=== PATIENT | female | born 1940 | race Caucasian/White ===

== ENCOUNTER 2018-10-07 23:15 | Emergency (ER) | payer MEDICARE, OTHER, SELFPAY ==
[2018-10-07 23:17] VITALS: BP 166/95; PULSE 90; RESP 18; TEMP 36.7; O2SAT 96; BMI 34.9
--- NOTE | 2018-10-07 23:49 | ED.VISSUMM ---
- ER Visit Summary Date of Service: 10/07/18 Chief Complaint: Abdominal pain History of Present Illness: The patient is a 78 F who presents with abdominal pain. Symptoms began about 4 hours ago. She ate some tortilla chips with guacamole tonight which she states was spicy. She complains of a tightness around her upper abdomen all the way around to her back. She also complains of feeling bloated. She has been having intermittent similar symptoms for about the past year but is always gone away on its own. Patient symptoms were more consistent tonight so she presented here. She currently rates her pain as an 8 out of 10. She denies any nausea vomiting diarrhea fevers chest pain shortness of breath. She has not noticed any exacerbating or relieving factors. She denies any history of abdominal surgery. No cough. No shortness of breath. Physical Examination: Afebrile blood pressure 166/95 Moist mucous membranes Heart regular rate and rhythm Lungs are clear Abdomen soft nondistended she does have some epigastric and left upper quadrant tenderness no guarding no rebound no [place] sign Back nontender no CVA tenderness Alert Test Results: CBC CMP lipase notable for BUN 42, creatinine 1.25. Hemoglobin 10.9. CT of the abdomen and pelvis shows no acute findings. KG shows normal sinus rhythm at a rate of 76. Emergency Department Course and Treatment: Patient was treated here with IV fluids and Toradol. Initial concern was that this may be related to biliary colic. Workup as above is unremarkable. On reevaluation patient is resting comfortably no distress. It may be related to stomach pathology such as gastritis. We will start on proton pump inhibitor therapy and the patient was advised to follow-up with her primary care physician. She understands to return for new or worsening symptoms. She was discharged. Treatment Plan: [] Disposition: Discharge Impression: Epigastric abdominal pain This note was generated with MyWants dictation software. It may contain incorrect words, spelling, and punctuation that were not noted in review of the chart prior to signing ED Disposition - Plan for ED Patient: Instructions: ED Abdominal Pain Unkn Cause Prescriptions: Omeprazole [Prilosec] 20 mg PO DAILY #30 cap Referrals: Sukhjinder Garcia MD [Primary Care Provider] -
[2018-10-07] MEDS: Ketorolac 30 MG/ML Syringe 15 MG IV (23:56)
[2018-10-07] MEDS: 0.9% Normal Saline 1,000 ML 1000 ML IV (23:56)
[2018-10-07 23:57] LABS: Absolute Lymphocyte Count 2.23 X10^3/ul (0.83-4.51); Absolute Neutrophil Count 4.5 X10^3/uL (2.0-7.7); Basophil# 0.02 X10^3/uL; Basophil% 0.3 % (0-1); Eosinophil# 0.29 X10^3/uL; Eosinophils% 3.8 % (0-5); Hematocrit 35.1 % (37-47); Hemoglobin 10.9 g/dl (12.0-15.0); Lymphocyte # 2.23 X10^3/ul (4.0); Lymphocyte % 28.9 % (19-41); Mean Corp Hgb Conc 31.1 g/gl (32-36); Mean Corpuscular Hgb 29.1 pg (27.0-32.0); Mean Corpuscular Volume 93.9 fL (81-99); Mean Platelet Vol. 10.7 fl (6.2-12.0); Monocyte% 9.1 % (0-10); Neutrophil # 4.45 X10^3/uL (2.7-7.7); Neutrophil % 57.6 % (47-70); POSITIVE COUNT NO; POSITIVE DIFFERENTIAL NO; POSITIVE MORPHOLOGY NO; Platelet Count 194 K/mm3 (150-450); RBC Distribution Width CV 14.7 % (11.6-14.6); RBC Distribution Width SD 47.4 fl (35.1-43.9); Red Blood Count 3.74 M/mm3 (4.2-5.4); White Blood Count 7.7 K/mm3 (4.4-11.0)
[2018-10-08 00:13] LABS: ALB/GLOB Ratio 1.1 RATIO (0.9-2.4); AST(SGOT) 18 U/L (15-37); Alanine Aminotransfer ALT/SGPT 24 U/L (13-56); Albumin, Serum 3.4 g/dL (3.2-5.0); Alkaline Phosphatase 63 U/L (45-117); Anion Gap 6 (5-15); BUN 42 mg/dL (7-18); BUN/Creat Ratio 33.6 RATIO (10-20); Calcium,Total 8.5 mg/dL (8.5-10.1); Chloride 104 mmol/L (98-107); Creatinine, Serum 1.25 mg/dL (0.55-1.02); EST Glomerular Filtration Rate 44 mL/min (>60); Est Glom Filt Rate - Afr Amer 53 mL/min (>60); Estimated Creatinine Clearance 27.99 ml/min; Globulin 3.2 g/dL (2.2-4.2); Glucose 194 mg/dL (74-106); Lipase 194 U/L (73-393); Potassium 4.2 mmol/L (3.5-5.1); Protein, Total 6.6 g/dL (6.4-8.2); Sodium Level 137 mmol/L (136-145)
[2018-10-08 00:37] LABS: Bacteria 0 SEEN /hpf (None Seen); Mucous, Urine 0 SEEN /hpf (<or=2+); Red Blood Cells-Urine 0 SEEN /hpf (0-5); Squamous Epithelial Cells - UA 0 SEEN /hpf (5-10)
[2018-10-08 00:39] LABS: Color, Urine Yellow (Yellow); Glucose, Dipstick Normal (Normal); Ketone-Dipstick Negative (Negative); Leukocyte Esterase-Dipstick 500 /ul (Negative); Nitrite-Dipstick Negative (Negative); Occult Blood-Urine Negative /ul (Negative); Protein-Dipstick Negative (Negative); Urine Bilirubin Dipstick Negative (Negative); Urine Clarity Clear (Clear); Urine Urobilinogen Normal (Normal)
[2018-10-08 00:45] LABS: White Blood Cells 10-25 SEEN /hpf (0-5)
--- NOTE | 2018-10-08 02:26 | EKG12_ITS ---
Test Reason : ABD PAIN Blood Pressure : / mmHG Vent. Rate : 076 BPM Atrial Rate : 076 BPM P-R Int : 164 ms QRS Dur : 090 ms QT Int : 360 ms P-R-T Axes : 069 011 046 degrees QTc Int : 405 ms Normal sinus rhythm Consider precordial lead misplacement (V1-V3) Recommend repeat ECG Confirmed by IRAIDA ROWLAND, RADHA ([id number]), assistant production editor BENITO HEAD ([id number]) on 10/11/2018 2:07:34 PM Referred By: ROSANNE Confirmed By:RADHA KHOURY MD
--- NOTE | 2018-10-08 02:27 | ED.DEP ---
ED Disposition - Plan for ED Patient: Instructions: ED Abdominal Pain Unkn Cause Prescriptions: Omeprazole [Prilosec] 20 mg PO DAILY #30 cap Referrals: Sukhjinder Garcia MD [Primary Care Provider] -
[2018-10-08 03:09] VITALS: RESP 16
--- NOTE | 2018-10-08 23:48 | CT_ITS ---
STUDY: CT ABDOMEN AND PELVIS WITH CONTRAST REASON FOR EXAM: Female, 78 years old. Abdominal pain RADIATION DOSAGE (If Supplied By Facility): CTDIvol = ( 21.82 ) mGy, DLP = ( 1107.81 ) mGycm TECHNIQUE: Transaxial images were obtained from the dome of the diaphragm to the symphysis pubis without oral contrast. 100ML IV Isovue 300 was administered. Sagittal and coronal images were reconstructed. Individualized dose optimization techniques were used for this CT. COMPARISON: None. FINDINGS: The lung bases are clear. The liver is normal. No dilated intrahepatic biliary radicles. The gallbladder is markedly contracted and contains no calculi. The spleen is normal. The pancreas is normal. Both adrenals are normal. The kidneys are normal with no masses, calculi or hydronephrosis The stomach is normal. There is no bowel distention, acute appendicitis or diverticulitis. No constricting lesions are seen in large bowel. The abdominal wall is intact with no hernias. There is no ascites or any free intraperitoneal air. No indication of epiploic appendagitis The vascular structures in the retroperitoneum are normal. There is no retrocrural, retroperitoneal or mesenteric adenopathy. Degenerative changes of the lower thoracic and upper lumbosacral spine The urinary bladder is normal.--The uterus is normal. There is no inguinal or pelvic adenopathy. There is no inguinal hernia. . CT/Abdomen/Pelvis W IV Cont ONLY IMPRESSION: No acute findings in the abdomen and pelvis. Specifically there is no acute appendicitis or diverticulitis. No renal calculi. No hydronephrosis Electronically Signed: Jeff Bauer MD at 2:20 EDT Tel , Service support ,
== END 2018-10-08 03:09 | disposition home or self-care (01) ==
LOC: ED 23:56
PROVIDERS: Emergency Provider Emergency Medicine; Family Provider Family Medicine; PCP Family Medicine
DX: R10.13 Epigastric pain (principal); I10 Essential (primary) hypertension; E11.9 Type 2 diabetes mellitus without complications; Z79.84 Long term (current) use of oral hypoglycemic drugs; Z79.899 Other long term (current) drug therapy
CPT/HCPCS: 74177; 80053; 81001; 83690; 85025; 93005; 96361; 96374; 99283; J7030; Q9967; A4216

== ENCOUNTER 2020-03-21 14:41 | Inpatient (IN) | payer MEDICARE, OTHER, SELFPAY ==
[2020-03-21] VITALS (10 sets, daily range): BP systolic 105–177; BP diastolic 45–90; PULSE 77–113; RESP 16–34; TEMP 36.7–39.4; O2SAT 92–97; BMI 35.4; BMI 35.6
--- NOTE | 2020-03-21 15:02 | ED.VISSUMM ---
- ER Visit Summary Date of Service: 03/21/20 Chief Complaint: Elevated blood sugar History of Present Illness: The patient is a 79 F presenting with elevated blood sugar. Patient states that her blood sugar has been running in the 200s. Over last 2 days it has been running in 300s. She took her 's Flomax 2 days ago. She is unsure if this is related. She denies fever. Denies chest pain or shortness of breath. Denies abdominal pain, nausea, vomiting. Denies urinary complaints. Denies other complaints. Physical Examination: Vitals are stable. Patient is afebrile. Alert no acute distress. HEENT exam is unremarkable. Neck is supple. Lungs are clear and equal bilaterally. Heart is regular rate and rhythm. Abdomen is soft nontender nondistended. No guarding or rebound Extremities are unremarkable. Skin is warm and dry. No focal neurologic deficit. Remainder of exam is unremarkable. Emergency Department Course and Treatment: CBC shows white count 18.3. Chemistries show sodium 130, glucose 326, BUN 42, creatinine 2.17. Previous creatinine 1.25. Chest x-ray shows no acute process. Urinalysis shows 50-100 white blood cells, 4+ bacteria. Urine culture was sent. Acetone negative. Patient was given Rocephin IV, IV fluids. Discussed with the hospitalist for admission. Disposition: Admission Impression: Cystitis, SOLO, hyponatremia This note was generated with KARAL[employer] dictation software. It may contain incorrect words, spelling, and punctuation that were not noted in review of the chart prior to signing ED Disposition - Plan for ED Patient: Referrals: Sukhjinder Garcia MD [Primary Care Provider] -
[2020-03-21 15:22] LABS: Absolute Lymphocyte Count 0.56 X10^3/uL (0.83-4.51); Absolute Neutrophil Count 15.9 X10^3/uL (2.0-7.7); Basophil# 0.03 X10^3/uL; Basophil% 0.2 % (0-1); Eosinophil# 0.21 X10^3/uL; Eosinophils% 1.2 % (0-5); Hematocrit 35.7 % (37-47); Hemoglobin 11.7 g/dL (12.0-15.0); Lymphocyte # 0.56 X10^3/ul (4.0); Lymphocyte % 3.1 % (19-41); Mean Corp Hgb Conc 32.8 g/dL (32-36); Mean Corpuscular Hgb 30.2 pg (27.0-32.0); Mean Platelet Vol. 11.6 fl (6.2-12.0); Monocyte# 1.11 X10^3/uL; Monocyte% 6.1 % (0-10); NRBC Flagged by Analyzer 0 % (0-5); Neutrophil # 15.87 X10^3/uL (2.7-7.7); Neutrophil % 86.8 % (47-70); POSITIVE DIFFERENTIAL YES; POSITIVE MORPHOLOGY YES; Platelet Count 172 K/mm3 (150-450); RBC Distribution Width CV 13.7 % (11.6-14.6); RBC Distribution Width SD 46.4 fl (35.1-43.9); Red Blood Count 3.88 M/mm3 (4.2-5.4); White Blood Count 18.3 K/mm3 (4.4-11.0)
[2020-03-21 15:27] LABS: Differential Indicated SCAN CRITERIA MET
--- NOTE | 2020-03-21 15:45 | RAD_ITS ---
STUDY: X-RAY CHEST REASON FOR EXAM: Female, 79 years old. SOB TECHNIQUE: Single AP portable view of the chest. COMPARISON: None. FINDINGS: The lungs are clear and expanded. There is no demonstrated pleural abnormality. Normal size heart. Normal mediastinum and eleuterio. Normal visualized pulmonary arteries. Normal visualized aortic arch and descending thoracic aorta. Normal visualized thoracic spine. Normal visualized ribs, clavicles, and shoulders. There is no demonstrated abnormality of the visualized soft tissue structures of the upper abdomen. RAD/Chest 1 View (Portable) IMPRESSION: Normal x-ray examination of the chest. Electronically Signed: Hermes Whitehead MD at 16:06 EDT Tel , Service support ,
[2020-03-21 15:51] LABS: Anion Gap 9 (5-15); BUN 42 mg/dL (7-18); BUN/Creat Ratio 19.4 RATIO (10-20); Calcium,Total 9.7 mg/dL (8.5-10.1); Chloride 99 mmol/L (98-107); Creatinine, Serum 2.17 mg/dL (0.55-1.02); EST Glomerular Filtration Rate 23 mL/min (>60); Est Glom Filt Rate - Afr Amer 28 mL/min (>60); Estimated Creatinine Clearance 15.86 ml/min; Glucose 326 mg/dL (74-106); Potassium 4.4 mmol/L (3.5-5.1); Sodium Level 130 mmol/L (136-145)
[2020-03-21 16:10] LABS: Mucous, Urine 0 SEEN /hpf (<or=2+); Squamous Epithelial Cells - UA 0 SEEN /hpf (5-10)
[2020-03-21 16:33] LABS: Color, Urine Yellow (Yellow); Glucose, Dipstick 1000 mg/dl (Normal); Ketone-Dipstick 50 mg/dl (Negative); Leukocyte Esterase-Dipstick 500 /ul (Negative); Nitrite-Dipstick Negative (Negative); Occult Blood-Urine 250 /ul (Negative); Protein-Dipstick 100 mg/dl (Negative); Urine Bilirubin Dipstick Negative (Negative); Urine Clarity Cloudy (Clear); Urine Urobilinogen Normal (Normal)
[2020-03-21 17:02] LABS: Bacteria 4+ /hpf (None Seen); White Blood Cells 50-100 SEEN /hpf (0-5)
[2020-03-21 17:03] LABS: Red Blood Cells-Urine 5-10 SEEN /hpf (0-5)
--- NOTE | 2020-03-21 17:13 | NURSING ---
DR TESSA AYALA
--- NOTE | 2020-03-21 17:34 | NURSING ---
MED SURG TERELETSSATISH OBS CYSTITIS, SOLO
--- NOTE | 2020-03-21 17:35 | PCM.HP.STD ---
Problem List (1) UTI (urinary tract infection) Status: Acute (2) SOLO (acute kidney injury) Status: Acute (3) Hyponatremia Status: Chronic (4) HTN (hypertension) Status: Chronic (5) Diabetes Status: Chronic Qualifiers: Diabetes mellitus type: type 2 History of Present Illness Date of Admission: 03/21/20 Chief Complaint: high blood sugar The patient is a 79 year old F with pmhx DMt2, HTN, obesity who presented to the ER with concern of her blood sugar running high,. She has noticed that her blood sugars have been running in the 200s. She has also noticed fevers and chills at home for 2 days. She denies dysuria, but did notice that she has had urinary incontinence. She took one of her husbands flomax pills because she thought that might help. In the ER she appears to have a UTI, SOLO, and elevated blood sugar. Her PCP treated her for UTI about 2 months ago as an outpatient. [] Past Medical History Past Medical History (Chronic Problems): Chronic Problems HTN (hypertension) (Chronic) Diabetes (Chronic) Hyponatremia (Chronic) Allergies diphenhydramine HCl [From Benadryl] Adverse Reaction (Verified 03/21/20 14:45) Other CAN'T SLEEP SLEEPING PILL Adverse Reaction (Uncoded 03/21/20 14:45) Other CAUSES ANXIETY, NERVOUS FEELING Home Medications: Ambulatory Orders Medication Instructions Recorded Fish Oil/Dha/Epa [Fish Oil 1,200 1 each PO BID 11/06/15 mg Fish Oil] Glimepiride [Amaryl] 4 mg PO BID 11/06/15 Lisinopril [Zestril] 5 mg PO DAILY 11/06/15 Cholecalciferol (Vitamin D3) 5,000 unit PO DAILY 03/21/20 [Vitamin D3] Garlic 1,000 mg PO DAILY 03/21/20 Turmeric Root Extract [Turmeric] 500 mg PO DAILY 03/21/20 Ubidecarenone [Co Q-10] 100 mg PO DAILY 03/21/20 Surgical History: no surgical history Psychiatric History: No pertinent psych hx 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 Denies: Weight Change HEENT: Denies: Head Aches, Sinus Congestion, Sinus Drainage Cardiovascular: Denies: Chest Pain, Chest Pressure, Chest Tightness, Palpitations, Syncope Respiratory: Denies: Cough, Shortness of Breath, Shortness of breath at rest, Shortness of breath upon exertion, Sputum production Gastrointestinal: Denies: Abdominal Pain, Diarrhea, Nausea, Vomiting Genitourinary: Reports: Incontinence. Denies: Dysuria, Frequency, Urgency Musculoskeletal: Denies: Joint Pain, Joint Tenderness Skin: Denies: Rash, Wounds Neurological: Denies: Numbness, Tingling, Focal weakness Psychiatric: Denies: Anxiety, Depression, Homicidal Ideations, Suicidal Ideations Hematologic/ Lymphatic: Denies: Easy Bruising, Easy Bleeding VTE Information - Inpt Only VTE Present on Admission: No VTE Mechan Device Prophylaxis: None VTE Pharm Prophylaxis ordered?: Yes Patient Problems: Active and Suspected Problems UTI (urinary tract infection) (Acute) SOLO (acute kidney injury) (Acute) - Physical Exam Vitals/I&O's: Vital Signs Temp Pulse Resp BP Pulse Ox 98.0 F 83 18 105/48 L 95 03/21/20 14:42 03/21/20 16:24 03/21/20 16:24 03/21/20 16:24 03/21/20 16:24 Oxygen Delivery Method Room Air Weight: 187 lb 2.759 oz Body Mass Index (BMI) 35.4 Finger Stick Blood Glucose 211 Intake and Output for Last 24 Hours 03/19/20 03/20/20 03/21/20 23:59 23:59 23:59 Intake Total 1000 / 1000 Balance 1000 / 1000 General: Alert, Oriented x3, Cooperative HEENT: Atraumatic, PERRLA, EOMI, Normocephalic Neck: Supple, No JVD, Negative Carotid Bruits Lungs: Clear to auscultation, Normal air movement Cardiovascular: Regular rate, No murmurs Abdomen: Bowel Sounds Present, Soft, Non Tender Extremities: No edema, Capillary Refill Less than 3 Seconds Skin: No rashes, No breakdown Musculoskeletal: No Tenderness to Palpation of Joints or Extremities Neurological: Cranial nerves II-XII grossly intact Psych/Mental Status: Normal Affect, Appropriate, Alert and oriented to time, place, person, mood and affect Laboratory Results 03/21/20 15:10: WBC 18.3 H, RBC 3.88 L, Hgb 11.7 L, Hct 35.7 L, MCV 92.0, MCH 30.2, MCHC 32.8, RDW Std Deviation 46.4 H, RDW Coeff of Angelina 13.7, Plt Count 172, MPV 11.6, Immature Gran % (Auto) 2.600 H, Neut % (Auto) 86.8 H, Lymph % (Auto) 3.1 L, [place] % (Auto) 6.1, Eos % (Auto) 1.2, Baso % (Auto) 0.2, Absolute Neuts (auto) 15.9 H, Absolute Lymphs (auto) 0.56 L, Nucleated RBC % 0, Differential Comment COMMENT 03/21/20 15:10: Sodium 130 L, Potassium 4.4, Chloride 99, Carbon Dioxide 22.0, Anion Gap 9, BUN 42 H, Creatinine 2.17 H, Estim Creat Clear Calc 15.86, Est GFR (MDRD) Af Amer 28 L, Est GFR (MDRD) Non-Af 23 L, BUN/Creatinine Ratio 19.4, Glucose 326 H, Calcium 9.7 03/21/20 15:10: Acetone Level NEGATIVE 03/21/20 16:00: Urine Color Yellow, Urine Clarity Cloudy, Urine pH 5.0, Ur Specific [place] 1.020, Urine Protein 100 H, Urine Glucose (UA) 1000 H, Urine Ketones 50 H, Urine Occult Blood 250 H, Urine Nitrite Negative, Urine Bilirubin Negative, Urine Urobilinogen Normal, Ur Leukocyte Esterase 500 H, Urine RBC 5-10 SEEN, Urine WBC 50-100 SEEN, Ur Squamous Epith Cells 0 SEEN, Urine Bacteria 4+, Urine Mucus 0 SEEN Current Medications Ceftriaxone Sodium (Rocephin) 1 gm in 50 mls @ 100 mls/hr IV X1 ONE Stop: 03/21/20 17:43 Assessment/Plan All Active Problems UTI (urinary tract infection) (Acute) SOLO (acute kidney injury) (Acute) 1. Acute cystitis - + UA, + WBC elevation. No other evidence to suggest sepsis. Start rocephin and await cx. 2. SOLO - likely due to dehydration and UTI - hydrate with IVF overnight. hold lisinopril. 3. Hyponatremia - suspect Hypovolemic - IV NS overnight. 4. DMt2 with hyperglycemia - add SSI 5. HTN - hold lisinopril DVT ppx: heparin This patient was seen by Pancho White PA-C under the supervision of Dr. Macias.
[2020-03-21] MEDS: Ceftriaxone 1 GM/50 ML BAG IV (17:44)
[2020-03-21] MEDS: 0.9% Normal Saline 1,000 ML 150 ML IV (18:43)
[2020-03-21 18:51] LABS: Bedside Glucose 274 mg/dL (70-110)
[2020-03-21] MEDS: Acetaminophen 325 MG Tablet 650 MG PO (19:44)
--- NOTE | 2020-03-21 19:53 | CT_ITS ---
STUDY: CT ABDOMEN AND PELVIS WITHOUT CONTRAST REASON FOR EXAM: Female, 79 years old. LEFT FLANK PAIN, CONCERN FOR STONE, HX UTI,SOLO, HTN, DIAB RADIATION DOSAGE (If Supplied By Facility): CTDIvol = ( 21.91 ) mGy, DLP = ( 1039.75 ) mGycm TECHNIQUE: Transaxial images were obtained from the dome of the diaphragm to the symphysis pubis without oral contrast, and without intravenous contrast. Sagittal and coronal images were reconstructed. Individualized dose optimization techniques were used for this CT. COMPARISON: CT of abdomen and pelvis dated October 08, 2018 FINDINGS: Tiny right pleural effusion with minimal pleural thickening and subsegmental atelectasis is noted. Minor pleural thickening is present at posterior aspect of the left lower lobe. Some interstitial fibrotic changes are also present in both lung bases. Significant mitral valve calcifications are present. Normal liver. The gallbladder is contracted. Normal spleen. Normal pancreas. Normal bilateral adrenal glands. Mild right hydronephrosis and hydroureter and perinephric stranding as well as mild enlargement of the right kidney is present. No visualized radiopaque stone of the kidney or ureter or bladder. High probability a recently passed right kidney stone obscured by the fluid in the bladder. Normal left kidney. Normal visualized stomach. Normal small intestine. There are multiple colonic diverticula consistent with diverticulosis. The appendix is visualized and appears normal. There is diffuse atherosclerotic calcification of the abdominal aorta, without a demonstrated aneurysm. Normal inferior vena cava. Normal retroperitoneum. Normal urinary bladder. Unremarkable uterus and adnexal regions. Normal abdominal wall. There are diffuse degenerative changes of the visualized lumbar spine. CT/Abdomen/Pelvis without Cont IMPRESSION: Mild right hydronephrosis and hydroureter and perinephric stranding as well as mild enlargement of the right kidney is present. No visualized radiopaque stone of the kidney or ureter or bladder. High probability a recently passed right kidney stone obscured by the fluid in the bladder. Colonic diverticulosis. Electronically Signed: Andrew Powers MD at 21:07 EDT , Service support ,
[2020-03-21] MEDS: 0.9% Normal Saline 1,000 ML 999 ML IV ×2 (20:01→22:04)
[2020-03-21 21:14] LABS: Lactic Acid 1.7 mmol/L (0.4-1.9)
[2020-03-21] MEDS: Insulin Lispro 100 UNIT/ML INSULN.PEN SC (21:58)
[2020-03-21 22:50] LABS: Bedside Glucose 249 mg/dL (70-110)
[2020-03-22 03:27] VITALS: BP 121/61; PULSE 90; RESP 18; TEMP 36.9; O2SAT 96
[2020-03-22] MEDS: 0.9% Normal Saline 1,000 ML 150 ML IV ×2 (03:29→09:46)
[2020-03-22 06:31] LABS: Absolute Neutrophil Count 13.6 X10^3/uL (2.0-7.7); Basophil# 0.04 X10^3/uL; Basophil% 0.3 % (0-1); Eosinophils% 1.3 % (0-5); Hematocrit 33.9 % (37-47); Lymphocyte % 3.3 % (19-41); Mean Corp Hgb Conc 32.4 g/dL (32-36); Mean Corpuscular Hgb 30.6 pg (27.0-32.0); Mean Corpuscular Volume 94.4 fL (81-99); Mean Platelet Vol. 10.5 fl (6.2-12.0); Monocyte# 0.68 X10^3/uL; Monocyte% 4.4 % (0-10); NRBC Flagged by Analyzer 0 % (0-5); Neutrophil # 13.64 X10^3/uL (2.7-7.7); Neutrophil % 88.6 % (47-70); POSITIVE DIFFERENTIAL YES; POSITIVE MORPHOLOGY YES; Platelet Count 132 K/mm3 (150-450); RBC Distribution Width CV 13.8 % (11.6-14.6); RBC Distribution Width SD 48.2 fl (35.1-43.9); Red Blood Count 3.59 M/mm3 (4.2-5.4); White Blood Count 15.4 K/mm3 (4.4-11.0)
[2020-03-22 06:33] LABS: Differential Indicated SCAN CRITERIA MET
[2020-03-22] MEDS: Insulin Lispro 100 UNIT/ML INSULN.PEN SC ×2 (06:45→16:53)
[2020-03-22 06:50] LABS: Differential Comment SCANNED
[2020-03-22 06:50] LABS: Bedside Glucose 237 mg/dL (70-110)
[2020-03-22 06:56] LABS: Anion Gap 7 (5-15); BUN 42 mg/dL (7-18); BUN/Creat Ratio 23.1 RATIO (10-20); Calcium,Total 8.4 mg/dL (8.5-10.1); Chloride 107 mmol/L (98-107); Creatinine, Serum 1.82 mg/dL (0.55-1.02); EST Glomerular Filtration Rate 28 mL/min (>60); Est Glom Filt Rate - Afr Amer 34 mL/min (>60); Glucose 232 mg/dL (74-106); Potassium 4.2 mmol/L (3.5-5.1); Sodium Level 137 mmol/L (136-145)
[2020-03-22 07:41] VITALS: BP 158/68; PULSE 93; RESP 18; TEMP 38.2; O2SAT 98
--- NOTE | 2020-03-22 07:42 | PCM.PN.HOSP ---
Patient Problems: Active and Suspected Problems UTI (urinary tract infection) (Acute) SOLO (acute kidney injury) (Acute) Vitals/I&O's: Vital Signs Temp Pulse Resp BP Pulse Ox 100.7 F H 93 18 158/68 H 98 03/22/20 07:41 03/22/20 07:41 03/22/20 07:41 03/22/20 07:41 03/22/20 07:41 Oxygen Delivery Method Room Air Weight: 188 lb 11.451 oz Body Mass Index (BMI) 35.6 Finger Stick Blood Glucose 211 Intake and Output for Last 24 Hours 03/20/20 03/21/20 03/22/20 23:59 23:59 23:59 Intake Total 3405.0 / 3555.0 1155 / 1155 Balance 3405.0 / 3555.0 1155 / 1155 Laboratory Results 03/21/20 15:10: WBC 18.3 H, RBC 3.88 L, Hgb 11.7 L, Hct 35.7 L, MCV 92.0, MCH 30.2, MCHC 32.8, RDW Std Deviation 46.4 H, RDW Coeff of Angelina 13.7, Plt Count 172, MPV 11.6, Immature Gran % (Auto) 2.600 H, Neut % (Auto) 86.8 H, Lymph % (Auto) 3.1 L, [place] % (Auto) 6.1, Eos % (Auto) 1.2, Baso % (Auto) 0.2, Absolute Neuts (auto) 15.9 H, Absolute Lymphs (auto) 0.56 L, Nucleated RBC % 0, Differential Comment COMMENT 03/21/20 15:10: Sodium 130 L, Potassium 4.4, Chloride 99, Carbon Dioxide 22.0, Anion Gap 9, BUN 42 H, Creatinine 2.17 H, Estim Creat Clear Calc 15.86, Est GFR (MDRD) Af Amer 28 L, Est GFR (MDRD) Non-Af 23 L, BUN/Creatinine Ratio 19.4, Glucose 326 H, Calcium 9.7 03/21/20 15:10: Acetone Level NEGATIVE 03/21/20 16:00: Urine Color Yellow, Urine Clarity Cloudy, Urine pH 5.0, Ur Specific [place] 1.020, Urine Protein 100 H, Urine Glucose (UA) 1000 H, Urine Ketones 50 H, Urine Occult Blood 250 H, Urine Nitrite Negative, Urine Bilirubin Negative, Urine Urobilinogen Normal, Ur Leukocyte Esterase 500 H, Urine RBC 5-10 SEEN, Urine WBC 50-100 SEEN, Ur Squamous Epith Cells 0 SEEN, Urine Bacteria 4+, Urine Mucus 0 SEEN 03/21/20 18:39: POC Glucose 274 H 03/21/20 20:23: Lactic Acid 1.7 03/21/20 21:54: POC Glucose 249 H 03/22/20 06:15: WBC 15.4 H, RBC 3.59 L, Hgb 11.0 L, Hct 33.9 L, MCV 94.4, MCH 30.6, MCHC 32.4, RDW Std Deviation 48.2 H, RDW Coeff of Angelina 13.8, Plt Count 132 L, MPV 10.5, Immature Gran % (Auto) 2.100 H, Neut % (Auto) 88.6 H, Lymph % (Auto) 3.3 L, [place] % (Auto) 4.4, Eos % (Auto) 1.3, Baso % (Auto) 0.3, Absolute Neuts (auto) 13.6 H, Absolute Lymphs (auto) 0.50 L, Nucleated RBC % 0, Differential Comment SCANNED 03/22/20 06:15: Sodium 137, Potassium 4.2, Chloride 107, Carbon Dioxide 23.0, Anion Gap 7, BUN 42 H, Creatinine 1.82 H, Estim Creat Clear Calc 18.60, Est GFR (MDRD) Af Amer 34 L, Est GFR (MDRD) Non-Af 28 L, BUN/Creatinine Ratio 23.1 H, Glucose 232 H, Calcium 8.4 L 03/22/20 06:15: Hemoglobin A1c Pending 03/22/20 06:43: POC Glucose 237 H Current Medications Acetaminophen (Tylenol) 650 mg PO Q4H PRN PRN PRN Reason: Pain Score 1-10/Temp > 100.7 F Al Hydroxide/Mg Hydroxide (Mylanta Ii) 30 ml PO Q6H PRN PRN PRN Reason: Gastric Burning Albuterol Sulfate (Ventolin Aerosols) 2.5 mg INHALATION Q2H PRN PRN PRN Reason: Dyspnea, wheezing Bisacodyl (Dulcolax) 10 mg PO DAILY PRN PRN PRN Reason: Constipation Docusate Sodium (Colace) 200 mg PO BID PRN PRN PRN Reason: Constipation Hydralazine HCl (Apresoline Iv) 10 mg IV Q4H PRN PRN PRN Reason: SBP > 160 Sodium Chloride () 1,000 mls @ 150 mls/hr IV .[id number] [facility] Last Admin: 03/22/20 03:29 Dose: 150 mls/hr Documented by: Ceftriaxone Sodium 2 gm/ (Sodium Chloride) 50 mls @ 100 mls/hr IV Q24 [facility] Insulin Human Lispro (Humalog Kwikpen (Bkc)) 0 unit SC ACHS [facility]; Protocol Last Admin: 03/22/20 06:45 Dose: 6 unit Documented by: Morphine Sulfate () 1 - 2 mg IV Q4H PRN PRN PRN Reason: Pain Score 4-5/10 Morphine Sulfate () 2 - 4 mg IV Q3H PRN PRN PRN Reason: Pain Score 6-10/10 Morphine Sulfate () 2 - 4 mg IV Q3H PRN PRN PRN Reason: Pain Score 6-10/10 Ondansetron HCl (Zofran) 4 mg IV Q8H PRN PRN PRN Reason: Nausea Oxycodone HCl (Oxyir) 5 mg PO Q4H PRN PRN PRN Reason: Pain Score 4-5/10 Polyethylene Glycol (Miralax) 17 gm PO DAILY [facility] Prochlorperazine Edisylate (Compazine Iv) 10 mg IV Q6H PRN PRN PRN Reason: Nausea/Vomiting Sodium Chloride () 10 - 40 ml IV UD PRN PRN Reason: SALINE FLUSH STROKE Vital Signs/Narrative: Vital Signs Temp Pulse Resp BP Pulse Ox 03/22/20 07:41 100.7 F H 93 18 158/68 H 98 Medical Necessity - Tobacco Use Smoking Status: Never smoker Tobacco Use: Non-smoker Assessment/Plan All Active Problems UTI (urinary tract infection) (Acute) SOLO (acute kidney injury) (Acute) 1. Acute cystitis - + UA, + WBC elevation. No other evidence to suggest sepsis. Start rocephin and await cx. 2. SOLO - likely due to dehydration and UTI - hydrate with IVF overnight. hold lisinopril. 3. Hyponatremia - suspect Hypovolemic - IV NS overnight. 4. DMt2 with hyperglycemia - add SSI 5. HTN - hold lisinopril DVT ppx: heparin
[2020-03-22] MEDS: Acetaminophen 325 MG Tablet 650 MG PO ×2 (07:48→21:02)
[2020-03-22 08:49] LABS: Hemoglobin A1c 8.1 % (3.8-5.6)
--- NOTE | 2020-03-22 10:10 | CASEMGMT ---
RN CM Face to Face with patient for initial transition planning/care coordination assessment. RN CM introduced self and role at [facility]. Patient lying in bed, alert and oriented. Patient willing to participate in assessment and is able to answer all questions appropriately. Care providers, pharmacy, and demographics verified. Patient wishes to discharge home, denies need for home health at this time. Patient states he has no further needs or concerns at this time. CM to follow for discharge planning needs that may arise. PCP: Radha Specialists: none Preferred Pharmacy: [facility] Insurance: Moira LOU Prescription Benefit: yes Living Will/HPOA: yes, Kvng Hdz LNOK: Living Arrangements: Patient lives with in a 2 story home with bed and bath on the first floor. Patient states she is independent at home. Transportation: self, DME/HHC: Patient states she has raised toilet at home. Patient denies additional DME. Patient denies previous HHC Disposition Plan: Patient to discharge home with family support and follow-up plans in place. Za HARPER, RN, CM
--- NOTE | 2020-03-22 10:16 | PCM.CONS.GEN ---
Problem List (1) Hydronephrosis Status: Acute (2) History of kidney stones Status: Acute (3) UTI (urinary tract infection) Status: Acute (4) SOLO (acute kidney injury) Status: Acute Reason for Consult Date of Consultation: 03/22/20 Reason for Consultation: Urinary tract infection, acute kidney injury, hydronephrosis and history of kidney stones History of Present Illness: The patient is a 80 year old F admitted to the hospital secondary to an evaluation for high blood sugars with fever. She was identified as having a significant urinary tract infection and her creatinine was elevated above 2 and white blood count elevated. She reports having 2 to 3 days of urge incontinence at home which is not normal for her. She complains of diffuse abdominal and low back pain bilaterally. No specific flank pain. She normally voids 4-5 times during the day and 3-4 times at night with no incontinence. She denies hematuria. She has had no increased urgency or frequency. She denies a sensation of pelvic organ prolapse. She has no history of pelvic surgery. There is no history of female cancers, coagulopathy and she is a non-smoker. She does report recent constipation but has had a good bowel movement today. She does have a history of kidney stones, approximately 3 years ago requiring surgical intervention. She does not have much further information aside from this. Past Medical History Past Medical History (Chronic Problems): Chronic Problems HTN (hypertension) (Chronic) Diabetes (Chronic) Hyponatremia (Chronic) Allergies diphenhydramine HCl [From Benadryl] Adverse Reaction (Verified 03/21/20 14:45) Other CAN'T SLEEP SLEEPING PILL Adverse Reaction (Uncoded 03/21/20 14:45) Other CAUSES ANXIETY, NERVOUS FEELING Home Medications: Ambulatory Orders Medication Instructions Recorded Fish Oil/Dha/Epa [Fish Oil 1,200 1 each PO BID 11/06/15 mg Fish Oil] Glimepiride [Amaryl] 4 mg PO BID 11/06/15 Lisinopril [Zestril] 5 mg PO DAILY 11/06/15 Cholecalciferol (Vitamin D3) 5,000 unit PO DAILY 03/21/20 [Vitamin D3] Garlic 1,000 mg PO DAILY 03/21/20 Turmeric Root Extract [Turmeric] 500 mg PO DAILY 03/21/20 Ubidecarenone [Co Q-10] 100 mg PO DAILY 03/21/20 Surgical History: no surgical history Psychiatric History: No pertinent psych hx FLORAL MERCHANDISER History: No pertinent FLORAL MERCHANDISER history Lives: Spouse/ Significant Other Smoking Status: Never smoker Tobacco Use: Non-smoker Alcohol: None Drugs: None - *Family History Maternal History Items: Diabetes Paternal History Items: No pertinent history Review of Systems Constitutional: Reports: Chills, Fever Eyes: Denies: Vision Change HEENT: Denies: Difficulty Swallowing, Visual Changes Cardiovascular: Denies: Chest Pain Respiratory: Denies: Shortness of Breath Gastrointestinal: Reports: Abdominal Pain, Constipation, Nausea. Denies: Vomiting Genitourinary: Reports: Incontinence, Nocturia. Denies: Dysuria, Frequency, Hematuria, Hesitancy, Retention, Urgency Gynecological: Denies: Vaginal bleeding Musculoskeletal: Denies: Muscle pain Skin: Denies: Wounds Neurological: Denies: Difficulty swallowing Patient Problems: Active and Suspected Problems UTI (urinary tract infection) (Acute) SOLO (acute kidney injury) (Acute) Hydronephrosis (Acute) History of kidney stones (Acute) - Physical Exam Vitals/I&O's: Vital Signs Temp Pulse Resp BP Pulse Ox 100.7 F H 93 18 158/68 H 98 03/22/20 07:41 03/22/20 07:41 03/22/20 07:41 03/22/20 07:41 03/22/20 07:41 Oxygen Delivery Method Room Air Weight: 85.6 kg Body Mass Index (BMI) 35.6 Finger Stick Blood Glucose 211 Intake and Output for Last 24 Hours 03/20/20 03/21/20 03/22/20 23:59 23:59 23:59 Intake Total 3405.0 / 3555.0 7.5 / 2096.5 Balance 3405.0 / 3555.0 2096. / 2096.5 General: Alert, Oriented x3, Cooperative, No apparent distress HEENT: Atraumatic, Normocephalic Oral: Moist Mucosa Neck: Supple, Trachea Midline Lungs: Normal air movement Cardiovascular: Regular rate Abdomen: Soft, Non-Distended, Tender - mild diffuse tenderness, no guarding Extremities: No cyanosis Skin: No rashes Musculoskeletal: No Muscle Wasting Neurological: Cranial nerves II-XII grossly intact Psych/Mental Status: Normal Affect Comment: No significant hydronephrosis on the CT, no stone. bilat stranding Laboratory Results 03/21/20 15:10: WBC 18.3 H, RBC 3.88 L, Hgb 11.7 L, Hct 35.7 L, MCV 92.0, MCH 30.2, MCHC 32.8, RDW Std Deviation 46.4 H, RDW Coeff of Angelina 13.7, Plt Count 172, MPV 11.6, Immature Gran % (Auto) 2.600 H, Neut % (Auto) 86.8 H, Lymph % (Auto) 3.1 L, Mathews % (Auto) 6.1, Eos % (Auto) 1.2, Baso % (Auto) 0.2, Absolute Neuts (auto) 15.9 H, Absolute Lymphs (auto) 0.56 L, Nucleated RBC % 0, Differential Comment COMMENT 03/21/20 15:10: Sodium 130 L, Potassium 4.4, Chloride 99, Carbon Dioxide 22.0, Anion Gap 9, BUN 42 H, Creatinine 2.17 H, Estim Creat Clear Calc 15.86, Est GFR (MDRD) Af Amer 28 L, Est GFR (MDRD) Non-Af 23 L, BUN/Creatinine Ratio 19.4, Glucose 326 H, Calcium 9.7 03/21/20 15:10: Acetone Level NEGATIVE 03/21/20 16:00: Urine Color Yellow, Urine Clarity Cloudy, Urine pH 5.0, Ur Specific [place] 1.020, Urine Protein 100 H, Urine Glucose (UA) 1000 H, Urine Ketones 50 H, Urine Occult Blood 250 H, Urine Nitrite Negative, Urine Bilirubin Negative, Urine Urobilinogen Normal, Ur Leukocyte Esterase 500 H, Urine RBC 5-10 SEEN, Urine WBC 50-100 SEEN, Ur Squamous Epith Cells 0 SEEN, Urine Bacteria 4+, Urine Mucus 0 SEEN 03/21/20 18:39: POC Glucose 274 H 03/21/20 20:23: Lactic Acid 1.7 03/21/20 21:54: POC Glucose 249 H 03/22/20 06:15: WBC 15.4 H, RBC 3.59 L, Hgb 11.0 L, Hct 33.9 L, MCV 94.4, MCH 30.6, MCHC 32.4, RDW Std Deviation 48.2 H, RDW Coeff of Angelina 13.8, Plt Count 132 L, MPV 10.5, Immature Gran % (Auto) 2.100 H, Neut % (Auto) 88.6 H, Lymph % (Auto) 3.3 L, Mathews % (Auto) 4.4, Eos % (Auto) 1.3, Baso % (Auto) 0.3, Absolute Neuts (auto) 13.6 H, Absolute Lymphs (auto) 0.50 L, Nucleated RBC % 0, Differential Comment SCANNED 03/22/20 06:15: Sodium 137, Potassium 4.2, Chloride 107, Carbon Dioxide 23.0, Anion Gap 7, BUN 42 H, Creatinine 1.82 H, Estim Creat Clear Calc 18.60, Est GFR (MDRD) Af Amer 34 L, Est GFR (MDRD) Non-Af 28 L, BUN/Creatinine Ratio 23.1 H, Glucose 232 H, Calcium 8.4 L 03/22/20 06:15: Hemoglobin A1c 8.1 H 03/22/20 06:43: POC Glucose 237 H Current Medications Acetaminophen (Tylenol) 650 mg PO Q4H PRN PRN PRN Reason: Pain Score 1-10/Temp > 100.7 F Last Admin: 03/22/20 07:48 Dose: 650 mg Documented by: Al Hydroxide/Mg Hydroxide (Mylanta Ii) 30 ml PO Q6H PRN PRN PRN Reason: Gastric Burning Albuterol Sulfate (Ventolin Aerosols) 2.5 mg INHALATION Q2H PRN PRN PRN Reason: Dyspnea, wheezing Bisacodyl (Dulcolax) 10 mg PO DAILY PRN PRN PRN Reason: Constipation Docusate Sodium (Colace) 200 mg PO BID PRN PRN PRN Reason: Constipation Hydralazine HCl (Apresoline Iv) 10 mg IV Q4H PRN PRN PRN Reason: SBP > 160 Sodium Chloride () 1,000 mls @ 150 mls/hr IV .Q6H40M [facility] Last Admin: 03/22/20 09:46 Dose: 150 mls/hr Documented by: Ceftriaxone Sodium 2 gm/ (Sodium Chloride) 50 mls @ 100 mls/hr IV Q24 [facility] Last Admin: 03/22/20 09:43 Dose: 100 mls/hr Documented by: Insulin Human Lispro (Humalog Allison (Bkc)) 0 unit SC ACHS [facility]; Protocol Last Admin: 03/22/20 06:45 Dose: 6 unit Documented by: Morphine Sulfate () 1 - 2 mg IV Q4H PRN PRN PRN Reason: Pain Score 4-5/10 Morphine Sulfate () 2 - 4 mg IV Q3H PRN PRN PRN Reason: Pain Score 6-10/10 Morphine Sulfate () 2 - 4 mg IV Q3H PRN PRN PRN Reason: Pain Score 6-10/10 Ondansetron HCl (Zofran) 4 mg IV Q8H PRN PRN PRN Reason: Nausea Oxycodone HCl (Oxyir) 5 mg PO Q4H PRN PRN PRN Reason: Pain Score 4-5/10 Polyethylene Glycol (Miralax) 17 gm PO DAILY [facility] Last Admin: 03/22/20 09:46 Dose: Not Given Documented by: Prochlorperazine Edisylate (Compazine Iv) 10 mg IV Q6H PRN PRN PRN Reason: Nausea/Vomiting Sodium Chloride () 10 - 40 ml IV UD PRN PRN Reason: SALINE FLUSH Assessment/Plan All Active Problems UTI (urinary tract infection) (Acute) SOLO (acute kidney injury) (Acute) Hydronephrosis (Acute) History of kidney stones (Acute) Given the improvement in her creatinine with 1 day of hydration, improvement in white blood cell count and unimpressive hydronephrosis on the CT scan, I would prefer to continue supportive care and antibiotics, await culture results and be prepared to place ureteral stent if necessary. I would recommend that we check a post void residual. We should start vaginal estrogen, d-mannose and vitamin C, aggressive management of any constipation, and that she have a cystoscopy in the outpatient setting for evaluation and prevention of urinary tract infection. Thank you for the privilege of this consult, I will follow with you
[2020-03-22 11:11] LABS: Bedside Glucose 192 mg/dL (70-110)
--- NOTE | 2020-03-22 13:48 | PN_ITS ---
<ParmjitIllia CARDING SUPERVISOR - Last Filed: 03/22/20 14:06> Patient Problems: Active and Suspected Problems UTI (urinary tract infection) (Acute) SOLO (acute kidney injury) (Acute) Hydronephrosis (Acute) History of kidney stones (Acute) Subjective: Patient seen and examined. Continues to have lower back pain. Denies fever, c hills. Denies nausea, vomiting. States she feels tired. - Physical Exam Vitals/I&O's: Vital Signs Temp Pulse Resp BP Pulse Ox 100.7 F H 93 18 158/68 H 98 03/22/20 07:41 03/22/20 07:41 03/22/20 07:41 03/22/20 07:41 03/22/20 07:41 Oxygen Delivery Method Room Air Weight: 188 lb 11.451 oz Body Mass Index (BMI) 35.6 Finger Stick Blood Glucose 211 Intake and Output for Last 24 Hours 03/20/20 03/21/20 03/22/20 23:59 23:59 23:59 Intake Total 3405.0 / 3555.0 2997.5 / 2997.5 Output Total 650 / 650 Balance 3405.0 / 3555.0 2347.5 / 2347.5 General: Alert, Oriented x3, Cooperative HEENT: Atraumatic, PERRLA, EOMI, Normocephalic Neck: Supple, No JVD, Negative Carotid Bruits Lungs: Clear to auscultation, Normal air movement Cardiovascular: Regular rate, No murmurs Abdomen: Bowel Sounds Present, Soft, Non Tender Extremities: No clubbing, No cyanosis, No edema, Capillary Refill Less than 3 Seconds Skin: No rashes, No breakdown Musculoskeletal: No Tenderness to Palpation of Joints or Extremities Neurological: Cranial nerves II-XII grossly intact, Neuro grossly intact Psych/Mental Status: Normal Affect, Appropriate Microbiology Past 72 Hours 03/21/20 16:00 Urine, Clean Catch Urine Culture - Preliminary GNR lactose liquor bridge operator helper Laboratory Results 03/21/20 15:10: WBC 18.3 H, RBC 3.88 L, Hgb 11.7 L, Hct 35.7 L, MCV 92.0, MCH 30.2, MCHC 32.8, RDW Std Deviation 46.4 H, RDW Coeff of Angelina 13.7, Plt Count 172, MPV 11.6, Immature Gran % (Auto) 2.600 H, Neut % (Auto) 86.8 H, Lymph % (Auto) 3.1 L, [place] % (Auto) 6.1, Eos % (Auto) 1.2, Baso % (Auto) 0.2, Absolute Neuts (auto) 15.9 H, Absolute Lymphs (auto) 0.56 L, Nucleated RBC % 0, Differential Comment COMMENT 03/21/20 15:10: Sodium 130 L, Potassium 4.4, Chloride 99, Carbon Dioxide 22.0, Anion Gap 9, BUN 42 H, Creatinine 2.17 H, Estim Creat Clear Calc 15.86, Est GFR (MDRD) Af Amer 28 L, Est GFR (MDRD) Non-Af 23 L, BUN/Creatinine Ratio 19.4, Glucose 326 H, Calcium 9.7 03/21/20 15:10: Acetone Level NEGATIVE 03/21/20 16:00: Urine Color Yellow, Urine Clarity Cloudy, Urine pH 5.0, Ur Specific [place] 1.020, Urine Protein 100 H, Urine Glucose (UA) 1000 H, Urine Ketones 50 H, Urine Occult Blood 250 H, Urine Nitrite Negative, Urine Bilirubin Negative, Urine Urobilinogen Normal, Ur Leukocyte Esterase 500 H, Urine RBC 5-10 SEEN, Urine WBC 50-100 SEEN, Ur Squamous Epith Cells 0 SEEN, Urine Bacteria 4+, Urine Mucus 0 SEEN 03/21/20 18:39: POC Glucose 274 H 03/21/20 20:23: Lactic Acid 1.7 03/21/20 21:54: POC Glucose 249 H 03/22/20 06:15: WBC 15.4 H, RBC 3.59 L, Hgb 11.0 L, Hct 33.9 L, MCV 94.4, MCH 30.6, MCHC 32.4, RDW Std Deviation 48.2 H, RDW Coeff of Angelina 13.8, Plt Count 132 L, MPV 10.5, Immature Gran % (Auto) 2.100 H, Neut % (Auto) 88.6 H, Lymph % (Auto) 3.3 L, [place] % (Auto) 4.4, Eos % (Auto) 1.3, Baso % (Auto) 0.3, Absolute Neuts (auto) 13.6 H, Absolute Lymphs (auto) 0.50 L, Nucleated RBC % 0, Differential Comment SCANNED 03/22/20 06:15: Sodium 137, Potassium 4.2, Chloride 107, Carbon Dioxide 23.0, Anion Gap 7, BUN 42 H, Creatinine 1.82 H, Estim Creat Clear Calc 18.60, Est GFR (MDRD) Af Amer 34 L, Est GFR (MDRD) Non-Af 28 L, BUN/Creatinine Ratio 23.1 H, Glucose 232 H, Calcium 8.4 L 03/22/20 06:15: Hemoglobin A1c 8.1 H 03/22/20 06:43: POC Glucose 237 H 03/22/20 11:07: POC Glucose 192 H Current Medications Acetaminophen (Tylenol) 650 mg PO Q4H PRN PRN PRN Reason: Pain Score 1-10/Temp > 100.7 F Last Admin: 03/22/20 07:48 Dose: 650 mg Documented by: Al Hydroxide/Mg Hydroxide (Mylanta Ii) 30 ml PO Q6H PRN PRN PRN Reason: Gastric Burning Albuterol Sulfate (Ventolin Aerosols) 2.5 mg INHALATION Q2H PRN PRN PRN Reason: Dyspnea, wheezing Ascorbic Acid (Vitamin C) 500 mg PO BIDCM [facility] Bisacodyl (Dulcolax) 10 mg PO DAILY PRN PRN PRN Reason: Constipation Estradiol (Estrace Vaginal Cream) 1 gm VAGINAL DAILY [facility] Hydralazine HCl (Apresoline Iv) 10 mg IV Q4H PRN PRN PRN Reason: SBP > 160 Sodium Chloride () 1,000 mls @ 150 mls/hr IV .Q6H40M [facility] Last Admin: 03/22/20 09:46 Dose: 150 mls/hr Documented by: Ceftriaxone Sodium 2 gm/ (Sodium Chloride) 50 mls @ 100 mls/hr IV Q24 [facility] Last Infusion: 03/22/20 10:15 Dose: Infused Documented by: Insulin Human Lispro (Humalog Kwikpen (Bkc)) 0 unit SC ACHS [facility]; Protocol Last Admin: 03/22/20 11:45 Dose: Not Given Documented by: Morphine Sulfate () 1 - 2 mg IV Q4H PRN PRN PRN Reason: Pain Score 4-5/10 Morphine Sulfate () 2 - 4 mg IV Q3H PRN PRN PRN Reason: Pain Score 6-10/10 Morphine Sulfate () 2 - 4 mg IV Q3H PRN PRN PRN Reason: Pain Score 6-10/10 Ondansetron HCl (Zofran) 4 mg IV Q8H PRN PRN PRN Reason: Nausea Oxycodone HCl (Oxyir) 5 mg PO Q4H PRN PRN PRN Reason: Pain Score 4-5/10 Polyethylene Glycol (Miralax) 17 gm PO DAILY [facility] Last Admin: 03/22/20 09:46 Dose: Not Given Documented by: Prochlorperazine Edisylate (Compazine Iv) 10 mg IV Q6H PRN PRN PRN Reason: Nausea/Vomiting Psyllium Hydrophilic Mucilloid (Metamucil) 1 packet PO DAILY [facility] Senna/Docusate Sodium (Senokot-S, Syeda-Colace) 2 tablet PO BID PRN PRN PRN Reason: constipation Sodium Chloride () 10 - 40 ml IV UD PRN PRN Reason: SALINE FLUSH Medical Necessity - Tobacco Use Smoking Status: Never smoker Tobacco Use: Non-smoker Assessment/Plan All Active Problems UTI (urinary tract infection) (Acute) SOLO (acute kidney injury) (Acute) Hydronephrosis (Acute) History of kidney stones (Acute) 1. Acute cystitis with probable pyelonephritis-continue IV Rocephin. Urine and blood cultures pending. Urology consulted. Plan to continue current treatment with outpatient follow-up for cystoscopy. 2. Acute kidney injury-improving. Continue IV fluids. Trend BMP. 3. History of kidney stones-CT demonstrates high probability of recently passed right kidney stone. Follow-up with urology as outpatient as noted above. 4. Hypovolemic hyponatremia-resolved. 5. Type 2 diabetes mellitus-hemoglobin A1c 8.1%. Accu-Cheks with sliding scale insulin. ADA diet. 6. Hypertension-hold lisinopril. As needed hydralazine for systolic blood pressure greater than 160. DVT prophylaxis- SCDs This patient was seen by BE Hernandez under the supervision of Dr. Lorenz. <Ricardo Lorenz - Last Filed: 03/22/20 14:19> Subjective: Patient states she has UTI about 2-3 months ago but denies history of recurrent UTI. She has history of kidney stone for which she required urologic intervention about 3 years ago. She also has urge incontinence and sometimes retention of urine. Complain of burning micturition. Denies constipation. CT abdomen reviewed with the patient. Objective: Physical exam General: Alert, Oriented x3, Cooperative HEENT: Atraumatic, PERRLA, EOMI, Normocephalic Oral: No Gingival or Mucosal Lesions/ Ulcerations Neck: Supple, No JVD, Negative Carotid Bruits Lungs: Air entry diminished in bilateral lung bases. No crepitation/rhonchi Cardiovascular: Regular rate, Regular Rhythm, Normal S1, Normal S2, No murmurs Abdomen: Bowel Sounds Present, Soft, Non Tender, Non-Distended : Bilateral renal angle tenderness, right more than left. No suprapubic tenderness. Urine is dark-colored. Extremities: No edema, Capillary Refill Less than 3 Seconds Skin: No rashes, No breakdown Musculoskeletal: No Tenderness to Palpation of Joints or Extremities Neurological: Cranial nerves II-XII grossly intact, Deep Tendon Reflexes 2+/4 and Symmetrical, Neuro grossly intact Psych/Mental Status: Normal Affect, Appropriate. - Physical Exam Vitals/I&O's: Vital Signs Temp Pulse Resp BP Pulse Ox 100.7 F H 93 18 158/68 H 98 03/22/20 07:41 03/22/20 07:41 03/22/20 07:41 03/22/20 07:41 03/22/20 07:41 Oxygen Delivery Method Room Air Weight: 188 lb 11.451 oz Body Mass Index (BMI) 35.6 Finger Stick Blood Glucose 211 Intake and Output for Last 24 Hours 03/20/20 03/21/20 03/22/20 23:59 23:59 23:59 Intake Total 3405.0 / 3555.0 2997.5 / 2997.5 Output Total 650 / 650 Balance 3405.0 / 3555.0 2347.5 / 2347.5 Microbiology Past 72 Hours 03/21/20 16:00 Urine, Clean Catch Urine Culture - Preliminary GNR lactose liquor bridge operator helper Laboratory Results 03/21/20 15:10: WBC 18.3 H, RBC 3.88 L, Hgb 11.7 L, Hct 35.7 L, MCV 92.0, MCH 30.2, MCHC 32.8, RDW Std Deviation 46.4 H, RDW Coeff of Angelina 13.7, Plt Count 172, MPV 11.6, Immature Gran % (Auto) 2.600 H, Neut % (Auto) 86.8 H, Lymph % (Auto) 3.1 L, [place] % (Auto) 6.1, Eos % (Auto) 1.2, Baso % (Auto) 0.2, Absolute Neuts (auto) 15.9 H, Absolute Lymphs (auto) 0.56 L, Nucleated RBC % 0, Differential Comment COMMENT 03/21/20 15:10: Sodium 130 L, Potassium 4.4, Chloride 99, Carbon Dioxide 22.0, Anion Gap 9, BUN 42 H, Creatinine 2.17 H, Estim Creat Clear Calc 15.86, Est GFR (MDRD) Af Amer 28 L, Est GFR (MDRD) Non-Af 23 L, BUN/Creatinine Ratio 19.4, Glucose 326 H, Calcium 9.7 03/21/20 15:10: Acetone Level NEGATIVE 03/21/20 16:00: Urine Color Yellow, Urine Clarity Cloudy, Urine pH 5.0, Ur Specific [place] 1.020, Urine Protein 100 H, Urine Glucose (UA) 1000 H, Urine Ketones 50 H, Urine Occult Blood 250 H, Urine Nitrite Negative, Urine Bilirubin Negative, Urine Urobilinogen Normal, Ur Leukocyte Esterase 500 H, Urine RBC 5-10 SEEN, Urine WBC 50-100 SEEN, Ur Squamous Epith Cells 0 SEEN, Urine Bacteria 4+, Urine Mucus 0 SEEN 03/21/20 18:39: POC Glucose 274 H 03/21/20 20:23: Lactic Acid 1.7 03/21/20 21:54: POC Glucose 249 H 03/22/20 06:15: WBC 15.4 H, RBC 3.59 L, Hgb 11.0 L, Hct 33.9 L, MCV 94.4, MCH 30.6, MCHC 32.4, RDW Std Deviation 48.2 H, RDW Coeff of Angelina 13.8, Plt Count 132 L, MPV 10.5, Immature Gran % (Auto) 2.100 H, Neut % (Auto) 88.6 H, Lymph % (Auto) 3.3 L, [place] % (Auto) 4.4, Eos % (Auto) 1.3, Baso % (Auto) 0.3, Absolute Neuts (auto) 13.6 H, Absolute Lymphs (auto) 0.50 L, Nucleated RBC % 0, Differential Comment SCANNED 03/22/20 06:15: Sodium 137, Potassium 4.2, Chloride 107, Carbon Dioxide 23.0, Anion Gap 7, BUN 42 H, Creatinine 1.82 H, Estim Creat Clear Calc 18.60, Est GFR (MDRD) Af Amer 34 L, Est GFR (MDRD) Non-Af 28 L, BUN/Creatinine Ratio 23.1 H, Glucose 232 H, Calcium 8.4 L 03/22/20 06:15: Hemoglobin A1c 8.1 H 03/22/20 06:43: POC Glucose 237 H 03/22/20 11:07: POC Glucose 192 H Current Medications Acetaminophen (Tylenol) 650 mg PO Q4H PRN PRN PRN Reason: Pain Score 1-10/Temp > 100.7 F Last Admin: 03/22/20 07:48 Dose: 650 mg Documented by: Al Hydroxide/Mg Hydroxide (Mylanta Ii) 30 ml PO Q6H PRN PRN PRN Reason: Gastric Burning Albuterol Sulfate (Ventolin Aerosols) 2.5 mg INHALATION Q2H PRN PRN PRN Reason: Dyspnea, wheezing Ascorbic Acid (Vitamin C) 500 mg PO BIDCM [facility] Bisacodyl (Dulcolax) 10 mg PO DAILY PRN PRN PRN Reason: Constipation Estradiol (Estrace Vaginal Cream) 1 gm VAGINAL DAILY [facility] Hydralazine HCl (Apresoline Iv) 10 mg IV Q4H PRN PRN PRN Reason: SBP > 160 Sodium Chloride () 1,000 mls @ 150 mls/hr IV .Q6H40M [facility] Last Admin: 03/22/20 09:46 Dose: 150 mls/hr Documented by: Ceftriaxone Sodium 2 gm/ (Sodium Chloride) 50 mls @ 100 mls/hr IV Q24 [facility] Last Infusion: 03/22/20 10:15 Dose: Infused Documented by: Insulin Human Lispro (Humalog Kwikpen (Bkc)) 0 unit SC [facility]; Protocol Last Admin: 03/22/20 11:45 Dose: Not Given Documented by: Morphine Sulfate () 1 - 2 mg IV Q4H PRN PRN PRN Reason: Pain Score 4-5/10 Morphine Sulfate () 2 - 4 mg IV Q3H PRN PRN PRN Reason: Pain Score 6-10/10 Morphine Sulfate () 2 - 4 mg IV Q3H PRN PRN PRN Reason: Pain Score 6-10/10 Ondansetron HCl (Zofran) 4 mg IV Q8H PRN PRN PRN Reason: Nausea Oxycodone HCl (Oxyir) 5 mg PO Q4H PRN PRN PRN Reason: Pain Score 4-5/10 Polyethylene Glycol (Miralax) 17 gm PO DAILY [facility] Last Admin: 03/22/20 09:46 Dose: Not Given Documented by: Prochlorperazine Edisylate (Compazine Iv) 10 mg IV Q6H PRN PRN PRN Reason: Nausea/Vomiting Psyllium Hydrophilic Mucilloid (Metamucil) 1 packet PO DAILY [facility] Last Admin: 03/22/20 13:49 Dose: 1 packet Documented by: Senna/Docusate Sodium (Senokot-S, Syeda-Colace) 2 tablet PO BID PRN PRN PRN Reason: constipation Sodium Chloride () 10 - 40 ml IV UD PRN PRN Reason: SALINE FLUSH Assessment/Plan This patient was seen in conjunction with Lilia CAMARENA. I have independently interviewed and examined the patient and reviewed pertinent history, examination findings, laboratory and plan of management. I have reviewed the note and agree with the documented findings with the few additional points. In brief, patient is 80-year-old female with history of kidney stone is admitted with fever, urge incontinence and retention and burning micturition along with bilateral nonspecific vague abdominal pain. CT abdomen shows mild right hydronephrosis and hydroureter and perinephric stranding and mild enlargement of right kidney. No radiopaque stone visualized. Colonic diverticulosis. Urology consult was called and discussed with Dr. Asif. She advised to continue antibiotic and start vaginal estrogen cream, vitamin C and d-mannose. Pharmacy does not have d-mannose. Patient currently does not have constipation but is on oral laxatives. Advised outpatient cystoscopy for further evaluation and prevention of UTI. She has complicated UTI with evidence of right hydroureter and pyelonephritis along with acute kidney injury. Creatinine improving. Hypotonic, hypovolemic hyponatremia: Resolved with IV fluid. I have discussed my assessment with Lilia CAMARENA and orders have been reviewed. Clinical Impression(s) from Imaging Studies Chest X-Ray 03/21/20 15:45 IMPRESSION: Normal x-ray examination of the chest. Electronically Signed: Hermes Whitehead MD at 16:06 EDT Tel , Service support , Abdomen/Pelvis CT 03/21/20 19:53 IMPRESSION: Mild right hydronephrosis and hydroureter and perinephric stranding as well as mild enlargement of the right kidney is present. No visualized radiopaque stone of the kidney or ureter or bladder. High probability a recently passed right kidney stone obscured by the fluid in the bladder. Colonic diverticulosis. Electronically Signed: Andrew Powers MD at 21:07 EDT , Service support , Inpatient E&M: [id number] Subs Hosp L3
[2020-03-22] MEDS: Psyllium 1 PACKET PO (13:49)
--- NOTE | 2020-03-22 14:18 | CHAPLAIN ---
Type of Pastoral Visit _x__ Initial Visit ___ Follow-up Visit ___ On-call Visit ___ General Patient Visit ___ Spiritual Assessment ___ Family Conference ___ Bereavement ___ Rapid Response ___ Code Blue ___ Other (describe below) Pastoral Care Referral From _x__ Patient _x__ Family ___ Nurse ___ Physician ___ Launch Leader ___ Elastic Attacher Chainstitch ___ Other (describe below) Sacrament/Intervention _x__ Active listening ___ Anointing ___ Mandaeism ___ Bereavement ___ Communion _x__ Tammy exploration ___ _x__ Life review _x__ Prayer ___ Reconciliation ___ Sacrament of Sick _x__ Supportive presence ___ Wedding ___ Other (describe below) Pastoral Comments
[2020-03-22] MEDS: 0.9% Normal Saline 1,000 ML 75 ML IV ×2 (14:35→22:05)
[2020-03-22 14:40] VITALS: BP 165/64; PULSE 89; RESP 18; TEMP 37.2; O2SAT 98
[2020-03-22] MEDS: Ondansetron 4 MG/2 ML Vial IV (15:39)
[2020-03-22] MEDS: 0.9% Saline Lock 10 ML Syringe IV ×2 (15:39→22:21)
[2020-03-22] MEDS: Morphine 2 MG/ML Syringe IV (15:40)
[2020-03-22 16:20] LABS: Bedside Glucose 163 mg/dL (70-110)
[2020-03-22] MEDS: Ascorbic Acid 500 MG Tablet PO (17:42)
[2020-03-22 20:30] VITALS: BP 160/80; PULSE 92; RESP 24; TEMP 38.2; O2SAT 93
--- NOTE | 2020-03-22 22:00 | NURSING ---
pt has a moist cough, states she also feels like she is sob, lungs with crackles to the bases with exp wheezing, temp 100.8, resp tachy. dr. aguilar notified per the charge histotechnologist, bryanna ordered and ivf dc'd. tylenol given for her temp.
[2020-03-22] MEDS: Furosemide 20 MG/2 ML VIAL IV (22:21)
[2020-03-22 22:30] VITALS: BP 130/62; PULSE 84; RESP 20; TEMP 37.3; O2SAT 100
[2020-03-23 00:11] LABS: Bedside Glucose 143 mg/dL (70-110)
[2020-03-23 02:56] VITALS: BP 143/71; PULSE 76; RESP 20; TEMP 37; O2SAT 98
[2020-03-23 06:16] LABS: Hematocrit 31.9 % (37-47); Mean Corp Hgb Conc 31.3 g/dL (32-36); Mean Corpuscular Hgb 29.2 pg (27.0-32.0); Mean Corpuscular Volume 93.3 fL (81-99); Platelet Count 144 K/mm3 (150-450); RBC Distribution Width CV 14.4 % (11.6-14.6); RBC Distribution Width SD 49.5 fl (35.1-43.9); Red Blood Count 3.42 M/mm3 (4.2-5.4); White Blood Count 14.2 K/mm3 (4.4-11.0)
[2020-03-23 06:33] LABS: Anion Gap 5 (5-15); BUN 37 mg/dL (7-18); Calcium,Total 8.3 mg/dL (8.5-10.1); Chloride 110 mmol/L (98-107); Creatinine, Serum 1.54 mg/dL (0.55-1.02); EST Glomerular Filtration Rate 34 mL/min (>60); Est Glom Filt Rate - Afr Amer 42 mL/min (>60); Estimated Creatinine Clearance 21.99 ml/min; Glucose 94 mg/dL (74-106); Potassium 3.3 mmol/L (3.5-5.1); Sodium Level 139 mmol/L (136-145)
[2020-03-23 07:21] LABS: Bedside Glucose 85 mg/dL (70-110)
[2020-03-23 10:40] VITALS: BP 151/70; PULSE 90; RESP 18; TEMP 36.9; O2SAT 96
[2020-03-23] MEDS: Bisacodyl 10 MG Suppository RECTAL (10:54)
[2020-03-23] MEDS: 0.9% Saline Lock 10 ML Syringe IV ×2 (10:58→11:03)
[2020-03-23] MEDS: Furosemide 40 MG/4 ML Vial IV (10:58)
[2020-03-23] MEDS: Psyllium 1 PACKET PO (11:02)
[2020-03-23] MEDS: Ascorbic Acid 500 MG Tablet PO (11:03)
[2020-03-23] MEDS: guaiFENesin 1,200 MG Tablet 1200 MG PO ×2 (11:26→21:58)
[2020-03-23] MEDS: Senna/Docusate Sodium 1 Tablet 2 TABLET PO (11:27)
[2020-03-23] MEDS: Magnesium Citrate 300 ML 150 ML PO (11:32)
[2020-03-23 11:46] LABS: Bedside Glucose 109 mg/dL (70-110)
--- NOTE | 2020-03-23 13:42 | PCM.PROGNOTE ---
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 Complains of constipation. Patient reports ongoing left-sided abdominal pain following meals which she states is been ongoing for the past few months. Denies fever, chills. Denies further lower back pain. Patient complained of shortness of breath overnight and was noted to have crackles in her lung bases. Improved following IV Lasix. - Physical Exam Vitals/I&O's: Vital Signs Temp Pulse Resp BP Pulse Ox 98.6 F 76 20 H 143/71 H 98 03/23/20 02:56 03/23/20 02:56 03/23/20 02:56 03/23/20 02:56 03/23/20 02:56 Oxygen Flow Rate (L/min) 2 Oxygen Delivery Method Room Air Weight: 188 lb 11.451 oz Body Mass Index (BMI) 35.6 Finger Stick Blood Glucose 211 Intake and Output for Last 24 Hours 03/21/20 03/22/20 03/23/20 23:59 23:59 23:59 Intake Total 3405.0 / 3555.0 5491.25 / 5641.25 200 / 200 Output Total 650 / 650 400 / 400 Balance 3405.0 / 3555.0 4841.25 / 4991.25 -200 / -200 General: Alert, Oriented x3, Cooperative HEENT: Atraumatic, PERRLA, EOMI, Normocephalic Neck: Supple, No JVD, Negative Carotid Bruits Lungs: Clear to auscultation, Diminished Cardiovascular: Regular rate, No murmurs Abdomen: Bowel Sounds Present, Soft, Non Tender, Distended, Obese Extremities: No clubbing, No cyanosis, No edema, Capillary Refill Less than 3 Seconds Skin: No rashes, No breakdown Musculoskeletal: No Tenderness to Palpation of Joints or Extremities Neurological: Cranial nerves II-XII grossly intact, Neuro grossly intact Psych/Mental Status: Normal Affect, Appropriate Microbiology Past 72 Hours 03/21/20 16:00 Urine, Clean Catch Urine Culture - Final Escherichia coli Laboratory Results 03/22/20 16:15: POC Glucose 163 H 03/22/20 21:20: POC Glucose 143 H 03/23/20 05:50: WBC 14.2 H, RBC 3.42 L, Hgb 10.0 L, Hct 31.9 L, MCV 93.3, MCH 29.2, MCHC 31.3 L, RDW Std Deviation 49.5 H, RDW Coeff of Angelina 14.4, Plt Count 144 L, MPV 11.0 03/23/20 05:50: Sodium 139, Potassium 3.3 L, Chloride 110 H, Carbon Dioxide 24.0, Anion Gap 5, BUN 37 H, Creatinine 1.54 H, Estim Creat Clear Calc 21.99, Est GFR (MDRD) Af Amer 42 L, Est GFR (MDRD) Non-Af 34 L, BUN/Creatinine Ratio 24.0 H, Glucose 94, Calcium 8.3 L 03/23/20 06:55: POC Glucose 85 03/23/20 11:39: POC Glucose 109 Current Medications Acetaminophen (Tylenol) 650 mg PO Q4H PRN PRN PRN Reason: Pain Score 1-10/Temp > 100.7 F Last Admin: 03/22/20 21:02 Dose: 650 mg Documented by: Al Hydroxide/Mg Hydroxide (Mylanta Ii) 30 ml PO Q6H PRN PRN PRN Reason: Gastric Burning Albuterol Sulfate (Ventolin Aerosols) 2.5 mg INHALATION Q2H PRN PRN PRN Reason: Dyspnea, wheezing [facility] Last Admin: 03/23/20 11:03 Dose: 500 mg Documented by: Bisacodyl (Dulcolax) 10 mg PO DAILY PRN PRN PRN Reason: Constipation Estradiol (Estrace Vaginal Cream) 1 gm VAGINAL DAILY [facility] Last Admin: 03/22/20 14:37 Dose: 1 gm Documented by: Guaifenesin (Mucinex) 1,200 mg PO BID [facility] Last Admin: 03/23/20 11:26 Dose: 1,200 mg Documented by: Hydralazine HCl (Apresoline Iv) 10 mg IV Q4H PRN PRN PRN Reason: SBP > 160 Ceftriaxone Sodium 2 gm/ (Sodium Chloride) 50 mls @ 100 mls/hr IV Q24 [facility] Last Infusion: 03/23/20 12:43 Dose: Infused Documented by: Ibuprofen (Motrin) 400 mg PO Q8H PRN PRN PRN Reason: MODERATE ARTHRITIS PAIN Insulin Human Lispro (Humalog Kwikpen (Bkc)) 0 unit SC [facility]; Protocol Last Admin: 03/23/20 11:40 Dose: Not Given Documented by: Morphine Sulfate () 1 - 2 mg IV Q4H PRN PRN PRN Reason: Pain Score 4-5/10 Last Admin: 03/22/20 15:40 Dose: 2 mg Documented by: Morphine Sulfate () 2 - 4 mg IV Q3H PRN PRN PRN Reason: Pain Score 6-10/10 Morphine Sulfate () 2 - 4 mg IV Q3H PRN PRN PRN Reason: Pain Score 6-10/10 Ondansetron HCl (Zofran) 4 mg IV Q8H PRN PRN PRN Reason: Nausea Last Admin: 03/22/20 15:39 Dose: 4 mg Documented by: Oxycodone HCl (Oxyir) 5 mg PO Q4H PRN PRN PRN Reason: Pain Score 4-5/10 Polyethylene Glycol (Miralax) 17 gm PO DAILY [facility] Last Admin: 03/23/20 11:06 Dose: Not Given Documented by: Prochlorperazine Edisylate (Compazine Iv) 10 mg IV Q6H PRN PRN PRN Reason: Nausea/Vomiting Psyllium Hydrophilic Mucilloid (Metamucil) 1 packet PO DAILY [facility] Last Admin: 03/23/20 11:02 Dose: 1 packet Documented by: Senna/Docusate Sodium (Senokot-S, Syeda-Colace) 2 tablet PO BID [facility] Last Admin: 03/23/20 11:27 Dose: 2 tablet Documented by: Sodium Chloride () 10 - 40 ml IV UD PRN PRN Reason: SALINE FLUSH Last Admin: 03/23/20 11:03 Dose: 10 ml Documented by: Medical Necessity - Tobacco Use Smoking Status: Never smoker Tobacco Use: Non-smoker Assessment/Plan All Active Problems UTI (urinary tract infection) (Acute) SOLO (acute kidney injury) (Acute) Hydronephrosis (Acute) History of kidney stones (Acute) 1. Acute E. coli cystitis with probable pyelonephritis-continue IV Rocephin. Urine culture growing E. coli. Blood cultures pending. Urology consulted. Plan to continue current treatment with outpatient follow-up for cystoscopy. Plan for transition to oral antibiotics tomorrow. 2. Acute kidney injury-improving. IV fluids discontinued due to shortness of breath, suspected fluid overload. Trend BMP. 3. History of kidney stones-CT demonstrates high probability of recently passed right kidney stone. Follow-up with urology as outpatient as noted above. 4. Hypovolemic hyponatremia-resolved. 5. Type 2 diabetes mellitus-hemoglobin A1c 8.1%. Accu-Cheks with sliding scale insulin. ADA diet. 6. Hypertension-hold lisinopril. As needed hydralazine for systolic blood pressure greater than 160. 7. Constipation-initiate aggressive bowel regimen. DVT prophylaxis- SCDs This patient was seen by BE Hernandez under the supervision of Dr. Lorenz. <Ricardo Lorenz - Last Filed: 03/23/20 14:03> Objective: Patient complains of mild left renal angle and left abdominal pain. Patient was also short of breath and was found fluid overload with pulmonary congestion and was given Lasix 20 mg IV. Patient still feels bloated, constipated. Was seen and examined. Discussed with urologist. Physical exam General: Alert, Oriented x3, Cooperative HEENT: Atraumatic, PERRLA, EOMI, Normocephalic Oral: No Gingival or Mucosal Lesions/ Ulcerations Neck: Supple, No JVD, Negative Carotid Bruits Lungs: Air entry diminished in bilateral lung bases. intermittent fine crackles present on right lung base Cardiovascular: Regular rate, Regular Rhythm, Normal S1, Normal S2, No murmurs Abdomen: Mild tenderness on left renal angle and left anterior abdomen. No palpable mass. Bowel Sounds Present, Soft, Non Tender, Non-Distended : Left renal angle tenderness. No suprapubic tenderness. Extremities: No edema, Capillary Refill Less than 3 Seconds Skin: No rashes, No breakdown Musculoskeletal: No Tenderness to Palpation of Joints or Extremities Neurological: Cranial nerves II-XII grossly intact, Deep Tendon Reflexes 2+/4 and Symmetrical, Neuro grossly intact Psych/Mental Status: Normal Affect, Appropriate. - Physical Exam Vitals/I&O's: Vital Signs Temp Pulse Resp BP Pulse Ox 98.4 F 90 18 151/70 H 96 03/23/20 10:40 03/23/20 10:40 03/23/20 10:40 03/23/20 10:40 03/23/20 10:40 Oxygen Flow Rate (L/min) 2 Oxygen Delivery Method Room Air Weight: 188 lb 11.451 oz Body Mass Index (BMI) 35.6 Finger Stick Blood Glucose 211 Intake and Output for Last 24 Hours 03/21/20 03/22/20 03/23/20 23:59 23:59 23:59 Intake Total 3405.0 / 3555.0 5491.25 / 5641.25 200 / 200 Output Total 650 / 650 400 / 400 Balance 3405.0 / 3555.0 4841.25 / 4991.25 -200 / -200 Microbiology Past 72 Hours 03/21/20 16:00 Urine, Clean Catch Urine Culture - Final Escherichia coli Laboratory Results 03/22/20 16:15: POC Glucose 163 H 03/22/20 21:20: POC Glucose 143 H 03/23/20 05:50: WBC 14.2 H, RBC 3.42 L, Hgb 10.0 L, Hct 31.9 L, MCV 93.3, MCH 29.2, MCHC 31.3 L, RDW Std Deviation 49.5 H, RDW Coeff of Angelina 14.4, Plt Count 144 L, MPV 11.0 03/23/20 05:50: Sodium 139, Potassium 3.3 L, Chloride 110 H, Carbon Dioxide 24.0, Anion Gap 5, BUN 37 H, Creatinine 1.54 H, Estim Creat Clear Calc 21.99, Est GFR (MDRD) Af Amer 42 L, Est GFR (MDRD) Non-Af 34 L, BUN/Creatinine Ratio 24.0 H, Glucose 94, Calcium 8.3 L 03/23/20 06:55: POC Glucose 85 03/23/20 11:39: POC Glucose 109 Current Medications Acetaminophen (Tylenol) 650 mg PO Q4H PRN PRN PRN Reason: Pain Score 1-10/Temp > 100.7 F Last Admin: 03/22/20 21:02 Dose: 650 mg Documented by: Al Hydroxide/Mg Hydroxide (Mylanta Ii) 30 ml PO Q6H PRN PRN PRN Reason: Gastric Burning Albuterol Sulfate (Ventolin Aerosols) 2.5 mg INHALATION Q2H PRN PRN PRN Reason: Dyspnea, wheezing Asc[facility] Last Admin: 03/23/20 11:03 Dose: 500 mg Documented by: Bisacodyl (Dulcolax) 10 mg PO DAILY PRN PRN PRN Reason: Constipation Estradiol (Estrace Vaginal Cream) 1 gm VAGINAL DAILY [facility] Last Admin: 03/22/20 14:37 Dose: 1 gm Documented by: Guaifenesin (Mucinex) 1,200 mg PO BID [facility] Last Admin: 03/23/20 11:26 Dose: 1,200 mg Documented by: Hydralazine HCl (Apresoline Iv) 10 mg IV Q4H PRN PRN PRN Reason: SBP > 160 Ceftriaxone Sodium 2 gm/ (Sodium Chloride) 50 mls @ 100 mls/hr IV Q24 [facility] Last Infusion: 03/23/20 12:43 Dose: Infused Documented by: Ibuprofen (Motrin) 400 mg PO Q8H PRN PRN PRN Reason: MODERATE ARTHRITIS PAIN Last Admin: 03/23/20 13:54 Dose: 400 mg Documented by: Insulin Human Lispro (Humalog Kwikpen (Bkc)) 0 unit SC [facility]; Protocol Last Admin: 03/23/20 11:40 Dose: Not Given Documented by: Morphine Sulfate () 1 - 2 mg IV Q4H PRN PRN PRN Reason: Pain Score 4-5/10 Last Admin: 03/22/20 15:40 Dose: 2 mg Documented by: Morphine Sulfate () 2 - 4 mg IV Q3H PRN PRN PRN Reason: Pain Score 6-10/10 Morphine Sulfate () 2 - 4 mg IV Q3H PRN PRN PRN Reason: Pain Score 6-10/10 Ondansetron HCl (Zofran) 4 mg IV Q8H PRN PRN PRN Reason: Nausea Last Admin: 03/22/20 15:39 Dose: 4 mg Documented by: Oxycodone HCl (Oxyir) 5 mg PO Q4H PRN PRN PRN Reason: Pain Score 4-5/10 Polyethylene Glycol (Miralax) 17 gm PO DAILY [facility] Last Admin: 03/23/20 11:06 Dose: Not Given Documented by: Prochlorperazine Edisylate (Compazine Iv) 10 mg IV Q6H PRN PRN PRN Reason: Nausea/Vomiting Psyllium Hydrophilic Mucilloid (Metamucil) 1 packet PO DAILY [facility] Last Admin: 03/23/20 11:02 Dose: 1 packet Documented by: Senna/Docusate Sodium (Senokot-S, Syeda-Colace) 2 tablet PO BID [facility] Last Admin: 03/23/20 11:27 Dose: 2 tablet Documented by: Sodium Chloride () 10 - 40 ml IV UD PRN PRN Reason: SALINE FLUSH Last Admin: 03/23/20 11:03 Dose: 10 ml Documented by: Assessment/Plan This patient was seen in conjunction with Lilia CAMARENA. I have independently interviewed and examined the patient and reviewed pertinent history, examination findings, laboratory and plan of management. I have reviewed the note and agree with the documented findings with the few additional points. In brief, patient is 80-year-old female with history of kidney stone is admitted with fever, urge incontinence and retention and burning micturition along with bilateral nonspecific vague abdominal pain. CT abdomen shows mild right hydronephrosis and hydroureter and perinephric stranding and mild enlargement of right kidney. No radiopaque stone visualized. Colonic diverticulosis. Urology consult was called and discussed with Dr. Asif. She advised to continue antibiotic and start vaginal estrogen cream, vitamin C and d-mannose. Pharmacy does not have d-mannose. Patient currently does not have constipation but is on oral laxatives. Advised outpatient cystoscopy for further evaluation and prevention of UTI. She has complicated UTI with evidence of right hydroureter and pyelonephritis along with acute kidney injury. Creatinine improving. 03/23: Patient seen and examined with Dr. Salas. We agreed that right hydroureter was not significant and patient improving on IV fluid antibiotic therefore no urology intervention at present. There is outpatient plan for ultrasound kidneys and bladder in 4 to 6-week and follow-up with Dr. Salas. Patient also has fluid overload with pulmonary congestion. Lasix 40 mg IV given in the morning, along with a stool softener and magnesium citrate. Hypotonic, hypovolemic hyponatremia: Resolved with IV fluid. I have discussed my assessment with Lilia CAMARENA and orders have been reviewed. Clinical Impression(s) from Imaging Studies Chest X-Ray 03/21/20 15:45 IMPRESSION: Normal x-ray examination of the chest. Electronically Signed: Hermes Whitehead MD at 16:06 EDT Tel , Service support , Abdomen/Pelvis CT 03/21/20 19:53 IMPRESSION: Mild right hydronephrosis and hydroureter and perinephric stranding as well as mild enlargement of the right kidney is present. No visualized radiopaque stone of the kidney or ureter or bladder. High probability a recently passed right kidney stone obscured by the fluid in the bladder. Colonic diverticulosis. Inpatient E&M: 45072 Subs Hosp L2
[2020-03-23] MEDS: Ibuprofen 400 MG Tablet PO ×2 (13:54→21:58)
[2020-03-23 16:01] VITALS: BP 112/58; PULSE 91; RESP 18; TEMP 37.7; O2SAT 96
--- NOTE | 2020-03-23 16:35 | US_ITS ---
STUDY: RENAL ULTRASOUND - COMPLETE REASON FOR EXAM: Female, 80 years old. pyelonephritis TECHNIQUE: Ultrasound evaluation of the kidneys was performed with real-time and static elam-scale imaging. COMPARISON: None. FINDINGS: RIGHT KIDNEY: Normal location of the right kidney, which is normal in size. The right kidney measures 11.5 x 5.3 x 5.8 cm. There is a normal cortex of the right kidney. The renal cortex measures 1.6 cm. There is no right renal mass or cyst. There are no right renal calculi. There is no right hydronephrosis. DISTAL RIGHT URETER: There is non-visualization of the distal right ureter. There is no demonstrated right ureterovesical junction calculus. There is no demonstrated right ureteral jet. LEFT KIDNEY: Normal location of the left kidney, which is normal in size. The left kidney measures 11.6 x 4.6 x 5.6 cm. There is a normal cortex of the left kidney. The renal cortex measures 2.0 cm. There is no left renal mass or cyst. There are no left renal calculi. There is no left hydronephrosis. DISTAL LEFT URETER: There is non-visualization of the distal left ureter. There is no demonstrated left ureterovesical junction calculus. There is no demonstrated left ureteral jet. BLADDER: The distended urinary bladder has a volume of 11 ml. There is a normal wall thickness of the distended urinary bladder. Bladder wall thickness is 5 mm. There is no demonstrated mass within the urinary bladder. There are no demonstrated bladder calculi. US/Kidney and Bladder IMPRESSION: Normal ultrasound of the kidneys and urinary bladder. Electronically Signed: Rafael Xavier MD at 19:51 EDT , Service support ,
--- NOTE | 2020-03-23 16:38 | NURSING ---
Dr. Salas here, saw pt, talked with this nurse. updated on temp of 99.8 and rest of recent vitals. Also aware that pt is c/o pain to rt flank area and Lt middle of back/lower area radiating into abd. I'm miserable. Pt reports pain is worse after she gets done eating. No appetite.
--- NOTE | 2020-03-23 16:50 | PCM.PN.GU ---
Physical Exam Subjective: Reports feeling little better than when came in. Voiding without difficulty. Still with some low back pain, more on the left.Not eating much. - Physical Exam Vital Signs Temp 99.8 F H 03/23/20 16:01 Pulse 91 03/23/20 16:01 Resp 18 03/23/20 16:01 BP 112/58 L 03/23/20 16:01 Pulse Ox 96 03/23/20 16:01 Intake & Output 03/21/20 03/22/20 03/23/20 23:59 23:59 23:59 Intake Total 3405.0 / 3555.0 5491.25 / 5641.25 440 / 440 Output Total 650 / 650 400 / 400 Balance 3405.0 / 3555.0 4841.25 / 4991.25 40 / 40 Weight: 85.6 kg 85.6 kg Intake: Oral 2110 / 2260 390 / 390 Intake, IV Amount 3405.0 / 3405.0 3381.25 / 3381.25 50 / 50 0.9% Normal Saline 1,000 ML @ 355.0 / 355.0 3331.25 / 3331.25 75 mls/hr IV .[id number] [facility] Rx#: [id number] 0.9% Normal Saline 1,000 ML @ 1000 / 1000 999 mls/hr IV .Q1H1M [facility] Rx#: [id number] 0.9% Normal Saline 1,000 ML @ 1000 / 1000 999 mls/hr IV .Q1H1M [facility] Rx#: [id number] 0.9% Normal Saline 500 ML @ 500 / 500 1000 mls/hr IV .Q30M [facility] Rx#: [id number] 0.9% Normal Saline 500 ML @ 999 500 / 500 mls/hr IV .Q31M [facility] Rx#: [id number] Ceftriaxone 2 GM In 0.9% Normal 50 / 50 50 / 50 Saline 50 ML @ 100 mls/hr IV Q24 [facility] Rx#:[id number] Rocephin 1 gm In 50 ml @ 100 50 / 50 mls/hr IV X1 [facility] Rx#:[id number] Output: Urine 650 / 650 400 / 400 Other: Number of Voids 3 2 General: Alert, Oriented x3, Cooperative HEENT: Atraumatic, Normocephalic Oral: Moist Mucosa Neck: Supple, Trachea Midline Cardiovascular: Regular rate Abdomen: Soft, Non Tender, Non-Distended, - - left low back tenderness to palpation Rectal: Exam deferred Skin: No rashes Musculoskeletal: No Muscle Wasting Neurological: Cranial nerves II-XII grossly intact Psych/Mental Status: Normal Affect Microbiology Past 72 Hours 03/21/20 16:00 Urine Culture - Final Urine, Clean Catch Escherichia coli Laboratory Tests Past 24 Hrs 03/23/20 03/23/20 05:50 05:50 WBC 14.2 H RBC 3.42 L Hgb 10.0 L Hct 31.9 L MCV 93.3 MCH 29.2 MCHC 31.3 L RDW Std Deviation 49.5 H RDW Coeff of Angelina 14.4 Plt Count 144 L MPV 11.0 Sodium 139 Potassium 3.3 L Chloride 110 H Carbon Dioxide 24.0 Anion Gap 5 BUN 37 H Creatinine 1.54 H Estim Creat Clear Calc 21.99 Est GFR (MDRD) Af Amer 42 L Est GFR (MDRD) Non-Af 34 L BUN/Creatinine Ratio 24.0 H Glucose 94 Calcium 8.3 L Medical Necessity - Tobacco Use Smoking Status: Never smoker Tobacco Use: Non-smoker Assessment/Plan All Active Problems UTI (urinary tract infection) (Acute) SOLO (acute kidney injury) (Acute) Hydronephrosis (Acute) History of kidney stones (Acute) Given continued pain, temp above 99, will check renal ultrasound prior to discharge continue antibiotics and supportive care for pyelonephritis, pansensitive Ecoli growing will need cystoscopy etc as outpatient will follow with you.
[2020-03-23 17:35] LABS: Bedside Glucose 100 mg/dL (70-110)
--- NOTE | 2020-03-23 18:40 | RAD_ITS ---
STUDY: X-RAY - ABDOMEN/PELVIS REASON FOR EXAM: Female, 80 years old. abdomen pain, bloating, constipation TECHNIQUE: Two AP supine views of the abdomen and pelvis. COMPARISON: Prior study of 07/20/2017 FINDINGS: Normal visualized lung bases. There is an unremarkable bowel gas pattern. There is no demonstrated free abdominal air. The visualized liver, spleen and kidneys are grossly normal in size and morphology. There are vascular calcifications of the left upper quadrant of the abdomen. There are diffuse degenerative changes of the visualized thoracolumbar spine. RAD/Abdomen Single View (Portable) IMPRESSION: No evidence of ileus or obstruction. Vascular calcifications are seen in the left upper quadrant of the abdomen. Electronically Signed: Rafael Xavier MD at 19:10 EDT , Service support ,
[2020-03-23 20:21] VITALS: BP 149/60; PULSE 83; RESP 16; TEMP 37.1; O2SAT 96
[2020-03-23 22:05] LABS: Bedside Glucose 118 mg/dL (70-110)
[2020-03-24 02:08] VITALS: BP 145/70; PULSE 81; RESP 16; TEMP 36.9; O2SAT 97
[2020-03-24 06:45] LABS: Bedside Glucose 126 mg/dL (70-110)
[2020-03-24 07:13] LABS: Hematocrit 31.4 % (37-47); Hemoglobin 9.9 g/dL (12.0-15.0); Mean Corp Hgb Conc 31.5 g/dL (32-36); Mean Corpuscular Hgb 29.3 pg (27.0-32.0); Mean Corpuscular Volume 92.9 fL (81-99); Mean Platelet Vol. 11.5 fl (6.2-12.0); Platelet Count 168 K/mm3 (150-450); RBC Distribution Width CV 14.5 % (11.6-14.6); RBC Distribution Width SD 49.1 fl (35.1-43.9); Red Blood Count 3.38 M/mm3 (4.2-5.4); White Blood Count 10.2 K/mm3 (4.4-11.0)
[2020-03-24 08:07] LABS: Anion Gap 9 (5-15); BUN 40 mg/dL (7-18); BUN/Creat Ratio 25.3 RATIO (10-20); Calcium,Total 8.5 mg/dL (8.5-10.1); Chloride 107 mmol/L (98-107); Creatinine, Serum 1.58 mg/dL (0.55-1.02); EST Glomerular Filtration Rate 33 mL/min (>60); Est Glom Filt Rate - Afr Amer 41 mL/min (>60); Estimated Creatinine Clearance 21.43 ml/min; Glucose 116 mg/dL (74-106); Potassium 3.5 mmol/L (3.5-5.1); Sodium Level 139 mmol/L (136-145)
[2020-03-24 10:33] VITALS: BP 156/77; PULSE 85; RESP 18; TEMP 37.6; O2SAT 97
[2020-03-24] MEDS: Ascorbic Acid 500 MG Tablet PO (10:35)
[2020-03-24] MEDS: guaiFENesin 1,200 MG Tablet 1200 MG PO (10:36)
[2020-03-24] MEDS: 0.9% Saline Lock 10 ML Syringe IV (10:42)
--- NOTE | 2020-03-24 11:38 | DCINST_ITS ---
- Discharge Diagnoses Current Active Problems: Current Active and Chronic Problems HTN (hypertension) (Chronic) Diabetes (Chronic) UTI (urinary tract infection) (Acute) SOLO (acute kidney injury) (Acute) Hyponatremia (Chronic) Hydronephrosis (Acute) History of kidney stones (Acute) You will use the following diet at home:: Calorie/Carbohydrate Controlled (specify 1200, 1400, etc) Discharge Activity: Return to Normal Activity Call your doctor if you observe: Shortness of breath, Dizziness, Fainting spells, Chest pain Allergies/Adverse Reactions: Allergies diphenhydramine HCl [From Benadryl] Adverse Reaction (Verified 03/21/20 14:45) Other CAN'T SLEEP SLEEPING PILL Adverse Reaction (Uncoded 03/21/20 14:45) Other CAUSES ANXIETY, NERVOUS FEELING Medications to take at Discharge Fish Oil/Dha/Epa [Fish Oil 1,200 mg Fish Oil] 1 each PO BID 11/06/15 Glimepiride [Amaryl] 4 mg PO BID 11/06/15 Lisinopril [Zestril] 5 mg PO DAILY 11/06/15 Cholecalciferol (Vitamin D3) [Vitamin D3] 5,000 unit PO DAILY 03/21/20 Garlic 1,000 mg PO DAILY 03/21/20 Turmeric Root Extract [Turmeric] 500 mg PO DAILY 03/21/20 Ubidecarenone [Co Q-10] 100 mg PO DAILY 03/21/20 Pindolol [Pindolol (Beta Jacqueline)] 5 mg PO DAILY 03/22/20 Ascorbic Acid [Vitamin C] 500 mg PO BIDCM #60 tab 03/24/20 Cefadroxil Hydrate [Duricef] 500 mg PO DAILY #5 cap 03/24/20 Estradiol [Estrace] 1 gm VAGINAL DAILY #1 bottle 03/24/20 Isosorbide Mononitrate [Monoket] 20 mg PO BID #60 tab 03/24/20 The following prescriptions were given: Cefadroxil Hydrate [Duricef] 500 mg PO DAILY #5 cap Transmission Status: Pending to [facility] Estradiol [Estrace] 1 gm VAGINAL DAILY #1 bottle Transmission Status: Pending to [facility] Isosorbide Mononitrate [Monoket] 20 mg PO BID #60 tab Transmission Status: Received by [id number] Ascorbic Acid [Vitamin C] 500 mg PO BIDCM #60 tab Transmission Status: Pending to [facility] Primary Care Physician: Sukhjinder Garcia MD [Primary Care Provider] - Please follow up with your Primary Care Physician in: 1 Week Test Results: Test results from this visit will be discussed in further detail at your follow- up appointment, if applicable. Please Follow Up With: Agustina Salas MD When: 1 Week Please Follow Up With: Celso Anderson MD - Vascular surgery When: 2 Weeks Proposed Discharge Date: 03/24/20
--- NOTE | 2020-03-24 11:40 | DS.PCM_ITS ---
<Lilia Parnell [employer] - Last Filed: 03/24/20 12:07> Discharge Date and Diagnosis Date of Admission: 03/21/20 Date of Discharge: 03/24/20 - Primary Discharge Diagnosis Acute Problems: Active Problems 1. Acute E. coli cystitis with pyelonephritis 2. Acute kidney injury 3. History of kidney stones 4. Hypovolemic hyponatremia 5. Type 2 diabetes mellitus 6. Hypertension 7. Constipation 8. Suspected mesenteric ischemia - Secondary Discharge Diagnosis Chronic Problems: Chronic Problems HTN (hypertension) (Chronic) Diabetes (Chronic) Hyponatremia (Chronic) Hospital Course and Treatment Imaging Results: Diagnostic Data Chest X-Ray 03/21/20 15:45 IMPRESSION: Normal x-ray examination of the chest. Electronically Signed: Hermes Whitehead MD at 16:06 EDT Tel , Service support , Abdomen/Pelvis CT 03/21/20 19:53 IMPRESSION: Mild right hydronephrosis and hydroureter and perinephric stranding as well as mild enlargement of the right kidney is present. No visualized radiopaque stone of the kidney or ureter or bladder. High probability a recently passed right kidney stone obscured by the fluid in the bladder. Colonic diverticulosis. Electronically Signed: Andrwe Powers MD at 21:07 EDT , Service support , Renal Ultrasound 03/23/20 16:35 IMPRESSION: Normal ultrasound of the kidneys and urinary bladder. Electronically Signed: Rafael Xavier MD at 19:51 EDT , Service support , KUB X-Ray 03/23/20 18:40 IMPRESSION: No evidence of ileus or obstruction. Vascular calcifications are seen in the left upper quadrant of the abdomen. Electronically Signed: Rafael Xavier MD at 19:10 EDT , Service support , Dr. Salas- Urology Operations: None Procedures: None Summary of Care Provided: The patient is a 80 year old F admitted 03/21/2020 due to concern for high blood glucose. 1. Acute complicated E. coli cystitis with pyelonephritis-IV Rocephin during admission. Urine culture growing E. coli. Blood cultures with no growth thus far. Urology consulted. Renal ultrasound unremarkable. Plan to continue current treatment with outpatient follow-up for cystoscopy. Duricef renally dosed 500 mg daily for 5 days at discharge. Follow-up with urology in 1 week. Per urology recommendations, initiated on vaginal estrogen, d-mannose and vitamin C. 2. Acute kidney injury-improved. IV fluids discontinued due to shortness of breath, suspected fluid overload. Recommend repeat BMP in 1 week by primary care provider. 3. History of kidney stones-CT demonstrates high probability of recently passed right kidney stone. Follow-up with urology as outpatient as noted above. 4. Hypovolemic hyponatremia-resolved. 5. Type 2 diabetes mellitus-hemoglobin A1c 8.1%. Continue home oral regimen with further outpatient adjustment. 6. Hypertension-hold lisinopril. As needed hydralazine for systolic blood pressure greater than 160. 7. Constipation-resolved following aggressive bowel regimen. 8. Suspected mesenteric ischemia-patient reports for the past 6 months she has had left-sided abdominal pain which is worse following meals. CT of abdomen and KUB unremarkable with the exception of vascular calcifications in the left upper quadrant. Initiated on isosorbide 20 mg twice daily and referred to vascular surgery for further outpatient evaluation. General: Alert, Oriented x3, Cooperative HEENT: Atraumatic, PERRLA, EOMI, Normocephalic Neck: Supple, No JVD, Negative Carotid Bruits Lungs: Clear to auscultation, Diminished Cardiovascular: Regular rate, No murmurs Abdomen: Bowel Sounds Present, Soft, Non Tender, Distended, Obese Extremities: No clubbing, No cyanosis, No edema, Capillary Refill Less than 3 Seconds Skin: No rashes, No breakdown Musculoskeletal: No Tenderness to Palpation of Joints or Extremities Neurological: Cranial nerves II-XII grossly intact, Neuro grossly intact Psych/Mental Status: Normal Affect, Appropriate Patient seen and examined prior to discharge. Physical assessment as noted above. Patient is stable for discharge with follow up recommendations as noted above. This patient was seen by BE Hernandez under the supervision of Dr. Lorenz. - Physical Exam Vitals/I&O's: Vital Signs Temp Pulse Resp BP Pulse Ox 99.6 F H 85 18 156/77 H 97 03/24/20 10:33 03/24/20 10:33 03/24/20 10:33 03/24/20 10:33 03/24/20 10:33 Oxygen Flow Rate (L/min) 2 Oxygen Delivery Method Room Air Weight: 188 lb 11.451 oz Body Mass Index (BMI) 35.6 Finger Stick Blood Glucose 211 Intake and Output for Last 24 Hours 03/22/20 03/23/20 03/24/20 23:59 23:59 23:59 Intake Total 5491.25 / 5641.25 440 / 440 Output Total 650 / 650 400 / 400 Balance 4841.25 / 4991.25 40 / 40 Microbiology Past 72 Hours 03/21/20 16:00 Urine, Clean Catch Urine Culture - Final Escherichia coli Laboratory Results 03/23/20 11:39: POC Glucose 109 03/23/20 17:30: POC Glucose 100 03/23/20 21:56: POC Glucose 118 H 03/24/20 05:15: WBC 10.2, RBC 3.38 L, Hgb 9.9 L, Hct 31.4 L, MCV 92.9, MCH 29.3, MCHC 31.5 L, RDW Std Deviation 49.1 H, RDW Coeff of Angelina 14.5, Plt Count 168, MPV 11.5 03/24/20 05:15: Sodium 139, Potassium 3.5, Chloride 107, Carbon Dioxide 23.0, Anion Gap 9, BUN 40 H, Creatinine 1.58 H, Estim Creat Clear Calc 21.43, Est GFR (MDRD) Af Amer 41 L, Est GFR (MDRD) Non-Af 33 L, BUN/Creatinine Ratio 25.3 H, Glucose 116 H, Calcium 8.5 03/24/20 06:39: POC Glucose 126 H Current Medications Acetaminophen (Tylenol) 650 mg PO Q4H PRN PRN PRN Reason: Pain Score 1-10/Temp > 100.7 F Last Admin: 03/22/20 21:02 Dose: 650 mg Documented by: Al Hydroxide/Mg Hydroxide (Mylanta Ii) 30 ml PO Q6H PRN PRN PRN Reason: Gastric Burning Albuterol Sulfate (Ventolin Aerosols) 2.5 mg INHALATION Q2H PRN PRN PRN Reason: Dyspnea, wheezing [facility] Last Admin: 03/24/20 10:35 Dose: 500 mg Documented by: Bisacodyl (Dulcolax) 10 mg PO DAILY PRN PRN PRN Reason: Constipation Estradiol (Estrace Vaginal Cream) 1 gm VAGINAL DAILY [facility] Last Admin: 03/24/20 10:39 Dose: 1 gm Documented by: Guaifenesin (Mucinex) 1,200 mg PO BID [facility] Last Admin: 03/24/20 10:36 Dose: 1,200 mg Documented by: Hydralazine HCl (Apresoline Iv) 10 mg IV Q4H PRN PRN PRN Reason: SBP > 160 Ceftriaxone Sodium 2 gm/ (Sodium Chloride) 50 mls @ 100 mls/hr IV Q24 [facility] Last Admin: 03/24/20 10:42 Dose: 100 mls/hr Documented by: Ibuprofen (Motrin) 400 mg PO Q8H PRN PRN PRN Reason: MODERATE ARTHRITIS PAIN Last Admin: 03/23/20 21:58 Dose: 400 mg Documented by: Insulin Human Lispro (Humalog Kwikpen (Bkc)) 0 unit SC [facility]; Protocol Last Admin: 03/24/20 06:41 Dose: Not Given Documented by: Morphine Sulfate () 1 - 2 mg IV Q4H PRN PRN PRN Reason: Pain Score 4-5/10 Last Admin: 03/22/20 15:40 Dose: 2 mg Documented by: Morphine Sulfate () 2 - 4 mg IV Q3H PRN PRN PRN Reason: Pain Score 6-10/10 Morphine Sulfate () 2 - 4 mg IV Q3H PRN PRN PRN Reason: Pain Score 6-10/10 Ondansetron HCl (Zofran) 4 mg IV Q8H PRN PRN PRN Reason: Nausea Last Admin: 03/22/20 15:39 Dose: 4 mg Documented by: Oxycodone HCl (Oxyir) 5 mg PO Q4H PRN PRN PRN Reason: Pain Score 4-5/10 Polyethylene Glycol (Miralax) 17 gm PO DAILY [facility] Last Admin: 03/24/20 10:36 Dose: Not Given Documented by: Prochlorperazine Edisylate (Compazine Iv) 10 mg IV Q6H PRN PRN PRN Reason: Nausea/Vomiting Psyllium Hydrophilic Mucilloid (Metamucil) 1 packet PO DAILY [facility] Last Admin: 03/24/20 10:36 Dose: Not Given Documented by: Senna/Docusate Sodium (Senokot-S, Syeda-Colace) 2 tablet PO BID [facility] Last Admin: 03/24/20 10:37 Dose: Not Given Documented by: Sodium Chloride () 10 - 40 ml IV UD PRN PRN Reason: SALINE FLUSH Last Admin: 03/24/20 10:42 Dose: 10 ml Documented by: Discharge Diet: Carb Control Diet Discharge Activity: Return to Normal Activity Call your doctor if you observe: Shortness of breath, Dizziness, Fainting spells, Chest pain Home Medications: Medications to take at Discharge Fish Oil/Dha/Epa [Fish Oil 1,200 mg Fish Oil] 1 each PO BID 11/06/15 Glimepiride [Amaryl] 4 mg PO BID 11/06/15 Lisinopril [Zestril] 5 mg PO DAILY 11/06/15 Cholecalciferol (Vitamin D3) [Vitamin D3] 5,000 unit PO DAILY 03/21/20 Garlic 1,000 mg PO DAILY 03/21/20 Turmeric Root Extract [Turmeric] 500 mg PO DAILY 03/21/20 Ubidecarenone [Co Q-10] 100 mg PO DAILY 03/21/20 Pindolol [Pindolol (Beta Jacqueline)] 5 mg PO DAILY 03/22/20 Ascorbic Acid [Vitamin C] 500 mg PO BIDCM #60 tab 03/24/20 Cefadroxil Hydrate [Duricef] 500 mg PO DAILY #5 cap 03/24/20 D-Mannose 1 gm MC TID 14 Days #1 bottle 03/24/20 Estradiol [Estrace] 1 gm VAGINAL DAILY #1 bottle 03/24/20 Isosorbide Mononitrate [Monoket] 20 mg PO BID #60 tab 03/24/20 Following Prescriptions Were Given to Patient: D-Mannose 1 gm MC TID 14 Days #1 bottle Transmission Status: Received by [id number] Cefadroxil Hydrate [Duricef] 500 mg PO DAILY #5 cap Transmission Status: Received by [id number] Estradiol [Estrace] 1 gm VAGINAL DAILY #1 bottle Transmission Status: Received by [id number] Isosorbide Mononitrate [Monoket] 20 mg PO BID #60 tab Transmission Status: Received by [id number] Ascorbic Acid [Vitamin C] 500 mg PO BIDCM #60 tab Transmission Status: Received by [id number] Primary Care Physician: Sukhjinder Garcia MD [Primary Care Provider] - Please follow up with your Primary Care Physician in: 1 Week Please Follow Up With: Agustina Salas MD When: 1 Week Please Follow Up With: Celso Anderson MD - Vascular surgery When: 2 Weeks Disposition: Home Minutes spent on discharge:: 35 Patient Condition:: Stable Medical Necessity - Tobacco Use Smoking Status: Never smoker Tobacco Use: Non-smoker Meaningful Use Info Meaningful Use Diagnoses (Choose all that apply): None applicable <Ricardo Lorenz - Last Filed: 03/24/20 13:16> Discharge Date and Diagnosis - Secondary Discharge Diagnosis Chronic Problems: Chronic Problems HTN (hypertension) (Chronic) Diabetes (Chronic) Hyponatremia (Chronic) Hospital Course and Treatment Summary of Care Provided: This patient was seen in conjunction with [employer], Lilia. I have independently interviewed and examined the patient and reviewed pertinent history, examination findings, laboratory and plan of management. I have reviewed the note and agree with the documented findings with the few additional points. In brief, patient is 80-year-old female with history of kidney stone is admitted with fever, urge incontinence and retention and burning micturition along with bilateral nonspecific vague abdominal pain. CT abdomen shows mild right hydronephrosis and hydroureter and perinephric stranding and mild enlargement of right kidney. No radiopaque stone visualized. Colonic diverticulosis. Urology consult was called and discussed with Dr. Asif. She advised to continue antibiotic and start vaginal estrogen cream, vitamin C and d-mannose. Pharmacy does not have d-mannose. Patient currently does not have constipation but is on oral laxatives. Advised outpatient cystoscopy for further evaluation and prevention of UTI. She has complicated UTI with evidence of right hydroureter and pyelonephritis along with acute kidney injury. Creatinine improving. 03/23: Patient seen and examined with Dr. Salas. We agreed that right hydroureter was not significant and patient improving on IV fluid antibiotic therefore no urology intervention at present. There is outpatient plan for ultrasound kidneys and bladder in 4 to 6-week and follow-up with Dr. Salas. Patient also has fluid overload with pulmonary congestion. Lasix 40 mg IV given in the morning, along with a stool softener and magnesium citrate. 03/24: It seems that patient has undiagnosed chronic mesenteric ischemia with typical symptoms of sitophobia, early satiety and abdominal pain worse in the food. Advised follow-up with Dr. Celso Anderson, vascular surgeon. Interim, patient was started on nitrate, Monoket immediate release 20 mg twice daily for relief. Patient will further need evaluation with vascular surgeon and CT angiogram. Patient is discharged on Duricef 500 mg twice daily for 5 more days. Follow-up with urologist urologist Dr. Salas in 2 to 4 weeks. Hypotonic, hypovolemic hyponatremia: Resolved with IV fluid. Discharge medication reconciliation done. Discharge follow-up instructions completed. Discharge process discussed with the patient and all questions were answered to patient's satisfaction. Total time spent, exact 35 minutes on discharge meds reconciliation, examination, coordination of care with nurses and ancillary staff, review of imaging and blood test and discussion with the patient on follow-up instructions I have discussed my assessment with [employer]Lilia and orders have been reviewed. [] Objective: Seen and examined. Patient complain of left to right upper abdominal pain moving across. This pain is ongoing, progressively worsening, for a few months but first discomfort probably 6 months ago. On further history she told it gets worse after eating and she feels early satiety and does not want to eat. KUB x-ray shows vascular calcification in the left upper quadrant which goes with calcification of mesenteric artery, splenic artery, branches of celiac trunk. Prior to that CT abdomen with IV contrast also shows the opacified vessels and diffuse atherosclerotic calcification of abdominal aorta. She had loose bowel movement to diarrhea after bowel regimen. Is getting normal. Physical exam General: Alert, Oriented x3, Cooperative HEENT: Atraumatic, PERRLA, EOMI, Normocephalic Oral: No Gingival or Mucosal Lesions/ Ulcerations Neck: Supple, No JVD, Negative Carotid Bruits Lungs: Air entry diminished in bilateral lung bases. intermittent fine crackles present on right lung base Cardiovascular: Regular rate, Regular Rhythm, Normal S1, Normal S2, No murmurs Abdomen: Soft, nontender, nondistended. No palpable mass. Bowel Sounds Present. : Mild left renal angle tenderness. No suprapubic tenderness. Extremities: No edema, Capillary Refill Less than 3 Seconds Skin: No rashes, No breakdown Musculoskeletal: No Tenderness to Palpation of Joints or Extremities Neurological: Cranial nerves II-XII grossly intact, Deep Tendon Reflexes 2+/4 and Symmetrical, Neuro grossly intact Psych/Mental Status: Normal Affect, Appropriate. - Physical Exam Vitals/I&O's: Vital Signs Temp Pulse Resp BP Pulse Ox 99.6 F H 85 18 156/77 H 97 03/24/20 10:33 03/24/20 10:33 03/24/20 10:33 03/24/20 10:33 03/24/20 10:33 Oxygen Flow Rate (L/min) 2 Oxygen Delivery Method Room Air Weight: 188 lb 11.451 oz Body Mass Index (BMI) 35.6 Finger Stick Blood Glucose 211 Intake and Output for Last 24 Hours 03/22/20 03/23/20 03/24/20 23:59 23:59 23:59 Intake Total 5491.25 / 5641.25 440 / 440 370 / 370 Output Total 650 / 650 400 / 400 Balance 4841.25 / 4991.25 40 / 40 370 / 370 Microbiology Past 72 Hours 03/21/20 16:00 Urine, Clean Catch Urine Culture - Final Escherichia coli Laboratory Results 03/23/20 17:30: POC Glucose 100 03/23/20 21:56: POC Glucose 118 H 03/24/20 05:15: WBC 10.2, RBC 3.38 L, Hgb 9.9 L, Hct 31.4 L, MCV 92.9, MCH 29.3, MCHC 31.5 L, RDW Std Deviation 49.1 H, RDW Coeff of Angelina 14.5, Plt Count 168, MPV 11.5 03/24/20 05:15: Sodium 139, Potassium 3.5, Chloride 107, Carbon Dioxide 23.0, Anion Gap 9, BUN 40 H, Creatinine 1.58 H, Estim Creat Clear Calc 21.43, Est GFR (MDRD) Af Amer 41 L, Est GFR (MDRD) Non-Af 33 L, BUN/Creatinine Ratio 25.3 H, Glucose 116 H, Calcium 8.5 03/24/20 06:39: POC Glucose 126 H 03/24/20 12:05: POC Glucose 195 H Current Medications Acetaminophen (Tylenol) 650 mg PO Q4H PRN PRN PRN Reason: Pain Score 1-10/Temp > 100.7 F Last Admin: 03/22/20 21:02 Dose: 650 mg Documented by: Al Hydroxide/Mg Hydroxide (Mylanta Ii) 30 ml PO Q6H PRN PRN PRN Reason: Gastric Burning Albuterol Sulfate (Ventolin Aerosols) 2.5 mg INHALATION Q2H PRN PRN PRN Reason: Dyspnea, wheezing [facility] Last Admin: 03/24/20 10:35 Dose: 500 mg Documented by: Bisacodyl (Dulcolax) 10 mg PO DAILY PRN PRN PRN Reason: Constipation Estradiol (Estrace Vaginal Cream) 1 gm VAGINAL DAILY [facility] Last Admin: 03/24/20 10:39 Dose: 1 gm Documented by: Guaifenesin (Mucinex) 1,200 mg PO BID [facility] Last Admin: 03/24/20 10:36 Dose: 1,200 mg Documented by: Hydralazine HCl (Apresoline Iv) 10 mg IV Q4H PRN PRN PRN Reason: SBP > 160 Ceftriaxone Sodium 2 gm/ (Sodium Chloride) 50 mls @ 100 mls/hr IV Q24 [facility] Last Infusion: 03/24/20 11:35 Dose: Infused Documented by: Ibuprofen (Motrin) 400 mg PO Q8H PRN PRN PRN Reason: MODERATE ARTHRITIS PAIN Last Admin: 03/24/20 12:22 Dose: 400 mg Documented by: Insulin Human Lispro (Humalog Kwmarispen (Bkc)) 0 unit SC [facility]; Protocol Last Admin: 03/24/20 12:19 Dose: 3 unit Documented by: Morphine Sulfate () 1 - 2 mg IV Q4H PRN PRN PRN Reason: Pain Score 4-5/10 Last Admin: 03/22/20 15:40 Dose: 2 mg Documented by: Morphine Sulfate () 2 - 4 mg IV Q3H PRN PRN PRN Reason: Pain Score 6-10/10 Morphine Sulfate () 2 - 4 mg IV Q3H PRN PRN PRN Reason: Pain Score 6-10/10 Ondansetron HCl (Zofran) 4 mg IV Q8H PRN PRN PRN Reason: Nausea Last Admin: 03/22/20 15:39 Dose: 4 mg Documented by: Oxycodone HCl (Oxyir) 5 mg PO Q4H PRN PRN PRN Reason: Pain Score 4-5/10 Polyethylene Glycol (Miralax) 17 gm PO DAILY [facility] Last Admin: 03/24/20 10:36 Dose: Not Given Documented by: Prochlorperazine Edisylate (Compazine Iv) 10 mg IV Q6H PRN PRN PRN Reason: Nausea/Vomiting Psyllium Hydrophilic Mucilloid (Metamucil) 1 packet PO DAILY [facility] Last Admin: 03/24/20 10:36 Dose: Not Given Documented by: Senna/Docusate Sodium (Senokot-S, Syeda-Colace) 2 tablet PO BID [facility] Last Admin: 03/24/20 10:37 Dose: Not Given Documented by: Sodium Chloride () 10 - 40 ml IV UD PRN PRN Reason: SALINE FLUSH Last Admin: 03/24/20 10:42 Dose: 10 ml Documented by: Inpatient E&M: [id number] Disch Hosp
[2020-03-24 12:11] LABS: Bedside Glucose 195 mg/dL (70-110)
[2020-03-24] MEDS: Insulin Lispro 100 UNIT/ML INSULN.PEN SC (12:19)
[2020-03-24] MEDS: Isosorbide DN 20 MG Tablet PO (12:19)
[2020-03-24] MEDS: Ibuprofen 400 MG Tablet PO (12:22)
[2020-03-24 15:03] VITALS: BP 122/73; PULSE 99; RESP 16; TEMP 37.2; O2SAT 96
== END 2020-03-24 16:49 | disposition home or self-care (01) | DRG 689 ==
LOC: ED 17:29 → MS3 17:57
PROVIDERS: Family Medicine; Nurse Practitioner Family; Admitting Provider Internal Medicine; Emergency Provider Emergency Medicine; PCP Family Medicine; Visit Provider Internal Medicine
DX: N30.00 Acute cystitis without hematuria (principal); K55.059 Acute (reversible) ischemia of intestine, part and extent unspecified; N17.9 Acute kidney failure, unspecified; E87.1 Hypo-osmolality and hyponatremia; N13.6 Pyonephrosis; B96.20 Unspecified Escherichia coli [E. coli] as the cause of diseases classified elsewhere; E86.1 Hypovolemia; I10 Essential (primary) hypertension; K59.00 Constipation, unspecified; E86.0 Dehydration; E11.65 Type 2 diabetes mellitus with hyperglycemia; E87.70 Fluid overload, unspecified; K57.90 Diverticulosis of intestine, part unspecified, without perforation or abscess without bleeding; N31.2 Flaccid neuropathic bladder, not elsewhere classified; N39.498 Other specified urinary incontinence; E66.9 Obesity, unspecified; Z68.35 Body mass index [BMI] 35.0-35.9, adult; Z87.442 Personal history of urinary calculi; Z87.440 Personal history of urinary (tract) infections; Z79.84 Long term (current) use of oral hypoglycemic drugs; Z79.899 Other long term (current) drug therapy
CPT/HCPCS: 36415; 71045; 74018; 74176; 76770; 80048; 81001; 82009; 82962; 83036; 83605; 85025; 85027; 87040; 87077; 87086; 87088; 87186; 99284; J7030; J7040; A4216; J0696; J1940; J2405

== ENCOUNTER → 2020-04-03 | Outpatient (CLI) | payer MEDICARE, OTHER, SELFPAY ==
[2020-03-21 18:27] VITALS: BMI 35.6
[2020-04-03 16:57] LABS: Mucous, Urine 0 SEEN /hpf (<or=2+)
[2020-04-03 17:52] LABS: Color, Urine Yellow (Yellow); Glucose, Dipstick Normal (Normal); Ketone-Dipstick Negative (Negative); Leukocyte Esterase-Dipstick 500 /ul (Negative); Nitrite-Dipstick Negative (Negative); Occult Blood-Urine 25 /ul (Negative); Protein-Dipstick 30 mg/dl (Negative); Specific Gravity, Urine 1.015 (1.002-1.030); Urine Bilirubin Dipstick Negative (Negative); Urine Urobilinogen Normal (Normal)
[2020-04-03 19:01] LABS: Red Blood Cells-Urine 0-5 SEEN /hpf (0-5); Squamous Epithelial Cells - UA 0-5 SEEN /hpf (5-10); Urine Clarity Sl Cldy (Clear); White Blood Cells 50-100 SEEN /hpf (0-5)
[2020-04-03 19:02] LABS: Amorphous Sediment 1+ URATE; Bacteria RARE /hpf (None Seen)
== END | disposition home or self-care (01) ==
LOC: LABSPEC 16:34
PROVIDERS: PCP Family Medicine; Referring Provider Nurse Practitioner Adult Health; Visit Provider Nurse Practitioner Adult Health
DX: N39.0 Urinary tract infection, site not specified (principal); R31.9 Hematuria, unspecified
CPT/HCPCS: 81001; 87077; 87086; 87088; 87186

== ENCOUNTER → 2020-04-12 16:07 | Outpatient (CLI) | payer MEDICARE, OTHER, SELFPAY ==
[2020-03-21 18:27] VITALS: BMI 35.6
== END ==
PROVIDERS: PCP Family Medicine; Referring Provider Nurse Practitioner Adult Health; Visit Provider Nurse Practitioner Adult Health
DX: N39.0 Urinary tract infection, site not specified (principal)
CPT/HCPCS: 87086; 87088

== ENCOUNTER 2020-08-14 00:48 | Emergency (ER) | payer MEDICARE, OTHER, SELFPAY ==
[2020-03-21 18:27] VITALS: BMI 35.6
[2020-08-14 00:49] VITALS: BP 190/89; PULSE 74; RESP 16; RESP 18; TEMP 37.2; O2SAT 97; O2SAT 98; BMI 37.5
--- NOTE | 2020-08-14 00:58 | EKG12_ITS ---
Test Reason : PALPITATIONS Blood Pressure : / mmHG Vent. Rate : 071 BPM Atrial Rate : 071 BPM P-R Int : 174 ms QRS Dur : 080 ms QT Int : 396 ms P-R-T Axes : 065 010 008 degrees QTc Int : 430 ms Normal sinus rhythm Nonspecific ST abnormality Abnormal ECG Confirmed by PAULY ROWLAND, ZULEIMA ([id number]), editorial clerk ATIF LOPEZ ([id number]) on 08/16/2020 7:31:16 AM Referred By: Confirmed By:ZULEIMA COATS MD
--- NOTE | 2020-08-14 01:09 | CT_ITS ---
STUDY: CT BRAIN WITHOUT CONTRAST REASON FOR EXAM: Female, 80 years old. Upper extremity paresthesias and heart palpitations RADIATION DOSAGE (If Supplied By Facility): CTDIvol = ( 44.99 ) mGy, DLP = ( 812.98 ) mGycm TECHNIQUE: Transaxial CT imaging of the brain was performed without administration of intravenous contrast material. Individualized dose optimization techniques were used for this CT. COMPARISON: No relevant priors. FINDINGS: Normal soft tissue structures. Normal calvarium. There is mild to moderate cerebral atrophy with widening of the extra-axial spaces and ventricular dilatation. There is mild bilateral periventricular and subcortical white matter hypoattenuation which is symmetric in distribution. Normal basal ganglia and thalami. Normal brainstem. Normal cerebellum. There is no intracranial hemorrhage. There are no findings of an acute ischemic infarction. There is mild mucoperiosteal thickening of the paranasal sinuses. CT/Brain/Head without Contrast IMPRESSION: 1. No evidence of an acute intracranial abnormality. 2. Mild bilateral periventricular and subcortical white matter chronic small vessel disease with age appropriate cerebral atrophy. 3. Mild chronic paranasal sinus disease Electronically Signed: Ed Nguyen MD at 1:35 EST Tel , Service support ,
--- NOTE | 2020-08-14 01:09 | RAD_ITS ---
STUDY: X-RAY CHEST REASON FOR EXAM: Female, 80 years old. Heart palpitations. TECHNIQUE: PA and lateral views of the chest. COMPARISON: None. FINDINGS: The lungs are clear and expanded. There is no demonstrated pleural abnormality. Normal size heart. Normal mediastinum and eleuterio. Normal visualized pulmonary arteries. There is atherosclerotic calcification of the aortic arch . Mild S-shaped scoliosis of the thoracolumbar spine with multilevel degenerative change. Normal visualized ribs, clavicles, and shoulders. There is no demonstrated abnormality of the visualized soft tissue structures of the upper abdomen. RAD/Chest PA and Lateral IMPRESSION: No acute cardiopulmonary disease Electronically Signed: Ed Nguyen MD at 1:53 EST Tel , Service support ,
[2020-08-14 01:17] LABS: Absolute Lymphocyte Count 1.97 X10^3/uL (0.83-4.51); Absolute Neutrophil Count 3.1 X10^3/uL (2.0-7.7); Basophil# 0.04 X10^3/uL; Basophil% 0.7 % (0-1); Eosinophils% 3.4 % (0-5); Hematocrit 36.8 % (37-47); Hemoglobin 11.6 g/dL (12.0-15.0); Lymphocyte # 1.97 X10^3/ul (4.0); Lymphocyte % 33.7 % (19-41); Mean Corp Hgb Conc 31.5 g/dL (32-36); Mean Corpuscular Hgb 29.7 pg (27.0-32.0); Mean Corpuscular Volume 94.4 fL (81-99); Mean Platelet Vol. 11.3 fl (6.2-12.0); Monocyte# 0.54 X10^3/uL; Monocyte% 9.2 % (0-10); NRBC Flagged by Analyzer 0 % (0-5); Neutrophil # 3.06 X10^3/uL (2.7-7.7); Neutrophil % 52.5 % (47-70); Platelet Count 162 K/mm3 (150-450); RBC Distribution Width CV 14.6 % (11.6-14.6); RBC Distribution Width SD 50.2 fl (35.1-43.9); White Blood Count 5.8 K/mm3 (4.4-11.0)
--- NOTE | 2020-08-14 01:28 | ED.DCSUM_ITS ---
History of Present Illness Chief Complaint: Palpitations Informant: Patient Onset: Today Context: Sudden Onset Narrative: Patient is an 80-year-old female with history of hypertension and diabetes mellitus presenting with a pounding sensation in her chest. She states she went to bed around 9 PM and felt that her heart was pounding. States it would let up for couple hours so she came to the emergency room. She states it has been gradually improving. She denies any associated chest pain or shortness of breath. She denies any fever, chills, upper respiratory symptoms or cough. She denies any change in bowel habits or urinary symptoms. She notes her is sick at home. She has been stressed out about that. Patient also states that 2 nights ago she had paresthesias in her hands and a crawling sensation. That has since resolved. In addition she has been doing some chronic back pain which she was taken ibuprofen for but her doctor told her to switch to Tylenol because of damage to her kidneys. Past Medical History - Allergies and Home Meds Allergies/Adverse Reactions: Allergies diphenhydramine HCl [From Benadryl] Adverse Reaction (Verified 03/21/20 14:45) Other CAN'T SLEEP SLEEPING PILL Adverse Reaction (Uncoded 03/21/20 14:45) Other CAUSES ANXIETY, NERVOUS FEELING Primary Care Physician: Sukhjinder Garcia MD [Primary Care Provider] - Past Medical History: - - Hypertension, diabetes mellitus, CKD, history of kidney stones Surgical History: no surgical history Lives: Spouse/ Significant Other Smoking Status: Never smoker - Family History Maternal Family History: Reports: Diabetes Paternal Family History: Reports: No pertinent history Review of Systems General: Denies: Chills, Fever, Sweats Eyes: Denies: Visual changes - bilaterally, Diplopia ENT: Denies: Rhinorrhea, Sore throat Cardiovascular: Reports: Heart racing, - - Sensation of heart pounding. Denies: Chest pain, Palpitations Respiratory: Denies: Dyspnea, Cough, Dyspnea on exertion Gastrointestinal: Denies: Abdominal pain, Nausea, Vomiting, Diarrhea, Melena, Hematochezia Genitourinary: Denies: Dysuria, Hematuria, Frequency Musculoskeletal: Denies: Back pain, Extremity Pain Skin: Denies: Rash, Wounds Neurological: Reports: Parasthesia - Arms, 2 days ago, currently resolved. Denies: Headache, Weakness, Numbness Physical Exam Vital Signs/Narrative: Vital Signs Temp Pulse Resp BP Pulse Ox 08/14/20 00:49 99.0 F 74 16 190/89 H 98 Inital Vital Signs reviewed: Yes General: Well nourished, Well developed, No Acute Distress Head: Normocephalic, Atraumatic Eyes: Perrl, EOMI ENT: Moist mucous membranes, No rhinorrhea Neck: Supple, Nontender, No JVD Cardiovascular: Regular rate, Regular rhythm, No murmurs Respiratory: No distress, CTA bilaterally, Chest nontender Abdomen: Soft, Nontender, Nondistended, Normal bowel sounds Back: Nontender, Normal Inspection. Negative for: CVA tenderness Extremities: Nontender, No edema Skin: Normal color, No rash Neurological: Alert, Oriented x3, Cranial nerves II-XII grossly intact, Normal Strength, Normal Sensation Psychological: Normal affect, Normal Mood Diagnostic/Tx/Re-eval Chest X-Ray - ED: 2 View, Read by ED Physician, Read by Radiologist, No Acute Disease Clinical Impression(s) from Imaging Studies Brain CT 08/14/20 01:09 IMPRESSION: 1. No evidence of an acute intracranial abnormality. 2. Mild bilateral periventricular and subcortical white matter chronic small vessel disease with age appropriate cerebral atrophy. 3. Mild chronic paranasal sinus disease Electronically Signed: Ed Nguyen MD at 1:35 EST Tel , Service support , Chest X-Ray 08/14/20 01:09 IMPRESSION: No acute cardiopulmonary disease Electronically Signed: Ed Nguyen MD at 1:53 EST Tel , Service support , Laboratory Data 08/14/20 08/14/20 08/14/20 00:57 00:57 01:25 WBC 5.8 RBC 3.90 L Hgb 11.6 L Hct 36.8 L MCV 94.4 MCH 29.7 MCHC 31.5 L RDW Std Deviation 50.2 H RDW Coeff of Angelina 14.6 Plt Count 162 MPV 11.3 Immature Gran % (Auto) 0.500 Neut % (Auto) 52.5 Lymph % (Auto) 33.7 Haakon % (Auto) 9.2 Eos % (Auto) 3.4 Baso % (Auto) 0.7 Absolute Neuts (auto) 3.1 Absolute Lymphs (auto) 1.97 Nucleated RBC % 0 PT 11.7 INR 0.9 Sodium 139 Potassium 4.8 Chloride 108 H Carbon Dioxide 26.0 Anion Gap 5 BUN 58 H Creatinine 1.45 H Estim Creat Clear Calc 23.35 Est GFR (MDRD) Af Amer 45 L Est GFR (MDRD) Non-Af 37 L BUN/Creatinine Ratio 40.0 H Glucose 164 H Calcium 9.2 Total Bilirubin 0.20 AST 20 ALT 20 Alkaline Phosphatase 55 Troponin I < 0.015 Total Protein 7.5 Albumin 3.6 Globulin 3.9 Albumin/Globulin Ratio 0.9 TSH 2.37 Urine Color Urine Clarity Urine pH Ur Specific [place] Urine Protein Urine Glucose (UA) Urine Ketones Urine Occult Blood Urine Nitrite Urine Bilirubin Urine Urobilinogen Ur Leukocyte Esterase Urine RBC Urine WBC Ur Squamous Epith Cells Urine Bacteria Urine Mucus 08/14/20 08/14/20 03:25 04:10 WBC RBC Hgb Hct MCV MCH MCHC RDW Std Deviation RDW Coeff of Angelina Plt Count MPV Immature Gran % (Auto) Neut % (Auto) Lymph % (Auto) Haakon % (Auto) Eos % (Auto) Baso % (Auto) Absolute Neuts (auto) Absolute Lymphs (auto) Nucleated RBC % PT INR Sodium Potassium Chloride Carbon Dioxide Anion Gap BUN Creatinine Estim Creat Clear Calc Est GFR (MDRD) Af Amer Est GFR (MDRD) Non-Af BUN/Creatinine Ratio Glucose Calcium Total Bilirubin AST ALT Alkaline Phosphatase Troponin I < 0.015 Total Protein Albumin Globulin Albumin/Globulin Ratio TSH Urine Color Yellow Urine Clarity Clear Urine pH 6.0 Ur Specific [place] 1.015 Urine Protein Negative Urine Glucose (UA) Normal Urine Ketones Negative Urine Occult Blood Negative Urine Nitrite Negative Urine Bilirubin Negative Urine Urobilinogen Normal Ur Leukocyte Esterase 500 H Urine RBC 0 SEEN Urine WBC 10-25 SEEN Ur Squamous Epith Cells 0-5 SEEN Urine Bacteria 0 SEEN Urine Mucus 0 SEEN - Rhythm Strip Rhythm Strip: Sinus Rhythm Rate: 71 Ectopy: None - EKG Initial EKG Interpretation: Sinus Rhythm, - - Normal sinus rhythm at a rate of 71 new intervals T wave inversion in lead III with no reciprocal changes Compared to prior EKG on 10/08/2018 patient has no acute changes Prior: Unchanged - Medical Decision Making Patient is evaluated for episode of a pounding sensation in her chest. She states her blood pressure is high. Sugar is also high. In addition 2 days ago patient had episode of paresthesias of her arm. Patient currently has an NIH is 0. She was nontoxic in no acute distress. She is hypertensive but this seems to be going down without any intervention while I am in the room. She is not currently have any chest pain. She really denies chest pain states it is more of a pounding sensation but does have a hard time describing it. Patient does have some cardiac risk factors advanced age so cardiac work-up is ordered. I also checked a TSH as she is on palpitations and performed a head CT she did have episode of paresthesias few days ago. Work-up is largely negative. Delta troponin is performed which is negative x2. She has not have any dynamic EKG changes. Patient does have 500 leuk esterase as well as 10-25 white blood cells in her urine. I will treat her empirically as a UTI. Urine culture sent. Prior urine cultures are reviewed which are mostly pansensitive. Patient was placed on a 7-day course of Keflex. Patient is counseled on signs and symptoms requiring return to the emergency room. Patient verbalizes agreement and understand this plan. Patient discharged home in stable and improved condition. ED Disposition - Plan for ED Patient: Disposition: Home or Assisted Living Diagnosis: Palpitations with regular cardiac rhythm, UTI (urinary tract infection) Instructions: ED Bladder Infection, Female (Adult), ED Palpitations Prescriptions: Cephalexin [Keflex] 500 mg PO Q12 #14 cap Prescription Printed
[2020-08-14 01:38] LABS: ALB/GLOB Ratio 0.9 RATIO (0.9-2.4); AST(SGOT) 20 U/L (15-37); Alanine Aminotransfer ALT/SGPT 20 U/L (13-56); Albumin, Serum 3.6 g/dL (3.2-5.0); Alkaline Phosphatase 55 U/L (45-117); Anion Gap 5 (5-15); BUN 58 mg/dL (7-18); Calcium,Total 9.2 mg/dL (8.5-10.1); Chloride 108 mmol/L (98-107); Creatinine, Serum 1.45 mg/dL (0.55-1.02); EST Glomerular Filtration Rate 37 mL/min (>60); Est Glom Filt Rate - Afr Amer 45 mL/min (>60); Estimated Creatinine Clearance 23.35 ml/min; Globulin 3.9 g/dL (2.2-4.2); Glucose 164 mg/dL (74-106); Potassium 4.8 mmol/L (3.5-5.1); Protein, Total 7.5 g/dL (6.4-8.2); Sodium Level 139 mmol/L (136-145); Thyroid Stim Hormone (TSH) 2.37 uIU/mL (0.358-3.74)
[2020-08-14 01:40] LABS: International Normalized Ratio 0.9; Prothrombin Time (Protime)PT. 11.7 SECONDS (11.7-14.9)
[2020-08-14 01:49] VITALS: BP 145/59; PULSE 70; RESP 13; O2SAT 98
[2020-08-14 02:00] VITALS: BP 139/54; PULSE 69; RESP 16; O2SAT 98
[2020-08-14 03:00] VITALS: BP 135/59; PULSE 69; RESP 16; O2SAT 99
[2020-08-14 03:36] LABS: Bacteria 0 SEEN /hpf (None Seen); Mucous, Urine 0 SEEN /hpf (<or=2+); Red Blood Cells-Urine 0 SEEN /hpf (0-5)
[2020-08-14 03:38] LABS: Color, Urine Yellow (Yellow); Glucose, Dipstick Normal (Normal); Ketone-Dipstick Negative (Negative); Leukocyte Esterase-Dipstick 500 /ul (Negative); Nitrite-Dipstick Negative (Negative); Occult Blood-Urine Negative /ul (Negative); Protein-Dipstick Negative (Negative); Specific Gravity, Urine 1.015 (1.002-1.030); Urine Bilirubin Dipstick Negative (Negative); Urine Clarity Clear (Clear); Urine Urobilinogen Normal (Normal)
[2020-08-14 03:44] LABS: Squamous Epithelial Cells - UA 0-5 SEEN /hpf (5-10); White Blood Cells 10-25 SEEN /hpf (0-5)
[2020-08-14 04:00] VITALS: BP 135/66; PULSE 66; RESP 14; O2SAT 98
[2020-08-14 04:45] VITALS: BP 145/64; PULSE 74; RESP 16; O2SAT 97
[2020-08-14] MEDS: Cephalexin 250 MG Capsule 500 MG PO (05:11)
== END 2020-08-14 07:02 | disposition home or self-care (01) ==
PROVIDERS: Emergency Provider Emergency Medicine; PCP Family Medicine
DX: R00.2 Palpitations (principal); N39.0 Urinary tract infection, site not specified; I12.9 Hypertensive chronic kidney disease with stage 1 through stage 4 chronic kidney disease, or unspecified chronic kidney disease; E11.22 Type 2 diabetes mellitus with diabetic chronic kidney disease; N18.9 Chronic kidney disease, unspecified; Z87.442 Personal history of urinary calculi; Z79.84 Long term (current) use of oral hypoglycemic drugs; Z79.899 Other long term (current) drug therapy
CPT/HCPCS: 70450; 71046; 80053; 81001; 84443; 84484; 85025; 85610; 87086; 87088; 93005; 99285; A4216

== ENCOUNTER 2020-10-18 22:27 | Emergency (ER) | payer MEDICARE, OTHER, SELFPAY ==
[2020-10-18 22:28] VITALS: BP 193/87; PULSE 107; RESP 18; TEMP 36.4; O2SAT 96; BMI 34.9
--- NOTE | 2020-10-18 22:40 | ED.VIS.GEN ---
History of Present Illness Chief Complaint: Nausea/Vomiting/Diarrhea Informant: Patient Onset: Today Context: Sudden Onset Timing: Intermittent, Waxes and wanes Quality: Diarrhea that started this morning and vomiting started after arrival Location: GI Current Severity: Severe Maximum Severity: Severe Worsened by: Nothing Relieved by: Nothing Associated Symptoms: Thirst, dry mouth, decreased urine output Narrative: Patient is an elderly woman who presents because of diarrhea that started this morning. She states she is had 8 loose watery stools. She has noted mucus. There is no blood. There is no history of inflammatory bowel disorder. She denies dysuria, frequency or urgency. Prior similar symptoms: No Recent Illness/Hospitalization: No - Past Medical History (1) Hydronephrosis Status: Acute (2) UTI (urinary tract infection) Status: Acute (3) Diabetes Status: Chronic (4) HTN (hypertension) Status: Chronic Past Medical History - Allergies and Home Meds Allergies/Adverse Reactions: Allergies diphenhydramine HCl [From Benadryl] Adverse Reaction (Verified 10/18/20 22:29) Other CAN'T SLEEP SLEEPING PILL Adverse Reaction (Uncoded 10/18/20 22:29) Other CAUSES ANXIETY, NERVOUS FEELING Primary Care Physician: Sukhjinder Garcia MD [Primary Care Provider] - 1-2 Days if not improving Surgical History: no surgical history Lives: Alone Smoking Status: Never smoker Alcohol: None Drugs: None - Family History Maternal Family History: Reports: Diabetes Paternal Family History: Reports: No pertinent history Review of Systems General: Reports: Malaise. Denies: Chills, Fever, Subjective, Sweats Eyes: Denies: Visual changes - bilaterally, Blurred Vision - bilaterally ENT: Denies: Rhinorrhea, Sore throat Cardiovascular: Denies: Chest pain, Palpitations Respiratory: Denies: Dyspnea, Cough, Dyspnea on exertion Gastrointestinal: Reports: Abdominal pain, Nausea, Vomiting, Diarrhea, - - Is intolerant to any type of food. She denies hematemesis.. Denies: Constipation, Melena, Hematochezia Genitourinary: Denies: Dysuria, Hematuria, Frequency Musculoskeletal: Reports: Back pain - Chronic. Denies: Myalgias, Arthralgias, Neck pain, Swelling, Extremity Pain, -, - Skin: Denies: Rash, Wounds Neurological: Reports: Weakness. Denies: Headache, Parasthesia Psych: Reports: Depression Endocrine: Denies: Polyuria, Polydipsia Hematologic: Denies: Easy bruising, Easy bleeding Physical Exam Vital Signs/Narrative: Vital Signs Temp Pulse Resp BP Pulse Ox 10/18/20 22:28 97.6 F L 107 H 18 193/87 H 96 Inital Vital Signs reviewed: Yes General: Well nourished, Well developed, Obese, Acute Distress Head: Normocephalic, Atraumatic Eyes: Perrl, EOMI. Negative for: Pale conjunctiva, Scleral icterus ENT: No rhinorrhea, TM's clear, Dry mucous membranes. Negative for: Nasal congestion Neck: Supple, Nontender, No lymphadenopathy, No JVD Cardiovascular: Regular rhythm, No murmurs, Normal S1, Normal S2, Tachycardia Respiratory: No distress, CTA bilaterally, Chest nontender Abdomen: Soft, Nontender, Nondistended, Normal bowel sounds, No masses Rectal: Deferred Back: Nontender, Normal Inspection Extremities: Nontender, No edema. Negative for: Calf Tenderness Skin: Normal color, No rash, No Trauma. Negative for: Cyanosis, Diaphoresis, Jaundice Neurological: Alert, Oriented x3, Cranial nerves II-XII grossly intact, Normal Strength, Normal Sensation Psychological: - - Flat affect. Diagnostic/Tx/Re-eval Laboratory Results 10/18/20 23:05 Sodium 136 Potassium 4.0 Chloride 106 Carbon Dioxide 25.0 Anion Gap 5 BUN 23 H Creatinine 1.08 H Estim Creat Clear Calc 31.35 Est GFR (MDRD) Af Amer 63 Est GFR (MDRD) Non-Af 52 L BUN/Creatinine Ratio 21.3 H Glucose 104 Calcium 8.6 Total Bilirubin 0.40 AST 22 ALT 21 Alkaline Phosphatase 54 Total Protein 7.0 Albumin 3.4 Globulin 3.6 Albumin/Globulin Ratio 0.9 Creatinine is slightly elevated 1.08. GFR is 52. Electrolytes are otherwise unremarkable. BUN is 23. BUN/creatinine ratio is slightly elevated at 21.3. - Medical Decision Making He was treated with antiemetic and opiate analgesia for her nausea/vomiting and pain. She was given fluid bolus and she has history of acute kidney injury and with her core morbidities. Blood work reveals dehydration without acute kidney injury. Creatinine on August 14 to the and was 1.45. Patient passed p.o. challenge. Patient was reassessed at 051. She has had no vomiting after antiemetic. She reports feeling better and she looks better. ED Disposition - Plan for ED Patient: Disposition: Home or Assisted Living Diagnosis: Abdominal pain, vomiting, and diarrhea, Mild dehydration, Elevated serum creatinine, History of diabetes mellitus, Hypertension Prescriptions: Ondansetron [Zofran Odt] 4 mg PO Q8H PRN PRN #5 tablet PRN Reason: Nausea Prescription Printed Referrals: Sukhjinder Garcia MD [Primary Care Provider] - 1-2 Days if not improving
[2020-10-18] MEDS: Ondansetron 4 MG/2 ML Vial IV (23:11)
[2020-10-18] MEDS: 0.9% Normal Saline 1,000 ML 1000 ML IV (23:11)
[2020-10-18 23:30] LABS: ALB/GLOB Ratio 0.9 RATIO (0.9-2.4); AST(SGOT) 22 U/L (15-37); Alanine Aminotransfer ALT/SGPT 21 U/L (13-56); Albumin, Serum 3.4 g/dL (3.2-5.0); Alkaline Phosphatase 54 U/L (45-117); Anion Gap 5 (5-15); BUN 23 mg/dL (7-18); BUN/Creat Ratio 21.3 RATIO (10-20); Calcium,Total 8.6 mg/dL (8.5-10.1); Chloride 106 mmol/L (98-107); Creatinine, Serum 1.08 mg/dL (0.55-1.02); EST Glomerular Filtration Rate 52 mL/min (>60); Est Glom Filt Rate - Afr Amer 63 mL/min (>60); Estimated Creatinine Clearance 31.35 ml/min; Globulin 3.6 g/dL (2.2-4.2); Glucose 104 mg/dL (74-106); Sodium Level 136 mmol/L (136-145)
[2020-10-19 00:27] VITALS: BP 164/73; PULSE 99; RESP 15; O2SAT 98
--- NOTE | 2020-10-19 00:52 | ED.DCSUM_ITS ---
- ER Visit Summary Date of Service: 10/19/20 Chief Complaint: [] History of Present Illness: The patient is a 80 F [] Physical Examination: [] Test Results: [] Emergency Department Course and Treatment: [] Treatment Plan: [] Disposition: [] Impression: [] This note was generated with [employer] dictation software. It may contain incorrect words, spelling, and punctuation that were not noted in review of the chart prior to signing ED Disposition - Plan for ED Patient: Disposition: Home or Assisted Living Diagnosis: Abdominal pain, vomiting, and diarrhea, Mild dehydration, Elevated serum creatinine, History of diabetes mellitus, Hypertension Instructions: ED Vomiting and Diarrhea ... Prescriptions: Ondansetron [Zofran Odt] 4 mg PO Q8H PRN PRN #5 tablet PRN Reason: Nausea Prescription Printed Referrals: Sukhjinder Garcia MD [Primary Care Provider] - 1-2 Days if not improving
== END 2020-10-19 01:14 | disposition home or self-care (01) ==
PROVIDERS: Emergency Provider Emergency Medicine; PCP Family Medicine
DX: E86.0 Dehydration (principal); R11.2 Nausea with vomiting, unspecified; E11.9 Type 2 diabetes mellitus without complications; I10 Essential (primary) hypertension; R10.9 Unspecified abdominal pain; R19.7 Diarrhea, unspecified; R79.89 Other specified abnormal findings of blood chemistry; Z79.899 Other long term (current) drug therapy; Z79.84 Long term (current) use of oral hypoglycemic drugs
CPT/HCPCS: 80048; 80053; 96361; 96374; 99282; J7030; A4216; J2405

== ENCOUNTER 2021-05-29 00:16 | Emergency (ER) | payer MEDICARE, OTHER, SELFPAY ==
[2021-05-29 00:17] VITALS: PULSE 85; RESP 18; TEMP 36.8; O2SAT 95; BMI 33.4
[2021-05-29] MEDS: Glucose Oral Gel 15 GM Tube PO (00:24)
[2021-05-29 00:31] VITALS: BP 161/52
[2021-05-29 00:42] LABS: Absolute Lymphocyte Count 1.49 X10^3/uL (0.83-4.51); Basophil# 0.03 X10^3/uL; Basophil% 0.3 % (0-1); Eosinophil# 0.15 X10^3/uL; Eosinophils% 1.6 % (0-5); Hematocrit 41.3 % (37-47); Hemoglobin 13.3 g/dL (12.0-15.0); Lymphocyte # 1.49 X10^3/ul (0.83-4.51); Mean Corp Hgb Conc 32.2 g/dL (32-36); Mean Corpuscular Hgb 29.8 pg (27.0-32.0); Mean Corpuscular Volume 92.4 fL (81-99); Mean Platelet Vol. 11.2 fl (6.2-12.0); Monocyte# 0.63 X10^3/uL; Monocyte% 6.8 % (0-10); NRBC Flagged by Analyzer 0 % (0-5); Neutrophil % 75.1 % (47-70); Platelet Count 200 K/mm3 (150-450); RBC Distribution Width CV 14.6 % (11.6-14.6); Red Blood Count 4.47 M/mm3 (4.2-5.4); White Blood Count 9.3 K/mm3 (4.4-11.0)
[2021-05-29] MEDS: Dextrose 50%-Water 25 GM/50 ML DISP.SYRIN IV (00:49)
--- NOTE | 2021-05-29 00:53 | EDS_ITS ---
HPI History of Present Illness Chief Complaint: Hypoglycemia Narrative Narrative: Patient presenting with hyperglycemia which started tonight. She states she had a stressful evening on slide and initially attributes it to this. Patient is only glimepiride for her diabetes. She also states that she had a get up and go infusion yesterday. She is not sure what is in it. She is not had 1 before. She states it is for her diet and to give her vitamins. She believes it mostly what is in it is vitamins. She states she initially felt jittery and that her blood sugar got down to 40s. She drank some orange juice on the way and ate some brown sugar out of her cupboard. She currently feels better. [facility] Medical History Diabetes History of kidney stones HTN (hypertension) Home Medications fish oil-dha-epa 1 ea PO BID 11/06/15 [History Last Taken 03/21/20] glimepiride 4 mg PO DAILY 11/06/15 [History Last Taken 03/21/20] lisinopril 5 mg PO DAILY 11/06/15 [History Last Taken 03/21/20] Cholecalciferol (Vitamin D3) [Vitamin D3] 5,000 unit PO DAILY 03/21/20 [History Last Taken 03/21/20] garlic 1,000 mg PO DAILY 03/21/20 [History Last Taken 03/21/20] turmeric root extract 500 mg PO DAILY 03/21/20 [History Last Taken 03/20/20] pindolol 5 mg PO DAILY 03/22/20 [History Last Taken Unknown] ascorbic acid (vitamin C) 500 mg PO DAILY 08/14/20 [History Last Taken Unknown] Allergy/AdvReac Type Severity Reaction Status Date / Time diphenhydramine HCl AdvReac Other Verified 05/29/21 00:23 [From Benadryl] SLEEPING PILL AdvReac Other Uncoded 05/29/21 00:23 Social History Smoking Status: Never smoker ROS ROS ED Constitutional Constitutional ED: Denies chills, fever(s) or sweats Eyes Eyes: Denies blurry vision or change in vision ENT ENT ED: Denies ear pain, rhinorrhea or sore throat Cardiovascular Cardiovascular: Denies chest pain, palpitations or racing heartbeat Respiratory/Chest Respiratory/Chest: Denies cough, dyspnea or sputum Gastrointestinal Gastrointestinal: Denies abdominal pain, constipation, diarrhea or vomiting Genitourinary Genitourinary ED: Denies dysuria, hematuria or urinary frequency Musculoskeletal Musculoskeletal: Denies arthralgias, myalgias or neck pain Integumentary Denies abscess, Abrasions or rash Neurologic Neurologic: Denies headache(s), paresthesias or weakness Psychiatric Psychiatric: Denies anxiety, depression, suicidal ideation or suicidal thoughts Endocrine Endocrinology: Denies polydipsia or polyuria EXAM Physical Exam Const Vital Signs: 05/29/21 00:17 05/29/21 00:31 05/29/21 00:32 Temperature 98.3 F Temperature Source Oral Pulse Rate 85 Respiratory Rate 18 Respiratory Effort Normal Non-Labored Blood Pressure 161/52 H Blood Pressure Mean 88 Pulse Ox 95 Oxygen Delivery Method Room Air General Appearance ED: active and cooperative; Negative for pallor HEENT Reports normocephalic, head/scalp atraumatic and moist mucous membranes Eyes PERRL and EOMs intact bilaterally Neck no lymphadenopathy and supple Resp normal respiratory effort and clear to auscultation bilaterally Auscultation: wheezes Cardio regular rate and regular rhythm Narrative: Deferred Extremity normal to inspection Neuro oriented x3 and CN's II-XII intact bilaterally Sensorium / Orientation: alert Motor Exam: strength 5/5 throughout Psych mental status grossly normal Attitude: No agitated Skin no rashes or lesions noted and no wounds General Skin Exam: Negative for jaundice or pallor MDM MDM MDM Narrative Medical decision making narrative: Patient present with hypoglycemia. She is had a blood sugar checked multiple times here in the ER. She initially drank orange juice and ate brown sugar on the way to the ER. She had peanut butter and some other food. Her initially her blood sugars were staying in the 40s. She was given an amp of D50 and after this her blood sugars did rebound and now she is in the 150s to 170s. Her CBC shows no leukocytosis and her H&H are stable. Creatinine is slightly bumped at 1.56. Since her blood sugars are improving I feel she is safe to be discharged home. She will follow up with her primary care physician to ensure resolution. I am not sure if this get up and go infusion is the source of her problem. She is to discuss with her primary care. Impression: 1. Hyperglycemia Lab Data Labs: Laboratory Results - last 24 hr 05/29/21 05/29/21 00:30 00:30 WBC 9.3 RBC 4.47 Hgb 13.3 Hct 41.3 MCV 92.4 MCH 29.8 MCHC 32.2 RDW Std Deviation 49.0 H RDW Coeff of Angelina 14.6 Plt Count 200 MPV 11.2 Immature Gran % (Auto) 0.200 Neut % (Auto) 75.1 H Lymph % (Auto) 16.0 L Bonner % (Auto) 6.8 Eos % (Auto) 1.6 Baso % (Auto) 0.3 Absolute Neuts (auto) 7.0 Absolute Lymphs (auto) 1.49 Nucleated RBC % 0 Sodium 140 Potassium 4.2 Chloride 107 Carbon Dioxide 25.0 Anion Gap 8 BUN 38 H Creatinine 1.56 H Estim Creat Clear Calc 21.34 Est GFR (MDRD) Af Amer 41 L Est GFR (MDRD) Non-Af 34 L BUN/Creatinine Ratio 24.4 H Glucose 42 L* Calcium 9.7 Discharge Plan Triage Chief Complaint: Hypoglycemia ED Provider: Calin Garcia Dx/Rx/DC Orders Instructions: Hypoglycemia (Low Blood Sugar) Prescriptions: No Action glimepiride 4 MG tablet 4 mg PO DAILY RF: 0 lisinopril 5 MG tablet 5 mg PO DAILY RF: 0 fish oil-dha-epa 1 EACH capsule 1 ea PO BID RF: 0 garlic 1,000 MG capsule 1,000 mg PO DAILY RF: 0 turmeric root extract 500 MG capsule 500 mg PO DAILY RF: 0 Cholecalciferol (Vitamin D3) [Vitamin D3] 5,000 UNIT capsule 5,000 unit PO DAILY RF: 0 pindolol 5 mg tablet 5 mg PO DAILY RF: 0 ascorbic acid (vitamin C) 500 MG tablet 500 mg PO DAILY RF: 0 Primary Care Provider: Sukhjinder Garcia Referrals: Sukhjinder Garcia MD [Primary Care Provider] - Disposition Disposition: Home, Self Care
[2021-05-29 01:25] LABS: Anion Gap 8 (5-15); BUN 38 mg/dL (7-18); BUN/Creat Ratio 24.4 RATIO (10-20); Calcium,Total 9.7 mg/dL (8.5-10.1); Chloride 107 mmol/L (98-107); Creatinine, Serum 1.56 mg/dL (0.55-1.02); EST Glomerular Filtration Rate 34 mL/min (>60); Est Glom Filt Rate - Afr Amer 41 mL/min (>60); Estimated Creatinine Clearance 21.34 ml/min; Glucose 42 mg/dL (74-106); Potassium 4.2 mmol/L (3.5-5.1); Sodium Level 140 mmol/L (136-145)
[2021-05-29 02:03] VITALS: BP 162/89; RESP 16; O2SAT 97
[2021-05-29 02:06] LABS: Bedside Glucose 43 mg/dL (70-110)
[2021-05-29 02:06] LABS: Bedside Glucose 179 mg/dL (70-110)
[2021-05-29 02:06] LABS: Bedside Glucose 30 mg/dL (70-110)
[2021-05-29 02:06] LABS: Bedside Glucose 141 mg/dL (70-110)
== END 2021-05-29 02:04 | disposition home or self-care (01) ==
PROVIDERS: Emergency Provider Student in an Organized Health Care Education/Training Program; PCP Family Medicine
DX: E11.65 Type 2 diabetes mellitus with hyperglycemia (principal); I10 Essential (primary) hypertension; Z79.84 Long term (current) use of oral hypoglycemic drugs; Z79.899 Other long term (current) drug therapy
CPT/HCPCS: 80048; 82962; 85025; 96374; 99283; A4216

== ENCOUNTER 2021-07-13 16:57 | Emergency (ER) | payer MEDICARE, OTHER, SELFPAY ==
[2021-07-13 16:58] VITALS: BP 175/76; PULSE 74; RESP 32; TEMP 36.7; O2SAT 95; BMI 34.2
--- NOTE | 2021-07-13 17:14 | EKG12_ITS ---
Test Reason : SOB Blood Pressure : / mmHG Vent. Rate : 066 BPM Atrial Rate : 066 BPM P-R Int : 160 ms QRS Dur : 090 ms QT Int : 394 ms P-R-T Axes : 056 -02 036 degrees QTc Int : 413 ms Normal sinus rhythm Inferior infarct , age undetermined ,CANNOT BE EXCLUDED Abnormal ECG Confirmed by IRAIDA ROWLAND, RADHA ([id number]), slot editor JOSEY YUEN ([id number]) on 07/17/2021 10:04:24 AM Referred By: TIANA Confirmed By:RADHA KHOURY MD
--- NOTE | 2021-07-13 17:15 | EDS_ITS ---
HPI HPI - URI History of Present Illness Chief Complaint: Shortness of Breath Informant: patient Narrative Narrative: Patient presents with some dyspnea. She states she was checked for Covid about 2 weeks ago and it was negative. It takes quite a bit of questioning to get the sequence of events from this patient. About 2 weeks ago she had a couple episodes of diarrhea so she got tested for Covid. It sounds like she had no other symptoms. Somewhere between 5 days in a week ago she got some cough with nasal congestion. She has had some slight myalgias. Possibly subjective fevers but never positive elevated temperature. No chest pain. No sputum production. She still has some intermittent diarrhea. But no nausea and vomiting. She was started on an unknown antibiotic somewhere in the last week by her family doctor for this. No urinary symptoms. Nothing really makes symptoms better or worse. She states she just feels a little bit short of breath like it is hard to catch her breath at times. No history of DVT or PE. No travel. No leg swelling or pain. ROS ROS ED Constitutional Constitutional ED: Reports subjective; Denies chills or fever(s) Eyes Eyes: Denies blurry vision ENT ENT ED: Reports rhinorrhea; Denies sore throat Cardiovascular Cardiovascular: Denies chest pain or palpitations Respiratory/Chest Respiratory/Chest: Reports cough and dyspnea; Denies sputum Gastrointestinal Gastrointestinal: Reports diarrhea; Denies abdominal pain, nausea or vomiting Genitourinary Genitourinary ED: Denies dysuria Musculoskeletal Musculoskeletal: Reports myalgias Integumentary Denies rash Neurologic Neurologic: Denies headache(s) or weakness Psychiatric Psychiatric: Denies anxiety Endocrine Endocrinology: Denies polydipsia or polyuria Hematologic/Lymphatic Hematologic/Lymphatic: Denies easy bleeding or easy bruising Allergic/Immunologic Allergic/Immunologic ED: Denies mouth swelling or urticaria [facility] Medical History Diabetes History of kidney stones HTN (hypertension) Home Medications fish oil-dha-epa 1 ea PO BID 11/06/15 [History Last Taken 03/21/20] glimepiride 4 mg PO DAILY 11/06/15 [History Last Taken 03/21/20] lisinopril 5 mg PO DAILY 11/06/15 [History Last Taken 03/21/20] Cholecalciferol (Vitamin D3) [Vitamin D3] 5,000 unit PO DAILY 03/21/20 [History Last Taken 03/21/20] garlic 1,000 mg PO DAILY 03/21/20 [History Last Taken 03/21/20] turmeric root extract 500 mg PO DAILY 03/21/20 [History Last Taken 03/20/20] pindolol 5 mg PO DAILY 03/22/20 [History Last Taken Unknown] ascorbic acid (vitamin C) 500 mg PO DAILY 08/14/20 [History Last Taken Unknown] albuterol sulfate [Ventolin HFA] 2 puff INHALATION Q4H PRN PRN #1 inhaler 07/13/21 [Rx Last Taken Unknown] Allergy/AdvReac Type Severity Reaction Status Date / Time diphenhydramine HCl AdvReac Other Verified 07/13/21 17:00 [From Benadryl] SLEEPING PILL AdvReac Other Uncoded 07/13/21 17:00 Social History Smoking Status: Never smoker EXAM Physical Exam Const Vital Signs: 07/13/21 16:58 07/13/21 17:49 Temperature 98.0 F Temperature Source Temporal Pulse Rate 74 Respiratory Rate 32 H Respiratory Effort Normal Respiratory Depth Normal Respiratory Pattern Normal Blood Pressure 175/76 H Blood Pressure Mean 109 Pulse Ox 95 Oxygen Delivery Method Room Air Positive well nourished and well developed General Appearance ED: well developed and NAD; Negative for pallor HEENT normocephalic and atraumatic Eyes EOMs intact bilaterally Neck supple and no meningeal signs Resp normal respiratory effort Resp Narrative: I will do bilateral rhonchi. No wheezes. No rales. No pain with a deep breath. Auscultation: rhonchi; Negative for rales or wheezes Cardio no murmurs Rate: regular rate Rhythm: regular rhythm GI non-tender Palpation: soft Back/Spine no CVA tenderness Extremity normal to inspection Neuro oriented x3 Sensorium / Orientation: alert Psych mental status grossly normal Skin General Skin Exam: Negative for jaundice or pallor Lesions: no lesions Rashes: no rashes MDM MDM MDM Narrative Medical decision making narrative: Patient has normal CBC. Electrolytes are overall unremarkable. Minimal increase in BUN and creatinine. Glucose is also elevated at 250. Troponin is negative. Chest x-ray shows no acute process. O2 saturation ambulating was about 94 5%. Under the notes that said no under did she tolerated. However when I talked to the patient see she said she felt fine walking around. I will get her set up for monoclonal therapy. I will write for albuterol to see if this helps her. I did discuss with her reasons to return. She is comfortable going home. Covid is positive. Lab Data Attestation: I reviewed the patient's lab results. Labs: Laboratory Results - last 24 hr 07/13/21 07/13/21 17:30 17:30 WBC 5.3 RBC 4.06 L Hgb 12.0 Hct 36.6 L MCV 90.1 MCH 29.6 MCHC 32.8 RDW Std Deviation 47.2 H RDW Coeff of Angelina 14.2 Plt Count 169 MPV 10.3 Immature Gran % (Auto) 0.400 Neut % (Auto) 66.8 Lymph % (Auto) 24.5 [place] % (Auto) 7.7 Eos % (Auto) 0.4 Baso % (Auto) 0.2 Absolute Neuts (auto) 3.5 Absolute Lymphs (auto) 1.30 Nucleated RBC % 0 Sodium 133 L Potassium 4.5 Chloride 100 Carbon Dioxide 24.0 Anion Gap 9 BUN 30 H Creatinine 1.25 H Estim Creat Clear Calc 26.64 Est GFR (MDRD) Af Amer 53 L Est GFR (MDRD) Non-Af 44 L BUN/Creatinine Ratio 24.0 H Glucose 250 H Calcium 8.9 Troponin I High Sens 12 Radiography Diagnostic Testing: Clinical Impression(s) from Imaging Studies Chest X-Ray 07/13/21 18:10 IMPRESSION: Nonacute portable x-ray examination of the chest. Electronically Signed: Silver Aleman MD (Brooks) at 18:40 EST , Service support , EKG Initial EKG: Comments: EKG done for dyspnea read by me shows normal sinus rhythm with overall rate of 66. Mild nonspecific changes but no sign of ST elevation or depression. MO interval, QRS duration and QTc normal. No ectopy. Discharge Plan Triage Chief Complaint: Shortness of Breath ED Provider: Deven Feliciano Dx/Rx/DC Orders Clinical Impression: COVID Instructions: Coronavirus Disease 2019 (COVID-19): Caring for Yourself or Others Prescriptions: New albuterol sulfate [Ventolin HFA] 1 INHALER inhaler 2 puff inhalation Q4H PRN PRN (Reason: Wheezing) Qty: 1 RF: 0 No Action glimepiride 4 MG tablet 4 mg PO DAILY RF: 0 lisinopril 5 MG tablet 5 mg PO DAILY RF: 0 fish oil-dha-epa 1 EACH capsule 1 ea PO BID RF: 0 garlic 1,000 MG capsule 1,000 mg PO DAILY RF: 0 turmeric root extract 500 MG capsule 500 mg PO DAILY RF: 0 Cholecalciferol (Vitamin D3) [Vitamin D3] 5,000 UNIT capsule 5,000 unit PO DAILY RF: 0 pindolol 5 mg tablet 5 mg PO DAILY RF: 0 ascorbic acid (vitamin C) 500 MG tablet 500 mg PO DAILY RF: 0 Primary Care Provider: Sukhjinder Garcia Referrals: Sukhjinder Garcia MD [Primary Care Provider] - 1 Week if not improving Disposition Disposition: Home, Self Care
[2021-07-13 17:39] LABS: Absolute Neutrophil Count 3.5 X10^3/uL (2.0-7.7); Basophil# 0.01 X10^3/uL; Basophil% 0.2 % (0-1); Eosinophil# 0.02 X10^3/uL; Eosinophils% 0.4 % (0-5); Hematocrit 36.6 % (37-47); Lymphocyte % 24.5 % (19-41); Mean Corp Hgb Conc 32.8 g/dL (32-36); Mean Corpuscular Hgb 29.6 pg (27.0-32.0); Mean Corpuscular Volume 90.1 fL (81-99); Mean Platelet Vol. 10.3 fl (6.2-12.0); Monocyte# 0.41 X10^3/uL; Monocyte% 7.7 % (0-10); NRBC Flagged by Analyzer 0 % (0-5); Neutrophil # 3.54 X10^3/uL (2.7-7.7); Neutrophil % 66.8 % (47-70); Platelet Count 169 K/mm3 (150-450); RBC Distribution Width CV 14.2 % (11.6-14.6); RBC Distribution Width SD 47.2 fl (35.1-43.9); Red Blood Count 4.06 M/mm3 (4.2-5.4); White Blood Count 5.3 K/mm3 (4.4-11.0)
[2021-07-13 17:49] VITALS: O2SAT 96
--- NOTE | 2021-07-13 18:10 | RAD_ITS ---
STUDY: X-RAY CHEST REASON FOR EXAM: Female, 81 years old. cough TECHNIQUE: AP COMPARISON: 08/14/2020 FINDINGS: EKG leads project over the chest. No airspace consolidation or pleural effusion. There is no demonstrated pleural abnormality. Normal size heart. Normal mediastinum and eleuterio. Normal visualized pulmonary arteries. There is atherosclerotic calcification of the aortic arch with tortuosity. There is demineralization of the osseous structures. There is degenerative osteoarthritis of the bilateral shoulders. There is no demonstrated abnormality of the visualized soft tissue structures of the upper abdomen. RAD/Chest 1 View (Portable) IMPRESSION: Nonacute portable x-ray examination of the chest. Electronically Signed: Silver Aleman MD (Brooks) at 18:40 EST , Service support ,
[2021-07-13 18:31] LABS: Anion Gap 9 (5-15); BUN 30 mg/dL (7-18); Calcium,Total 8.9 mg/dL (8.5-10.1); Chloride 100 mmol/L (98-107); Creatinine, Serum 1.25 mg/dL (0.55-1.02); EST Glomerular Filtration Rate 44 mL/min (>60); Est Glom Filt Rate - Afr Amer 53 mL/min (>60); Estimated Creatinine Clearance 26.64 ml/min; Glucose 250 mg/dL (74-106); Potassium 4.5 mmol/L (3.5-5.1); Sodium Level 133 mmol/L (136-145); Troponin-I HS 12 pg/mL (3.0-54.0)
[2021-07-13 18:54] VITALS: O2SAT 96
[2021-07-13 19:06] VITALS: BP 156/86; PULSE 67; RESP 18; O2SAT 99
== END 2021-07-13 19:10 | disposition home or self-care (01) ==
PROVIDERS: Emergency Provider Emergency Medicine; PCP Family Medicine
DX: U07.1 COVID-19 (principal); Z79.899 Other long term (current) drug therapy; I10 Essential (primary) hypertension; E11.9 Type 2 diabetes mellitus without complications; Z79.84 Long term (current) use of oral hypoglycemic drugs
CPT/HCPCS: 71045; 80048; 84484; 85025; 87426; 93005; 99284; A4216

== ENCOUNTER 2021-07-14 07:31 | Emergency (ER) | payer MEDICARE, OTHER, SELFPAY ==
[2021-07-14 07:32] VITALS: BP 179/72; PULSE 74; RESP 20; TEMP 37.3; O2SAT 99; BMI 35.9
--- NOTE | 2021-07-14 07:53 | ED.VIS.DYS ---
HPI History of Present Illness Chief Complaint: Shortness of Breath Informant: patient Onset/Context/Timing Onset: Yesterday Context: gradual Timing: Continuous Quality: Positive for - (Cannot get enough air) Worsened by: Nothing Relieved by: Nothing Associated Symptoms Negative for cough, rhinorrhea, ear pain, fever, sore throat or chills Chest Pain: Positive for None Narrative Narrative: Patient presents with shortness of breath that began yesterday. Patient states it is gradually gotten worse today. Patient was seen here yesterday and diagnosed with COVID-19. Patient's oxygen saturations yesterday were 94-95 after ambulating. Patient states that today she feels like she cannot get enough air in her lungs. Patient states nothing makes it worse and nothing makes it better. Patient denies any cough. Patient denies any fevers or chills. Patient denies any chest pain. [facility] Medical History Diabetes History of kidney stones HTN (hypertension) Home Medications fish oil-dha-epa 1 ea PO BID 11/06/15 [History Last Taken 03/21/20] glimepiride 4 mg PO DAILY 11/06/15 [History Last Taken 03/21/20] lisinopril 5 mg PO DAILY 11/06/15 [History Last Taken 03/21/20] Cholecalciferol (Vitamin D3) [Vitamin D3] 5,000 unit PO DAILY 03/21/20 [History Last Taken 03/21/20] garlic 1,000 mg PO DAILY 03/21/20 [History Last Taken 03/21/20] turmeric root extract 500 mg PO DAILY 03/21/20 [History Last Taken 03/20/20] pindolol 5 mg PO DAILY 03/22/20 [History Last Taken Unknown] ascorbic acid (vitamin C) 500 mg PO DAILY 08/14/20 [History Last Taken Unknown] albuterol sulfate [Ventolin HFA] 2 puff INHALATION Q4H PRN PRN #1 inhaler 07/13/21 [Rx Last Taken Unknown] Allergy/AdvReac Type Severity Reaction Status Date / Time diphenhydramine HCl AdvReac Other Verified 07/13/21 17:00 [From Benadryl] SLEEPING PILL AdvReac Other Uncoded 07/13/21 17:00 Surgical History no surgical history no surgical history Social History Smoking Status: Never smoker ROS ROS ED Constitutional Constitutional ED: Denies chills or fever(s) Eyes Eyes: Denies blurry vision or change in vision ENT ENT ED: Denies rhinorrhea or sore throat Cardiovascular Cardiovascular: Denies chest pain or palpitations Respiratory/Chest Respiratory/Chest: Reports dyspnea; Denies cough or sputum Gastrointestinal Gastrointestinal: Denies nausea or vomiting Genitourinary Genitourinary ED: Denies dysuria or hematuria Musculoskeletal Musculoskeletal: Denies back pain or neck pain Integumentary Denies abscess or rash Neurologic Neurologic: Denies headache(s) or weakness Allergic/Immunologic Allergic/Immunologic ED: Denies mouth swelling or urticaria EXAM Physical Exam Const Vital Signs: 07/14/21 07:32 07/14/21 08:10 Temperature 99.1 F 99.1 F Temperature Source Oral Oral Pulse Rate 74 74 Respiratory Rate 20 H 21 H Respiratory Effort Short of Breath Respiratory Depth Normal Respiratory Pattern Normal Blood Pressure 179/72 H 163/77 H Blood Pressure Mean 107 105 Pulse Ox 99 99 Oxygen Delivery Method Room Air Room Air Positive well nourished and well developed General Appearance ED: well developed and NAD HEENT Reports moist mucous membranes Neck supple and no JVD Resp normal respiratory effort and clear to auscultation bilaterally Cardio regular rate, regular rhythm and no murmurs GI normal to inspection, nondistended, normoactive bowel sounds and non-tender Palpation: soft Extremity normal to inspection General Extremety ED: Negative for edema or tenderness General Extremity: Negative for edema Neuro oriented x3, CN's II-XII intact bilaterally and no sensory deficits noted Sensorium / Orientation: alert Motor Exam: strength 5/5 throughout Psych mental status grossly normal Skin no rashes or lesions noted MDM MDM MDM Narrative Medical decision making narrative: Portable 1 view chest x-ray was obtained. On my interpretation, lung love are clear. There is normal cardiac silhouette. Bony thorax is normal. There is no acute process noted. Radiologist also interpreted the x-ray and agrees. CBC and comprehensive metabolic profile were obtained and were within normal limits. Patient was given 4 puffs of albuterol inhaler here. Patient was advised of her findings. Patient is feeling better on reevaluation. Patient was instructed to continue the inhaler as needed. Patient was instructed to follow-up with her monoclonal antibody infusion as scheduled. Patient was instructed to return if worse in any way. Patient understood and was agreeable with the plan. All questions were answered. Lab Data Attestation: I reviewed the patient's lab results. Labs: Laboratory Results - last 24 hr 07/14/21 07/14/21 07/14/21 08:05 08:05 08:05 WBC 7.3 RBC 4.21 Hgb 12.5 Hct 37.7 MCV 89.5 MCH 29.7 MCHC 33.2 RDW Std Deviation 46.7 H RDW Coeff of Angelina 14.2 Plt Count 182 MPV 10.3 Immature Gran % (Auto) 0.500 Neut % (Auto) 71.9 H Lymph % (Auto) 18.5 L [place] % (Auto) 8.3 Eos % (Auto) 0.5 Baso % (Auto) 0.3 Absolute Neuts (auto) 5.3 Absolute Lymphs (auto) 1.36 Nucleated RBC % 0 D-Dimer Quant (PE/DVT) 0.79 H* Sodium 135 L Potassium 4.5 Chloride 102 Carbon Dioxide 24.0 Anion Gap 9 BUN 22 H Creatinine 1.17 H Estim Creat Clear Calc 27.09 Est GFR (MDRD) Af Amer 57 L Est GFR (MDRD) Non-Af 47 L BUN/Creatinine Ratio 18.8 Glucose 160 H Calcium 9.5 Total Bilirubin 0.50 AST 20 ALT 22 Alkaline Phosphatase 71 Total Protein 7.8 Albumin 3.3 Globulin 4.5 H Albumin/Globulin Ratio 0.7 L Radiography Chest X-Ray - ED: 1 View, Read by ED Physician, Read by Radiologist and Normal Diagnostic Testing: Clinical Impression(s) from Imaging Studies Chest X-Ray 07/14/21 08:25 IMPRESSION: Normal x-ray examination of the chest. Electronically Signed: Sean Ma DO at 8:40 EST Tel [phone], Service support , Discharge Plan Triage Chief Complaint: Shortness of Breath ED Provider: Speedy Lopez Dx/Rx/DC Orders Clinical Impression: COVID Instructions: Coronavirus Disease 2019 (COVID-19): Overview, Coronavirus Disease 2019 (COVID-19): Caring for Yourself or Others Prescriptions: No Action glimepiride 4 MG tablet 4 mg PO DAILY RF: 0 lisinopril 5 MG tablet 5 mg PO DAILY RF: 0 fish oil-dha-epa 1 EACH capsule 1 ea PO BID RF: 0 garlic 1,000 MG capsule 1,000 mg PO DAILY RF: 0 turmeric root extract 500 MG capsule 500 mg PO DAILY RF: 0 Cholecalciferol (Vitamin D3) [Vitamin D3] 5,000 UNIT capsule 5,000 unit PO DAILY RF: 0 pindolol 5 mg tablet 5 mg PO DAILY RF: 0 ascorbic acid (vitamin C) 500 MG tablet 500 mg PO DAILY RF: 0 albuterol sulfate [Ventolin HFA] 1 INHALER inhaler 2 puff inhalation Q4H PRN PRN (Reason: Wheezing) Qty: 1 RF: 0 Primary Care Provider: Sukhjinder Garcia Referrals: Sukhjinder Garcia MD [Primary Care Provider] - 3-5 Days Disposition Disposition: Home, Self Care
[2021-07-14 08:10] VITALS: BP 163/77; PULSE 74; RESP 21; TEMP 37.3; O2SAT 99
[2021-07-14 08:18] LABS: Absolute Lymphocyte Count 1.36 X10^3/uL (0.83-4.51); Absolute Neutrophil Count 5.3 X10^3/uL (2.0-7.7); Basophil# 0.02 X10^3/uL; Basophil% 0.3 % (0-1); Eosinophil# 0.04 X10^3/uL; Eosinophils% 0.5 % (0-5); Hematocrit 37.7 % (37-47); Hemoglobin 12.5 g/dL (12.0-15.0); Lymphocyte # 1.36 X10^3/ul (0.83-4.51); Lymphocyte % 18.5 % (19-41); Mean Corp Hgb Conc 33.2 g/dL (32-36); Mean Corpuscular Hgb 29.7 pg (27.0-32.0); Mean Corpuscular Volume 89.5 fL (81-99); Mean Platelet Vol. 10.3 fl (6.2-12.0); Monocyte# 0.61 X10^3/uL; Monocyte% 8.3 % (0-10); NRBC Flagged by Analyzer 0 % (0-5); Neutrophil # 5.27 X10^3/uL (2.7-7.7); Neutrophil % 71.9 % (47-70); Platelet Count 182 K/mm3 (150-450); RBC Distribution Width CV 14.2 % (11.6-14.6); RBC Distribution Width SD 46.7 fl (35.1-43.9); Red Blood Count 4.21 M/mm3 (4.2-5.4); White Blood Count 7.3 K/mm3 (4.4-11.0)
--- NOTE | 2021-07-14 08:25 | RAD_ITS ---
STUDY: X-RAY CHEST REASON FOR EXAM: Female, 81 years old. Cough TECHNIQUE: Frontal view COMPARISON: 07/13/2021 FINDINGS: The lungs are clear and expanded. There is no demonstrated pleural abnormality. Normal size heart. Normal mediastinum and eleuterio. Normal visualized pulmonary arteries. Normal visualized aortic arch and descending thoracic aorta. Normal visualized thoracic spine. Normal visualized ribs, clavicles, and shoulders. There is no demonstrated abnormality of the visualized soft tissue structures of the upper abdomen. RAD/Chest 1 View (Portable) IMPRESSION: Normal x-ray examination of the chest. Electronically Signed: Sean Ma DO at 8:40 EST Tel [phone], Service support ,
[2021-07-14 08:29] LABS: ALB/GLOB Ratio 0.7 RATIO (0.9-2.4); AST(SGOT) 20 U/L (15-37); Alanine Aminotransfer ALT/SGPT 22 U/L (13-56); Albumin, Serum 3.3 g/dL (3.2-5.0); Alkaline Phosphatase 71 U/L (45-117); Anion Gap 9 (5-15); BUN 22 mg/dL (7-18); BUN/Creat Ratio 18.8 RATIO (10-20); Calcium,Total 9.5 mg/dL (8.5-10.1); Chloride 102 mmol/L (98-107); Creatinine, Serum 1.17 mg/dL (0.55-1.02); EST Glomerular Filtration Rate 47 mL/min (>60); Est Glom Filt Rate - Afr Amer 57 mL/min (>60); Estimated Creatinine Clearance 27.09 ml/min; Globulin 4.5 g/dL (2.2-4.2); Glucose 160 mg/dL (74-106); Potassium 4.5 mmol/L (3.5-5.1); Protein, Total 7.8 g/dL (6.4-8.2); Sodium Level 135 mmol/L (136-145)
[2021-07-14 08:32] LABS: D-Dimer Quantitative (DVT/PE) 0.79 FEU/ug/m (0.27-0.49)
[2021-07-14] MEDS: Lisinopril 5 MG Tablet PO (09:35)
== END 2021-07-14 09:45 | disposition home or self-care (01) ==
PROVIDERS: Emergency Provider Emergency Medicine; PCP Family Medicine; Visit Provider Emergency Medicine
DX: U07.1 COVID-19 (principal); E11.9 Type 2 diabetes mellitus without complications; I10 Essential (primary) hypertension; Z79.84 Long term (current) use of oral hypoglycemic drugs; Z79.899 Other long term (current) drug therapy
CPT/HCPCS: 71045; 80053; 85025; 85379; 94640; 99285; A4216

== ENCOUNTER 2021-07-15 10:07 | Outpatient (CLI) | payer MEDICARE, OTHER, SELFPAY ==
[2021-07-15 10:19] VITALS: BP 156/77; PULSE 64; RESP 18; TEMP 37.4; O2SAT 99; BMI 35.3
[2021-07-15] MEDS: 0.9% Saline Lock 10 ML Syringe IV (10:21)
[2021-07-15 11:02] VITALS: BP 147/65; PULSE 61; RESP 16; TEMP 37.3; O2SAT 100
[2021-07-15 11:59] VITALS: BP 160/66; PULSE 62; RESP 16; TEMP 36.8; O2SAT 99
== END 2021-07-15 23:59 | disposition home or self-care (01) ==
LOC: MS3OUT 10:08 → MS3 10:09
PROVIDERS: PCP Family Medicine; Visit Provider Emergency Medicine
DX: U07.1 COVID-19 (principal)
CPT/HCPCS: J7050; M0243; A4216; Q0244

== ENCOUNTER 2021-07-17 08:49 | Emergency (ER) | payer MEDICARE, OTHER, SELFPAY ==
[2021-07-17 08:50] VITALS: BP 126/114; PULSE 70; RESP 18; TEMP 36.6; O2SAT 99; BMI 35.3
--- NOTE | 2021-07-17 09:18 | VDLE_ITS ---
Reason For Study: Pain RIGHT LEFT CFV is compressible. GSV is normal. Procedure CFV is compressible. This is a venous duplex using B-mode, color Acute deep vein thrombosis is noted in the flow and spectral Doppler. FV, PopV, T/P Trunk, GastrocV, PTV, PeroV, Exam performed portable in ED. and SoleusV. The exam was abbreviated due to the COVID 19 protocol. A preliminary report was called and/or faxed to Jose. VL/Venous Duplex US, Unilateral Interpretation Summary Acute deep venous thrombosis left femoral, popliteal, tibioperoneal trunk, renée rocnemius, posterior tibial, peroneal, and soleus veins Patent and compressible left great saphenous vein Covid-19 protocol utilized Ordering Physician: Calin Garcia Referring Physician: Sukhjinder Garcia Performed By: Za Ibrahim RVT
--- NOTE | 2021-07-17 09:18 | EDS_ITS ---
HPI History of Present Illness Chief Complaint: Lower Extremity Injury Narrative Narrative: 81-year-old female presenting with left leg pain. She is concerned she developed a blood clot in the left leg. Patient is on her third visit to the ER this week. She was diagnosed with Covid on the new year. She is already had the monoclonal antibodies. She states she does not feel much better but does not feel worse. She does have some mild dyspnea which has not changed. She is concerned she is developing DVT in the left leg secondary to pain. She does not note any swelling. She has had no trauma. She is not having chest pain. [facility] Medical History Diabetes History of kidney stones HTN (hypertension) Home Medications fish oil-dha-epa 1 ea PO BID 11/06/15 [History Last Taken 03/21/20] glimepiride 4 mg PO DAILY PRN 11/06/15 [History Last Taken 03/21/20] lisinopril 5 mg PO DAILY 11/06/15 [History Last Taken 03/21/20] Cholecalciferol (Vitamin D3) [Vitamin D3] 5,000 unit PO DAILY 03/21/20 [History Last Taken 03/21/20] garlic 1,000 mg PO DAILY 03/21/20 [History Last Taken 03/21/20] turmeric root extract 500 mg PO DAILY 03/21/20 [History Last Taken 03/20/20] pindolol 5 mg PO DAILY 03/22/20 [History Last Taken Unknown] ascorbic acid (vitamin C) 500 mg PO DAILY 08/14/20 [History Last Taken Unknown] albuterol sulfate [Ventolin HFA] 2 puff INHALATION Q4H PRN PRN #1 inhaler 07/13/21 [Rx Last Taken Unknown] apixaban [Eliquis DVT-PE Treat 30D Start] 5 mg PO BID #74 tab 07/17/21 [Rx Last Taken Unknown] Allergy/AdvReac Type Severity Reaction Status Date / Time diphenhydramine HCl AdvReac Other Verified 07/17/21 08:53 [From Benadryl] SLEEPING PILL AdvReac Other Uncoded 07/17/21 08:53 Social History Smoking Status: Never smoker ROS ROS ED Constitutional Constitutional ED: Denies chills or fever(s) Eyes Eyes: Denies blurry vision or diplopia ENT ENT ED: Denies rhinorrhea or sore throat Cardiovascular Cardiovascular: Denies chest pain or palpitations Respiratory/Chest Respiratory/Chest: Reports cough and dyspnea Gastrointestinal Gastrointestinal: Denies abdominal pain or nausea Genitourinary Genitourinary ED: Denies dysuria or hematuria Musculoskeletal Musculoskeletal: Denies arthralgias or myalgias Integumentary Denies abscess or rash Neurologic Neurologic: Denies headache(s), paresthesias or weakness EXAM Physical Exam Const Vital Signs: 07/17/21 08:50 07/17/21 11:30 Temperature 97.9 F Temperature Source Temporal Pulse Rate 70 72 Respiratory Rate 18 Blood Pressure 126/114 H Blood Pressure Mean 118 Pulse Ox 99 95 Oxygen Delivery Method Room Air Positive well nourished General Appearance ED: NAD HEENT Reports moist mucous membranes normocephalic and atraumatic Neck full ROM and supple Resp normal respiratory effort and clear to auscultation bilaterally Cardio regular rate and regular rhythm GI non-tender Palpation: soft Extremity normal to inspection and full ROM General Extremety ED: Negative for cyanosis or edema General Extremity: Negative for cyanosis or edema Neuro oriented x3 and CN's II-XII intact bilaterally Sensorium / Orientation: alert Psych mental status grossly normal Skin Lesions: No no lesions Rashes: No no rashes MDM MDM MDM Narrative Medical decision making narrative: Patient presented with left leg pain. I found no objective findings to suggest a DVT. Patient had a negative D-dimer just 3 days ago. I did explain it was less likely given this. I will obtain a DVT study of the left leg. The patient's daughter is at the bedside and she states that her mother has been complaining of shortness of breath but her oxygen below that they know of. Her O2 sats here today are 99%. Respiratory rate is 18. Pulse is 70. Patient is well-appearing. Lungs are clear to auscultation. DVT study was obtained of the left lower extremity and apparently there is an acute DVT extending from the left femoral into the popliteal, tibioperoneal trunk, gastrocnemius, posterior tibial, peroneal and soleal veins. Patient does not have any evidence of of PAD or PCD. This is an extensive DVT. She is not having any chest pain and her vital signs are normal. I will start her on Eliquis with first dose in the ED. She will follow-up with her PCP. She is given return precautions. Impression: 1. DVT Radiography Diagnostic Testing: Clinical Impression(s) from Imaging Studies Venous Doppler Study 07/17/21 09:18 Interpretation Summary Acute deep venous thrombosis left femoral, popliteal, tibioperoneal trunk, gastrocnemius, posterior tibial, peroneal, and soleus veins Patent and compressible left great saphenous vein Covid-19 protocol utilized Ordering Physician: Calin Garcia Referring Physician: Sukhjinder Garcia Performed By: Za Ibrahim RVT Discharge Plan Triage Chief Complaint: Lower Extremity Injury ED Provider: Calin Garcia Dx/Rx/DC Orders Instructions: ED Deep Vein Thrombosis (DVT) Prescriptions: New Eliquis DVT-PE Treat 30D Start 5 mg (74 tabs) tablets,dose pack 5 mg PO BID Qty: 74 RF: 0 No Action glimepiride 4 MG tablet 4 mg PO DAILY PRN (Reason: Hypoglycemia) RF: 0 lisinopril 5 MG tablet 5 mg PO DAILY RF: 0 fish oil-dha-epa 1 EACH capsule 1 ea PO BID RF: 0 garlic 1,000 MG capsule 1,000 mg PO DAILY RF: 0 turmeric root extract 500 MG capsule 500 mg PO DAILY RF: 0 Cholecalciferol (Vitamin D3) [Vitamin D3] 5,000 UNIT capsule 5,000 unit PO DAILY RF: 0 pindolol 5 mg tablet 5 mg PO DAILY RF: 0 ascorbic acid (vitamin C) 500 MG tablet 500 mg PO DAILY RF: 0 albuterol sulfate [Ventolin HFA] 1 INHALER inhaler 2 puff inhalation Q4H PRN PRN (Reason: Wheezing) Qty: 1 RF: 0 Primary Care Provider: Sukhjinder Garcia Referrals: Sukhjinder Garcia MD [Primary Care Provider] - Disposition Disposition: Home, Self Care Discharge Date/Time: 07/17/21 11:31
[2021-07-17] MEDS: APIXABAN 5 MG TABLET 10 MG PO (11:26)
[2021-07-17 11:30] VITALS: PULSE 72; O2SAT 95
== END 2021-07-17 11:31 | disposition home or self-care (01) ==
PROVIDERS: Emergency Provider Student in an Organized Health Care Education/Training Program; PCP Family Medicine; Visit Provider Student in an Organized Health Care Education/Training Program
DX: I82.402 Acute embolism and thrombosis of unspecified deep veins of left lower extremity (principal); E11.9 Type 2 diabetes mellitus without complications; I10 Essential (primary) hypertension; Z87.442 Personal history of urinary calculi; Z79.899 Other long term (current) drug therapy
CPT/HCPCS: 93971; 99283

== ENCOUNTER 2021-07-20 01:45 | Emergency (ER) | payer MEDICARE, OTHER, SELFPAY ==
[2021-07-20 01:51] VITALS: BP 190/69; PULSE 70; RESP 16; TEMP 36; O2SAT 96; BMI 34.4
[2021-07-20 01:55] VITALS: BP 190/69; PULSE 70; RESP 18; TEMP 36; O2SAT 96
--- NOTE | 2021-07-20 02:40 | CT_ITS ---
STUDY: CTA CHEST REASON FOR EXAM: Female, 81 years old. dyspnea RADIATION DOSAGE (If Supplied By Facility): CTDIvol = ( 13.32 ) mGy, DLP = ( 505.88 ) mGycm TECHNIQUE: The examination was performed with the intravenous administration of IV 100mL Isovue-370. Post-processing of the angiographic images was performed, with multiplanar reformation and 3D reconstruction. Individualized dose optimization techniques were used for this CT. COMPARISON: None. FINDINGS: Punctate nonocclusive pulmonary emboli in the second and third order branch vessels of the right upper lobe, right middle lobe and right lower lobe. No evidence of saddle component. No evidence of left-sided pulmonary emboli. Evidence of right heart strain. Normal thoracic aorta and visualized great vessels. There is no demonstrated aortic dissection. Mild cardiomegaly. Normal pericardium. Normal mediastinum. Normal hilar regions. Normal visualized trachea and bronchi. The lungs are well expanded. Subtle diffuse patchy groundglass airspace disease bilaterally compatible with low-grade COVID pneumonia Normal chest wall structures. Normal osseous structures. Normal visualized upper abdomen. CT/CTA Chest W/WO Contrast IMPRESSION: 1. Punctate nonocclusive right-sided pulmonary emboli as above 2. Low-grade diffuse COVID pneumonia Electronically Signed: Wesley Medina DO at 4:51 EST Tel , Service support ,
--- NOTE | 2021-07-20 02:40 | EKG12_ITS ---
Test Reason : DYSRHYTHMIA Blood Pressure : / mmHG Vent. Rate : 068 BPM Atrial Rate : 068 BPM P-R Int : 160 ms QRS Dur : 098 ms QT Int : 400 ms P-R-T Axes : 070 008 041 degrees QTc Int : 425 ms Normal sinus rhythm Nonspecific ST abnormality Abnormal ECG Confirmed by IRAIDA ROWLAND, RADHA ([id number]), editorial intern JOSEY YUEN ([id number]) on 07/23/2021 12:44:39 PM Referred By: SHAISTA Confirmed By:RADHA KHOURY MD
[2021-07-20 03:07] LABS: Absolute Lymphocyte Count 1.78 X10^3/uL (0.83-4.51); Basophil# 0.02 X10^3/uL; Basophil% 0.3 % (0-1); Eosinophil# 0.15 X10^3/uL; Hematocrit 35.6 % (37-47); Hemoglobin 11.8 g/dL (12.0-15.0); Lymphocyte # 1.78 X10^3/ul (0.83-4.51); Lymphocyte % 23.2 % (19-41); Mean Corp Hgb Conc 33.1 g/dL (32-36); Mean Corpuscular Hgb 29.4 pg (27.0-32.0); Mean Corpuscular Volume 88.6 fL (81-99); Monocyte# 0.72 X10^3/uL; Monocyte% 9.4 % (0-10); NRBC Flagged by Analyzer 0 % (0-5); Neutrophil # 4.97 X10^3/uL (2.7-7.7); Neutrophil % 64.8 % (47-70); Platelet Count 231 K/mm3 (150-450); RBC Distribution Width CV 13.4 % (11.6-14.6); RBC Distribution Width SD 43.8 fl (35.1-43.9); Red Blood Count 4.02 M/mm3 (4.2-5.4); White Blood Count 7.7 K/mm3 (4.4-11.0)
[2021-07-20] MEDS: dexAMETHasone 10 MG/ML Vial IV (03:07)
[2021-07-20 03:14] LABS: International Normalized Ratio 1.4; Prothrombin Time (Protime)PT. 16.5 SECONDS (11.7-14.9)
[2021-07-20 03:16] LABS: Partial Thromboplast Time 31.1 Seconds (24.1-36.2)
[2021-07-20 04:12] LABS: Anion Gap 9 (5-15); BUN 24 mg/dL (7-18); BUN/Creat Ratio 20.9 RATIO (10-20); Calcium,Total 9.1 mg/dL (8.5-10.1); Chloride 97 mmol/L (98-107); Creatinine, Serum 1.15 mg/dL (0.55-1.02); EST Glomerular Filtration Rate 48 mL/min (>60); Est Glom Filt Rate - Afr Amer 58 mL/min (>60); Estimated Creatinine Clearance 28.95 ml/min; Glucose 133 mg/dL (74-106); Magnesium 2.2 mg/dL (1.6-2.6); Potassium 4.3 mmol/L (3.5-5.1); Sodium Level 131 mmol/L (136-145); Troponin-I HS 17 pg/mL (3.0-54.0)
--- NOTE | 2021-07-20 05:07 | EX.ED.DYSGE1 ---
HPI History of Present Illness Chief Complaint: Shortness of Breath Narrative Narrative: Patient is a 81-year-old female who states she was diagnosed with Covid on July 13. She states she also has a blood clot in her left leg and is currently on Eliquis. She reports she also received monoclonal antibody therapy in the past 5 days. She states that last night and this morning she felt increased shortness of breath and secondary to this called EMS to bring her in for evaluation. Patient denies any history of lung disorder or need for supplemental oxygen [facility] Medical History Diabetes History of kidney stones HTN (hypertension) Home Medications fish oil-dha-epa 1 ea PO BID 11/06/15 [History Last Taken 03/21/20] glimepiride 4 mg PO DAILY PRN 11/06/15 [History Last Taken 03/21/20] lisinopril 5 mg PO DAILY 11/06/15 [History Last Taken 03/21/20] Cholecalciferol (Vitamin D3) [Vitamin D3] 5,000 unit PO DAILY 03/21/20 [History Last Taken 03/21/20] garlic 1,000 mg PO DAILY 03/21/20 [History Last Taken 03/21/20] turmeric root extract 500 mg PO DAILY 03/21/20 [History Last Taken 03/20/20] pindolol 5 mg PO DAILY 03/22/20 [History Last Taken Unknown] ascorbic acid (vitamin C) 500 mg PO DAILY 08/14/20 [History Last Taken Unknown] albuterol sulfate [Ventolin HFA] 2 puff INHALATION Q4H PRN PRN #1 inhaler 07/13/21 [Rx Last Taken Unknown] apixaban [Eliquis DVT-PE Treat 30D Start] 5 mg PO BID #74 tab 07/17/21 [Rx Last Taken Unknown] dexamethasone [Decadron] 6 mg PO DAILY 10 Days #10 tab 07/20/21 [Rx Last Taken Unknown] Allergy/AdvReac Type Severity Reaction Status Date / Time diphenhydramine HCl AdvReac Other Verified 07/17/21 08:53 [From Benadryl] SLEEPING PILL AdvReac Other Uncoded 07/17/21 08:53 Social History Smoking Status: Never smoker ROS ROS ED Constitutional Constitutional ED: Denies chills or fever(s) ENT ENT ED: Reports rhinorrhea; Denies sore throat Cardiovascular Cardiovascular: Denies chest pain, palpitations or racing heartbeat Respiratory/Chest Respiratory/Chest: Reports cough, dyspnea and sputum Gastrointestinal Gastrointestinal: Denies abdominal pain, diarrhea, nausea or vomiting Genitourinary Genitourinary ED: Denies dysuria Musculoskeletal Musculoskeletal: Reports myalgias Integumentary Denies rash Neurologic Neurologic: Reports headache(s) Hematologic/Lymphatic Hematologic/Lymphatic: Reports easy bleeding and easy bruising EXAM Physical Exam Const Vital Signs: 07/20/21 01:51 07/20/21 01:55 07/20/21 05:12 Temperature 96.8 F L 96.8 F L Temperature Source Temporal Temporal Pulse Rate 70 70 78 Respiratory Rate 16 18 18 Respiratory Effort Normal Respiratory Depth Normal Respiratory Pattern Normal Blood Pressure 190/69 H 190/69 H 200/87 H Blood Pressure Mean 109 109 124 Pulse Ox 96 96 96 Oxygen Delivery Method Room Air Room Air Room Air Positive well nourished and well developed General Appearance ED: well developed HEENT Reports moist mucous membranes HEENT Narrative: No tongue or lip swelling no oral lesions no airway edema or compromise Eyes PERRL and EOMs intact bilaterally Neck supple and no JVD Chest Wall palpation of chest normal Resp normal respiratory effort Resp Narrative: Breath sounds are diminished throughout with rhonchi noted in bilateral bases but no nasal flaring retractions tachypnea or accessory muscle use Cardio regular rate and regular rhythm Rate: other Other Details: Radial pulses are +2-4 bilaterally are equal and symmetric GI normal to inspection, nondistended, normoactive bowel sounds, non-tender, non-distended and no masses GI Narrative: No voluntary guarding or rigidity no pulsatile mass Auscultation: normoactive bowel sounds Palpation: soft Extremity normal to inspection Extremity Narrative: There is asymmetric edema of the patient's left lower extremity compared to right which is consistent with her recent diagnosis of DVT but negative Homans' sign Neuro oriented x3 and CN's II-XII intact bilaterally Sensorium / Orientation: alert Motor Exam: strength 5/5 throughout Psych Mood & Affect: anxious Skin no rashes or lesions noted MDM MDM MDM Narrative Medical decision making narrative: Patient presented to the ER hypertensive but did not take her hypertensive medications today. She has no signs of respiratory distress and her pulse ox is in the mid 90s on room air. With her report of increased shortness of breath and her Covid diagnosis I did elect to perform a CTA. CT showed Covid pneumonia and also a small punctate right-sided pulmonary embolus without heart strain. At this time she does not have heart strain or signs of cardiac damage or acute kidney injury she is not hypoxic and requiring supplemental oxygen so there is no need to keep her in the hospital and patient is safe for discharge Lab Data Attestation: I reviewed the patient's lab results. Labs: Laboratory Results - last 24 hr 07/20/21 07/20/21 07/20/21 03:00 03:00 03:00 WBC 7.7 RBC 4.02 L Hgb 11.8 L Hct 35.6 L MCV 88.6 MCH 29.4 MCHC 33.1 RDW Std Deviation 43.8 RDW Coeff of Angelina 13.4 Plt Count 231 MPV 10.0 Immature Gran % (Auto) 0.300 Neut % (Auto) 64.8 Lymph % (Auto) 23.2 [place] % (Auto) 9.4 Eos % (Auto) 2.0 Baso % (Auto) 0.3 Absolute Neuts (auto) 5.0 Absolute Lymphs (auto) 1.78 Nucleated RBC % 0 PT 16.5 H INR 1.4 APTT 31.1 Sodium 131 L Potassium 4.3 Chloride 97 L Carbon Dioxide 25.0 Anion Gap 9 BUN 24 H Creatinine 1.15 H Estim Creat Clear Calc 28.95 Est GFR (MDRD) Af Amer 58 L Est GFR (MDRD) Non-Af 48 L BUN/Creatinine Ratio 20.9 H Glucose 133 H Calcium 9.1 Magnesium 2.2 Troponin I High Sens 17 Radiography Diagnostic Testing: Clinical Impression(s) from Imaging Studies Chest CTA 07/20/21 02:40 IMPRESSION: 1. Punctate nonocclusive right-sided pulmonary emboli as above 2. Low-grade diffuse COVID pneumonia Electronically Signed: Wesley Medina DO at 4:51 EST Tel , Service support , Discharge Plan Triage Chief Complaint: Shortness of Breath ED Provider: Percy Null Dx/Rx/DC Orders Clinical Impression: Pneumonia due to 2019 novel coronavirus, Pulmonary emboli Instructions: Pulmonary Embolism, Coronavirus Disease 2019 (COVID-19): Caring for Yourself or Others Prescriptions: New dexamethasone [Decadron] 6 mg tablet 6 mg PO DAILY 10 Days Qty: 10 RF: 0 No Action glimepiride 4 MG tablet 4 mg PO DAILY PRN (Reason: Hypoglycemia) RF: 0 lisinopril 5 MG tablet 5 mg PO DAILY RF: 0 fish oil-dha-epa 1 EACH capsule 1 ea PO BID RF: 0 garlic 1,000 MG capsule 1,000 mg PO DAILY RF: 0 turmeric root extract 500 MG capsule 500 mg PO DAILY RF: 0 Cholecalciferol (Vitamin D3) [Vitamin D3] 5,000 UNIT capsule 5,000 unit PO DAILY RF: 0 pindolol 5 mg tablet 5 mg PO DAILY RF: 0 ascorbic acid (vitamin C) 500 MG tablet 500 mg PO DAILY RF: 0 albuterol sulfate [Ventolin HFA] 1 INHALER inhaler 2 puff inhalation Q4H PRN PRN (Reason: Wheezing) Qty: 1 RF: 0 Eliquis DVT-PE Treat 30D Start 5 mg (74 tabs) tablets,dose pack 5 mg PO BID Qty: 74 RF: 0 Primary Care Provider: Sukhjinder Garcia Referrals: Sukhjinder Garcia MD [Primary Care Provider] - Activity Restrictions/Additional Instructions: Please continue take your Eliquis as previously directed and you can use your albuterol inhaler at 1 to 2 puffs every 4-6 hours as needed for shortness of breath. If your symptoms worsen or you have any further concerns please return to the ER for evaluation. Disposition Disposition: Home, Self Care Discharge Date/Time: 07/20/21 06:33
[2021-07-20 05:12] VITALS: BP 200/87; PULSE 78; RESP 18; O2SAT 96
== END 2021-07-20 06:33 | disposition home or self-care (01) ==
PROVIDERS: Emergency Provider Emergency Medicine; PCP Family Medicine; Visit Provider Emergency Medicine
DX: U07.1 COVID-19 (principal); I26.99 Other pulmonary embolism without acute cor pulmonale; I82.402 Acute embolism and thrombosis of unspecified deep veins of left lower extremity; E11.9 Type 2 diabetes mellitus without complications; J12.82 Pneumonia due to coronavirus disease 2019; I10 Essential (primary) hypertension; Z79.01 Long term (current) use of anticoagulants; Z79.84 Long term (current) use of oral hypoglycemic drugs; Z79.899 Other long term (current) drug therapy
CPT/HCPCS: 71275; 80048; 83735; 84484; 85025; 85610; 85730; 93005; 96374; 99285; Q9967; A4216

== ENCOUNTER 2021-09-05 12:04 | Observation (INO) | payer OTHER, MEDICARE, SELFPAY ==
[2021-09-05 12:05] VITALS: PULSE 86; RESP 16; TEMP 37; O2SAT 98; BMI 33.4
[2021-09-05 12:23] VITALS: BP 188/96; PULSE 80; RESP 18; O2SAT 98
--- NOTE | 2021-09-05 12:23 | RAD_ITS ---
STUDY: X-RAY - LEFT SHOULDER REASON FOR EXAM: Female, 81 years old. Injury. Pain. TECHNIQUE: 3 view(s) of the shoulder. COMPARISON: None. FINDINGS: Osteopenia. Moderate arthrosis of the glenohumeral joint. Mild arthrosis of the AC joint. Comminuted impacted fracture of the surgical neck of the left humerus with avulsion of the greater tuberosity. Soft tissue swelling with joint effusion. Normal visualized pulmonary apex. RAD/Shoulder min 2 Views IMPRESSION: Proximal humeral fracture as described. Osteoarthritic changes. Electronically Signed: Jarred Knight MD at 13:23 EST ,
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
[2021-09-05] MEDS: traMADol 50 MG Tablet PO (12:33)
[2021-09-05] MEDS: Ondansetron ODT 4 MG Tablet PO (12:35)
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
--- NOTE | 2021-09-05 12:54 | RAD_ITS ---
STUDY: X-RAY - PELVIS REASON FOR EXAM: Female, 81 years old. Hip pain. TECHNIQUE: One view of the pelvis was obtained. COMPARISON: None. FINDINGS: There is a non-specific bowel gas pattern. Normal visualized soft tissue structures. Osteopenia. Normal bilateral iliac wings, sacroiliac joints and visualized sacrum. Normal visualized bilateral superior and inferior pubic rami. Normal pubic symphysis. Normal ischial tuberosities. Mild arthrosis of both hips. RAD/Pelvis 1 or 2 Views IMPRESSION: Osteopenia with mild arthrosis of both hips. No other abnormality. Electronically Signed: Jarred Knight MD at 13:29 EST ,
[2021-09-05] MEDS: Morphine 2 MG/ML Syringe IV ×2 (13:18→14:17)
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
[2021-09-05 14:55] VITALS: BP 178/80; PULSE 80; RESP 18; TEMP 36.6; O2SAT 97
[2021-09-05 15:35] LABS: Absolute Lymphocyte Count 1.25 X10^3/uL (0.83-4.51); Absolute Neutrophil Count 6.2 X10^3/uL (2.0-7.7); Basophil# 0.04 X10^3/uL; Basophil% 0.5 % (0-1); Eosinophil# 0.02 X10^3/uL; Eosinophils% 0.2 % (0-5); Hematocrit 40.9 % (37-47); Hemoglobin 13.6 g/dL (12.0-15.0); Lymphocyte # 1.25 X10^3/ul (0.83-4.51); Lymphocyte % 15.4 % (19-41); Mean Corp Hgb Conc 33.3 g/dL (32-36); Mean Corpuscular Hgb 30.4 pg (27.0-32.0); Mean Corpuscular Volume 91.3 fL (81-99); Mean Platelet Vol. 11.5 fl (6.2-12.0); Monocyte# 0.56 X10^3/uL; Monocyte% 6.9 % (0-10); NRBC Flagged by Analyzer 0 % (0-5); Neutrophil # 6.18 X10^3/uL (2.7-7.7); Neutrophil % 76.1 % (47-70); Platelet Count 238 K/mm3 (150-450); RBC Distribution Width SD 50.2 fl (35.1-43.9); Red Blood Count 4.48 M/mm3 (4.2-5.4); White Blood Count 8.1 K/mm3 (4.4-11.0)
[2021-09-05 15:44] VITALS: BP 165/78; PULSE 86; RESP 17; TEMP 36.6; O2SAT 98; BMI 33.4
[2021-09-05 15:47] LABS: ALB/GLOB Ratio 0.9 RATIO (0.9-2.4); AST(SGOT) 22 U/L (15-37); Alanine Aminotransfer ALT/SGPT 20 U/L (13-56); Albumin, Serum 3.9 g/dL (3.2-5.0); Alkaline Phosphatase 68 U/L (45-117); Anion Gap 7 (5-15); BUN 37 mg/dL (7-18); BUN/Creat Ratio 27.8 RATIO (10-20); Calcium,Total 9.9 mg/dL (8.5-10.1); Chloride 105 mmol/L (98-107); Creatinine, Serum 1.33 mg/dL (0.55-1.02); EST Glomerular Filtration Rate 41 mL/min (>60); Est Glom Filt Rate - Afr Amer 49 mL/min (>60); Estimated Creatinine Clearance 25.03 ml/min; Globulin 4.2 g/dL (2.2-4.2); Glucose 124 mg/dL (74-106); Potassium 4.1 mmol/L (3.5-5.1); Protein, Total 8.1 g/dL (6.4-8.2); Sodium Level 138 mmol/L (136-145)
--- NOTE | 2021-09-05 16:12 | CM.ED ---
Referral Source: RN ROSEMARY met with patient and her daughter. Daughter reported that she was willing for patient to come to her house for as long as she needs it and that her other sister is coming from [place]. Patient's daughter said that they have bathroom upstairs so patient would have to scoot on her bottom . Daughter stated that she can't have patient moaning and complaining while at her house. Patient then said she would want to go to SNF. Patient was provided with handout on the list of SNF. ROSEMARY updated RN and MD Plan: Patient wants SNF [facility]
[2021-09-05] MEDS: Insulin Lispro 100 UNIT/ML INSULN.PEN SC ×2 (17:55→21:54)
[2021-09-05 18:46] LABS: Bedside Glucose 329 mg/dL (70-110)
[2021-09-05 19:41] VITALS: BP 136/50; PULSE 95; RESP 18; TEMP 36.5; O2SAT 98
[2021-09-05] MEDS: Acetaminophen 325 MG Tablet 650 MG PO (19:47)
[2021-09-05] MEDS: hydrOXYzine PAM 25 MG Capsule PO (20:09)
[2021-09-05] MEDS: APIXABAN 5 MG TABLET PO (21:48)
[2021-09-05] MEDS: 0.9% Saline Lock 10 ML Syringe IV (21:50)
[2021-09-05] MEDS: oxyCODONE 5 MG Tablet PO (21:59)
[2021-09-05 22:01] LABS: Bedside Glucose 357 mg/dL (70-110)
[2021-09-06 02:05] VITALS: BP 146/54; PULSE 78; RESP 16; TEMP 36.8; O2SAT 97
[2021-09-06 06:02] LABS: Absolute Neutrophil Count 6.6 X10^3/uL (2.0-7.7); Basophil# 0.03 X10^3/uL; Basophil% 0.3 % (0-1); Eosinophil# 0.03 X10^3/uL; Eosinophils% 0.3 % (0-5); Hematocrit 29.6 % (37-47); Hemoglobin 9.5 g/dL (12.0-15.0); Lymphocyte % 16.7 % (19-41); Mean Corp Hgb Conc 32.1 g/dL (32-36); Mean Corpuscular Hgb 29.2 pg (27.0-32.0); Mean Corpuscular Volume 91.1 fL (81-99); Mean Platelet Vol. 11.3 fl (6.2-12.0); Monocyte# 0.82 X10^3/uL; Monocyte% 9.1 % (0-10); NRBC Flagged by Analyzer 0 % (0-5); Neutrophil % 73.4 % (47-70); Platelet Count 183 K/mm3 (150-450); RBC Distribution Width CV 14.8 % (11.6-14.6); RBC Distribution Width SD 49.4 fl (35.1-43.9); Red Blood Count 3.25 M/mm3 (4.2-5.4)
[2021-09-06] MEDS: Insulin Lispro 100 UNIT/ML INSULN.PEN SC ×4 (06:35→19:42)
[2021-09-06 06:36] LABS: ALB/GLOB Ratio 0.9 RATIO (0.9-2.4); AST(SGOT) 11 U/L (15-37); Alanine Aminotransfer ALT/SGPT 16 U/L (13-56); Alkaline Phosphatase 53 U/L (45-117); Anion Gap 7 (5-15); BUN 48 mg/dL (7-18); Calcium,Total 8.8 mg/dL (8.5-10.1); Chloride 102 mmol/L (98-107); Creatinine, Serum 1.23 mg/dL (0.55-1.02); EST Glomerular Filtration Rate 45 mL/min (>60); Est Glom Filt Rate - Afr Amer 54 mL/min (>60); Estimated Creatinine Clearance 27.07 ml/min; Globulin 3.3 g/dL (2.2-4.2); Glucose 220 mg/dL (74-106); Potassium 4.7 mmol/L (3.5-5.1); Protein, Total 6.3 g/dL (6.4-8.2); Sodium Level 135 mmol/L (136-145)
[2021-09-06 06:51] LABS: Bedside Glucose 219 mg/dL (70-110)
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
[2021-09-06 07:46] VITALS: O2SAT 92
[2021-09-06 07:58] VITALS: BP 134/65; PULSE 87; RESP 16; TEMP 36.7; O2SAT 94
[2021-09-06] MEDS: Acetaminophen 325 MG Tablet 650 MG PO ×3 (08:06→16:26)
[2021-09-06] MEDS: APIXABAN 5 MG TABLET PO ×2 (10:30→19:44)
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
[2021-09-06 12:16] LABS: Bedside Glucose 252 mg/dL (70-110)
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
[2021-09-06 14:25] LABS: Hematocrit 28.6 % (37-47); Hemoglobin 9.8 g/dL (12.0-15.0)
[2021-09-06] MEDS: hydrOXYzine PAM 25 MG Capsule PO (14:41)
[2021-09-06] MEDS: 0.9% Saline Lock 10 ML Syringe IV (14:43)
[2021-09-06] MEDS: 0.9% Normal Saline 1,000 ML 75 ML IV (14:45)
[2021-09-06 14:53] VITALS: BP 152/60; PULSE 79; RESP 18; TEMP 37.3; O2SAT 95
[2021-09-06] MEDS: Lisinopril 5 MG Tablet PO (14:56)
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
--- NOTE | 2021-09-06 15:52 | CASEMGMT ---
RN CM in to discuss RAMOS form with patient. RN CM explained RAMOS form, patient voiced understanding. Pt signed form and filed in chart. Pt provided with a copy of signed RAMOS form. Pt dtr present in room as well. Patient had no further questions or concerns at this time.
[2021-09-06 16:20] LABS: Bedside Glucose 242 mg/dL (70-110)
--- NOTE | 2021-09-06 16:50 | NURSING ---
REPORT CALLED TO SUSAN AT [facility] - THEY ARE AWARE THAT PT WILL NOT BE PICKED UP UNTIL 2100
--- NOTE | 2021-09-06 17:01 | CASEMGMT ---
Social Work Note SW received message from Annette at [facility] stating they can accept pt today, asked if pt was vaccinated for COVID. SW in to speak with pt. ROSEMARY introduced self and role at [facility]. ROSEMARY informed pt that [facility] can accept pt and asked pt about vaccine. Pt states she has not had the COVID vaccine. SW updated physician on acceptance to SNF. Pt is medically ready for discharge today. ROSEMARY placed a call to Annette at [facility] and left message updating her that pt is not vaccinated for COVID and will be discharged today. PAS/RR completed. ROSEMARY faxed completed discharge paperwork to Annette at [facility] including transfer to extended care facility, signed medication list, any scripts, and PAS/RR and PAS/RR results. Original in SNF folder and copy on pt's chart. ROSEMARY accessed trip assist and earliest Physician's can transport pt via wheelchair van is 9:00pm. Transportation arranged. Transportation form completed and placed on SNF folder and copy on pt's chart. ROSEMARY updated RN on transportation time. ROSEMARY placed a call to Annette at [facility] and left message updating her on transportation time and that COVID test/tool will be faxed once completed. ROSEMARY asked bilingual secretary to fax COVID test/tool to [facility] and place originals in SNF folder once completed. Fax number ([phone]). ROSEMARY in to speak with pt and pt's daughter Lakisha present in room. SW updated pt and Lakisha on discharge to [facility] today at 9:00pm. Pt and Lakisha state understanding. Plan: [facility] skilled today under PAS/RR level of care with Physician's transporting pt via wheelchair van at 9:00pm [employer], [employer]
[2021-09-06 17:32] VITALS: BP 133/54; PULSE 93; RESP 18; TEMP 36.5; O2SAT 95
[2021-09-06 19:50] LABS: Bedside Glucose 324 mg/dL (70-110)
[2021-09-06 20:00] VITALS: BP 121/47; PULSE 86; RESP 18; TEMP 37; O2SAT 93
== END 2021-09-06 21:20 | disposition skilled nursing facility (03) ==
LOC: ED 13:14 → MS3 15:02
PROVIDERS: Admitting Provider Family Medicine; Emergency Provider Physician Assistant; PCP Family Medicine; Visit Provider Internal Medicine
DX: S42.212A Unspecified displaced fracture of surgical neck of left humerus, initial encounter for closed fracture (principal); E11.22 Type 2 diabetes mellitus with diabetic chronic kidney disease; N18.4 Chronic kidney disease, stage 4 (severe); I12.9 Hypertensive chronic kidney disease with stage 1 through stage 4 chronic kidney disease, or unspecified chronic kidney disease; M19.012 Primary osteoarthritis, left shoulder; Z79.84 Long term (current) use of oral hypoglycemic drugs; Z79.01 Long term (current) use of anticoagulants; E66.9 Obesity, unspecified; S70.02XA Contusion of left hip, initial encounter; E78.5 Hyperlipidemia, unspecified; Z79.899 Other long term (current) drug therapy; Z86.16 Personal history of COVID-19; Z86.718 Personal history of other venous thrombosis and embolism; V47.5XXA Car driver injured in collision with fixed or stationary object in traffic accident, initial encounter; Y93.89 Activity, other specified; Y99.9 Unspecified external cause status; Y92.410 Unspecified street and highway as the place of occurrence of the external cause; F41.9 Anxiety disorder, unspecified; Z68.34 Body mass index [BMI] 34.0-34.9, adult
CPT/HCPCS: 36415; 71046; 72170; 73030; 80053; 82962; 85014; 85018; 85025; 87426; 96361; 96374; 96376; 97162; 97166; 99218; 99251; 99285; J7030; A4216; G0378; G0463

== ENCOUNTER → 2021-09-07 | Outpatient (REF) | payer SELFPAY ==
[2021-09-07 09:11] LABS: Absolute Lymphocyte Count 1.83 X10^3/uL (0.83-4.51); Absolute Neutrophil Count 6.3 X10^3/uL (2.0-7.7); Basophil# 0.04 X10^3/uL; Basophil% 0.4 % (0-1); Eosinophil# 0.17 X10^3/uL; Eosinophils% 1.8 % (0-5); Hematocrit 25.8 % (37-47); Hemoglobin 8.6 g/dL (12.0-15.0); Lymphocyte # 1.83 X10^3/ul (0.83-4.51); Lymphocyte % 19.7 % (19-41); Mean Corp Hgb Conc 33.3 g/dL (32-36); Mean Corpuscular Hgb 29.8 pg (27.0-32.0); Mean Corpuscular Volume 89.3 fL (81-99); Mean Platelet Vol. 11.5 fl (6.2-12.0); Monocyte# 0.97 X10^3/uL; Monocyte% 10.4 % (0-10); NRBC Flagged by Analyzer 0 % (0-5); Neutrophil # 6.25 X10^3/uL (2.7-7.7); Neutrophil % 67.2 % (47-70); Platelet Count 168 K/mm3 (150-450); RBC Distribution Width CV 14.9 % (11.6-14.6); RBC Distribution Width SD 49.1 fl (35.1-43.9); Red Blood Count 2.89 M/mm3 (4.2-5.4); White Blood Count 9.3 K/mm3 (4.4-11.0)
== END | disposition home or self-care (01) ==
LOC: OLS.ACH 05:00
PROVIDERS: PCP Family Medicine
DX: S42.212D Unspecified displaced fracture of surgical neck of left humerus, subsequent encounter for fracture with routine healing (principal)
CPT/HCPCS: 36415; 85025

== ENCOUNTER → 2021-09-08 | Outpatient (REF) | payer SELFPAY ==
[2021-09-08 10:44] LABS: Absolute Lymphocyte Count 1.86 X10^3/uL (0.83-4.51); Absolute Neutrophil Count 9.4 X10^3/uL (2.0-7.7); Basophil# 0.04 X10^3/uL; Basophil% 0.3 % (0-1); Eosinophil# 0.31 X10^3/uL; Eosinophils% 2.4 % (0-5); Hematocrit 28.5 % (37-47); Hemoglobin 9.5 g/dL (12.0-15.0); Lymphocyte # 1.86 X10^3/ul (0.83-4.51); Lymphocyte % 14.6 % (19-41); Mean Corp Hgb Conc 33.3 g/dL (32-36); Mean Corpuscular Hgb 30.4 pg (27.0-32.0); Mean Corpuscular Volume 91.1 fL (81-99); Mean Platelet Vol. 11.2 fl (6.2-12.0); Monocyte# 1.07 X10^3/uL; Monocyte% 8.4 % (0-10); NRBC Flagged by Analyzer 0 % (0-5); Neutrophil # 9.38 X10^3/uL (2.7-7.7); Neutrophil % 73.7 % (47-70); Platelet Count 208 K/mm3 (150-450); RBC Distribution Width CV 15.3 % (11.6-14.6); RBC Distribution Width SD 50.9 fl (35.1-43.9); Red Blood Count 3.13 M/mm3 (4.2-5.4); White Blood Count 12.7 K/mm3 (4.4-11.0)
== END | disposition home or self-care (01) ==
LOC: OLS.ACH 10:15
PROVIDERS: PCP Family Medicine; Visit Provider Family Medicine
DX: D64.9 Anemia, unspecified (principal)
CPT/HCPCS: 36415; 85025

== ENCOUNTER → 2021-09-25 | Outpatient (REF) | payer SELFPAY ==
[2021-09-25 09:44] LABS: Anion Gap 4 (5-15); BUN 28 mg/dL (7-18); BUN/Creat Ratio 27.2 RATIO (10-20); Calcium,Total 8.7 mg/dL (8.5-10.1); Chloride 105 mmol/L (98-107); Creatinine, Serum 1.03 mg/dL (0.55-1.02); EST Glomerular Filtration Rate 55 mL/min (>60); Est Glom Filt Rate - Afr Amer 66 mL/min (>60); Glucose 88 mg/dL (74-106); Potassium 3.9 mmol/L (3.5-5.1); Sodium Level 138 mmol/L (136-145)
== END | disposition home or self-care (01) ==
LOC: OLS.ACH 04:00
PROVIDERS: PCP Family Medicine; Referring Provider Family Medicine; Visit Provider Family Medicine
DX: E11.22 Type 2 diabetes mellitus with diabetic chronic kidney disease (principal); N18.4 Chronic kidney disease, stage 4 (severe)
CPT/HCPCS: 36415; 80048; 83036